=== PATIENT | male | born 1940 | race Caucasian/White ===

== ENCOUNTER 2018-04-08 15:50 | Inpatient (IN) | payer OTHER ==
[2018-04-08] MEDS ORDERED: METOPROLOL TARTRATE 5 MG/5 ML INJ IV ONE (17:01)
[2018-04-08] MEDS ORDERED: NA CHLORIDE 0.9% 1,000 ML ONE (17:05)
[2018-04-08 17:14] LABS: Absolute Lymphocytes (CBC) 1.1 K/uL (0.7-4.9); Absolute Monocytes 0.7 K/uL (0.1-1.3); Absolute Neutrophil 7.5 K/uL (1.8-8.0); Basophils % 0.7 % (0-1.3); Eosinophils % 0.5 % (0-4.4); Hematocrit 34.7 % (39.6-49.0); Lymphocytes % 11.6 % (15.3-44.8); MCH 26.7 pg (27.0-35.0); MCV 82.7 fL (80-100); MPV 8.1 fL (7.6-11.3)
--- NOTE | 2018-04-08 17:17 | RAD REPORT ---
EXAM DESCRIPTION: RAD - Chest Single View - 04/08/2018 5:07 pm CLINICAL HISTORY: Chest pain, shortness of breath, hypotension COMPARISON: September 2010 TECHNIQUE: AP portable chest image was obtained 1653 hours . FINDINGS: No mass, consolidation or failure. Lung markings are not substantially different when adju sting for technique differences. Minimal interstitial edema or infiltrate could be masked. Trachea is midline. Diaphragmatic eventration is noted and stable. Heart and vasculature are normal. No measurable pleural effusion and no pneumothorax. No gross bony abnormality seen. No acute aortic f indings suspected. IMPRESSION: No failure, focal infiltrate or mass lesion. Lung markings are prominent but not substantially different. Mild failure or volume overload could be masked.
[2018-04-08 17:21] LABS: Potassium 4.4 mEq/L (3.6-5.0)
--- NOTE | 2018-04-08 17:21 | EKG ---
Test Date: 2018-04-08 Test Time: 16:36:27 Ammunition Officer: LUCIO MEASUREMENT RESULTS: Intervals: Rate: 152 [place]: QRSD: 94 QT: 304 QTc: 483 [place]: P: WA: QRS: 2 T: 86 INTERPRETIVE STATEMENTS: Atrial fibrillation with rapid ventricular response Abnormal ECG Compared to ECG 06/19/2017 07:19:09 Sinus bradycardia no longer present Electronically Signed On 04-08-18 17:19:59 CDT by Diaz Razo
[2018-04-08 17:31] LABS: Protime INR 1.06
[2018-04-08 17:42] LABS: Albumin 3.8 g/dL (3.2-5.5); Bilirubin Direct 0.1 mg/dL (0-0.2); Bilirubin Total 0.6 mg/dL (0.3-1.2); Magnesium 1.8 mg/dL (1.8-2.5); Protein, Total 7.1 g/dL (6.0-8.3)
--- NOTE | 2018-04-08 18:19 | ER ---
Nurse's Notes [facility] Name: Lauro Masters Age: 77 yrs Sex: Male : 1940 Arrival Date: 04/08/2018 Time: 15:54 Bed 16 Private MD: Diagnosis: Atrial fibrillation and flutter;Cough Presentation: 04/08 16:16 Presenting complaint: Patient states: Reports low BP at home with SOB, CP and aj dizziness. Patient lost his 3 weeks ago. Patient is in NAD in triage. Ambulated with steady gait. Transition of care: patient was not received from another setting of care. Onset of symptoms was April 08, 2018. Care prior to arrival: None. 16:16 Method Of Arrival: Ambulatory aj 16:16 Acuity: KATHLEEN 3 aj 19:05 Initial Sepsis Screen: Does the patient meet any 2 criteria? HR > 90 bpm. Does the ea patient have a suspected source of infection? No. Patient's initial sepsis screen is negative. Triage Assessment: 16:18 General: Appears in no apparent distress. comfortable, Behavior is calm, cooperative, aj appropriate for age. Pain: Complains of pain in chest. Neuro: Level of Consciousness is awake, alert, obeys commands, Oriented to person, place, time, situation. Cardiovascular: Reports chest pain, shortness of breath, Capillary refill < 3 seconds in bilateral fingers Patient's skin is warm and dry. Respiratory: Reports shortness of breath at rest Airway is patent Respiratory effort is even, unlabored, Respiratory pattern is regular, symmetrical. Derm: Skin is intact, is healthy with good turgor, Skin is pink, warm \T\ dry. normal. Historical: - Allergies: 16:18 No Known Allergies; aj - Home Meds: 16:18 aspirin 81 mg Oral chew [Active]; hydrochlorothiazide 25 mg Oral tab [Active]; aj lisinopril 20 mg Oral tab [Active]; simvastatin 20 mg Oral tab [Active]; Prilosec Oral [Active]; metformin 500 mg Oral TG24 [Active]; - PMHx: 16:18 Hyperlipidemia; Hypertension; aj - PSHx: 16:18 colon cancer; aj - Immunization history:: Adult Immunizations up to date. - Social history:: Smoking status: Patient/guardian denies using tobacco. Screenin:40 Abuse screen: Denies threats or abuse. Denies injuries from another. Nutritional sg screening: No deficits noted. Tuberculosis screening: No symptoms or risk factors identified. Never had TB. Fall Risk None identified. Assessment: 17:15 General: Appears in no apparent distress. comfortable, well groomed, well developed, sg well nourished, Behavior is calm, cooperative, appropriate for age. Pain: Denies pain. Neuro: Level of Consciousness is awake, alert, obeys commands, Oriented to person, place, time, situation, Crown Assembly Machine Operator are equal bilaterally Moves all extremities. Full function Gait is steady, Speech is normal, Facial symmetry appears normal. Cardiovascular: Heart tones S1 S2 present Capillary refill is brisk in bilateral fingers Patient's skin is warm and dry. Chest pain is denied. Respiratory: Airway is patent Respiratory effort is even, unlabored, Respiratory pattern is regular, symmetrical, Breath sounds are clear. GI: Abdomen is round non-distended, Bowel sounds. GI: Reports normal bowel habits. : No signs and/or symptoms were reported regarding the genitourinary system. EENT: No signs and/or symptoms were reported regarding the EENT system. Derm: Skin is pink, warm \T\ dry. Musculoskeletal: No signs and/or symptoms reported regarding the musculoskeletal system. 17:56 Reassessment: Patient appears in no apparent distress at this time. Patient and/or sg family updated on plan of care and expected duration. Pain level reassessed. Patient is alert, oriented x 3, equal unlabored respirations, skin warm/dry/pink. Patient denies pain at this time. 18:25 Reassessment: Patient appears in no apparent distress at this time. Patient and/or sg family updated on plan of care and expected duration. Pain level reassessed. Patient is alert, oriented x 3, equal unlabored respirations, skin warm/dry/pink. Patient denies pain at this time. 19:00 Reassessment: Patient appears in no apparent distress at this time. Patient and/or sg family updated on plan of care and expected duration. Pain level reassessed. Patient is alert, oriented x 3, equal unlabored respirations, skin warm/dry/pink. Patient denies pain at this time. 19:05 General: Appears in no apparent distress. comfortable, Behavior is calm, cooperative, ea appropriate for age. Pain: Denies pain. Neuro: Level of Consciousness is awake, alert, obeys commands, Oriented to person, place, time, situation, Crown Assembly Machine Operator are equal bilaterally Speech is normal, Facial symmetry appears normal. 19:05 Cardiovascular: Heart tones S1 S2 present Patient's skin is warm and dry. Chest pain is ea denied. Respiratory: Airway is patent Respiratory effort is even, unlabored, Respiratory pattern is regular, symmetrical, Breath sounds are clear bilaterally. GI: Abdomen is non-distended, Bowel sounds present X 4 quads. : No signs and/or symptoms were reported regarding the genitourinary system. EENT: No signs and/or symptoms were reported regarding the EENT system. Derm: Skin is pink, warm \T\ dry. 19:50 Reassessment: Patient and/or family updated on plan of care and expected duration. Pain ea level reassessed. Patient is alert, oriented x 3, equal unlabored respirations, skin warm/dry/pink. Report called to receiving nurse on fourth floor. Vital Signs: 16:18 BP 124 / 105; Pulse 86; Resp 20; Temp 98.0; Pulse Ox 98% on R/A; Weight 90.72 kg; aj Height 6 ft. 0 in. (182.88 cm); 17:08 Pulse 152 MON; Resp 14 S; Pulse Ox 98% on R/A; Pain 0/10; sg 17:31 BP 102 / 58; Pulse 107 MON; Resp 14 S; Pulse Ox 96% on R/A; Pain 0/10; sg 17:55 BP 111 / 78; Pulse 126; Resp 19 S; Pulse Ox 96% on R/A; Pain 0/10; sg 19:00 BP 131 / 90; Pulse 89; Resp 18; Pulse Ox 98% on R/A; Pain 0/10; ea 19:45 BP 127 / 68; Pulse 61; Resp 18; Temp 97.5(O); Pulse Ox 99% on R/A; Pain 0/10; ea 16:18 Body Mass Index 27.12 (90.72 kg, 182.88 cm) aj 17:08 A fib sg 17:08 notified of VS and cardiac rythm, Orders recieved, see EMAR sg ED Course: 15:54 Patient arrived in ED. mr 16:17 Triage completed. aj 16:18 Lyle Buckley MD is Attending Physician. kdr 16:18 Arm band placed on left wrist. Patient placed in an exam room. yonathan 16:55 Robert Ramirez, RN is Primary Nurse. sg 17:00 Initial lab(s) drawn, by ED staff, sent to lab. Inserted saline lock: 20 gauge in right sg antecubital area, using aseptic technique. Blood collected. IV inserted by credit support specialist Cole. 17:08 CXR XRAY In Process Unspecified. EDMS 17:08 X-ray completed. Portable x-ray completed in exam room. Patient tolerated procedure bb2 well. 17:09 EKG done, by structures technician. reviewed by Lyle Buckley MD. at1 17:10 IV was discontinued by the patient. a pressure dressing was applied, bleeding sg controlled. Inserted saline lock: 20 gauge in left forearm, using aseptic technique. 18:18 Angel Ashford MD is Hospitalizing Provider. kdr 19:05 Patient has correct armband on for positive identification. Bed in low position. Call ea light in reach. 19:47 Dianne Anderson RN is Primary Nurse. ea 20:12 No provider procedures requiring assistance completed. Patient admitted, IV remains in ea place. Administered Medications: 17:03 Drug: Lopressor 5 mg Route: IVP; Site: left forearm; iw 19:05 Follow up: Response: No adverse reaction; Blood pressure is lowered ea 17:10 Drug: NS 0.9% 250 ml Route: IV; Rate: bolus; Site: left wrist; sg 18:26 Drug: PlaVIX 300 mg Route: PO; sg 19:00 Follow up: Response: No adverse reaction ea 18:26 Drug: Lopressor 25 mg Route: PO; sg 20:16 Follow up: Response: No adverse reaction; Blood pressure is lowered ea 18:27 Drug: Aspirin 325 mg Route: PO; sg 19:00 Follow up: Response: No adverse reaction ea Outcome: 18:19 Decision to Hospitalize by Provider. kdr 19:00 Admitted to Med/surg accompanied by tech, via wheelchair, room 421, on monitor, Report ea called to Receiving nurse on fourth floor 19:00 Instructed on the need for admit. 20:12 Condition: stable ea 20:14 Patient left the ED. ea Signatures: Dispatcher [employer] EDRobert Hale, SAMANTHA RN sg Becerril, Andree, RN Lyle Mohr MD MD kdr Rivera, Maria mr David, Venita, RN Andree Perez, pipe line inspector EKG Tat1 Dianne Anderson RN RN ea Bock, Brittany bb2 Corrections: (The following items were deleted from the chart) 17:31 17:30 NS 0.9% 250 ml IV at bolus in left wrist sg sg
--- NOTE | 2018-04-08 18:19 | EDPHYS ---
Physician Documentation [facility] Name: Lauro Masters Age: 77 yrs Sex: Male : 1940 Arrival Date: 04/08/2018 Time: 15:54 Bed 16 Private MD: ED Physician Lyle Buckley HPI: 04/08 18:09 This 77 yrs old Male presents to ER via Ambulatory with complaints of Upper kdr respiratory congestion/cough for about a week and a half. 18:09 The patient or guardian reports cough, that is intermittent, described as mild, with no kdr sputum, difficulty breathing. Onset: The symptoms/episode began/occurred gradually, 1.5 week(s) ago. Severity of symptoms: At their worst the symptoms were mild, moderate, just prior to arrival, in the emergency department the symptoms have improved. Modifying factors: The symptoms are alleviated by nothing, the symptoms are aggravated by exertion. Associated signs and symptoms: Pertinent positives: chest pain, with cough, Pertinent negatives: diarrhea, ear ache, fever, nausea, rhinorrhea, sore throat, vomiting. The patient has not experienced similar symptoms in the past. The patient has not recently seen a physician. Historical: - Allergies: 16:18 No Known Allergies; aj - Home Meds: 16:18 aspirin 81 mg Oral chew [Active]; hydrochlorothiazide 25 mg Oral tab [Active]; aj lisinopril 20 mg Oral tab [Active]; simvastatin 20 mg Oral tab [Active]; Prilosec Oral [Active]; metformin 500 mg Oral TG24 [Active]; - PMHx: 16:18 Hyperlipidemia; Hypertension; aj - PSHx: 16:18 colon cancer; aj - Immunization history:: Adult Immunizations up to date. - Social history:: Smoking status: Patient/guardian denies using tobacco. ROS: 18:13 Constitutional: Negative for fever, chills, and weight loss, Eyes: Negative for injury, kdr pain, redness, and discharge, ENT: Negative for injury, pain, and discharge, Neck: Negative for injury, pain, and swelling, Cardiovascular: Negative for chest pain, palpitations, and edema, Abdomen/GI: Negative for abdominal pain, nausea, vomiting, diarrhea, and constipation, Back: Negative for injury and pain, : Negative for injury, bleeding, discharge, and swelling, MS/Extremity: Negative for injury and deformity, Skin: Negative for injury, rash, and discoloration, Neuro: Negative for headache, weakness, numbness, tingling, and seizure activity. Psych: Negative for depression, anxiety, suicide ideation, homicidal ideation, and hallucinations, Allergy/Immunology: Negative for hives, rash, and allergies, Endocrine: Negative for neck swelling, polydipsia, polyuria, polyphagia, and marked weight changes, Hematologic/Lymphatic: Negative for swollen nodes, abnormal bleeding, and unusual bruising. 18:13 Respiratory: Positive for cough, with no reported sputum, shortness of breath, at rest. Intermittent s/s - is concerned because he can't seem to cough anything up. Exam: 18:13 Constitutional: This is a well developed, well nourished patient who is awake, alert, kdr and in no acute distress. Head/Face: Normocephalic, atraumatic. Eyes: Pupils equal round and reactive to light, extra-ocular motions intact. Lids and lashes normal. Conjunctiva and sclera are non-icteric and not injected. Cornea within normal limits. Periorbital areas with no swelling, redness, or edema. Neck: Trachea midline, no thyromegaly or masses palpated, and no cervical lymphadenopathy. Supple, full range of motion without nuchal rigidity, or vertebral point tenderness. No Meningismus. Chest/axilla: Normal chest wall appearance and motion. Nontender with no deformity. No lesions are appreciated. Cardiovascular: Regular rate and rhythm with a normal S1 and S2. No gallops, murmurs, or rubs. Normal PMI, no JVD. No pulse deficits. Respiratory: Lungs have equal breath sounds bilaterally, clear to auscultation and percussion. No rales, rhonchi or wheezes noted. No increased work of breathing, no retractions or nasal flaring. Abdomen/GI: Soft, non-tender, with normal bowel sounds. No distension or tympany. No guarding or rebound. No evidence of tenderness throughout. Back: No spinal tenderness. No costovertebral tenderness. Full range of motion. Skin: Warm, dry with normal turgor. Normal color with no rashes, no lesions, and no evidence of cellulitis. MS/ Extremity: Pulses equal, no cyanosis. Neurovascular intact. Full, normal range of motion. Neuro: Awake and alert, GCS 15, oriented to person, place, time, and situation. Cranial nerves II-XII grossly intact. Motor strength 5/5 in all extremities. Sensory grossly intact. Cerebellar exam normal. Normal gait. Psych: Awake, alert, with orientation to person, place and time. Behavior, mood, and affect are within normal limits. Vital Signs: 16:18 BP 124 / 105; Pulse 86; Resp 20; Temp 98.0; Pulse Ox 98% on R/A; Weight 90.72 kg; aj Height 6 ft. 0 in. (182.88 cm); 17:08 Pulse 152 MON; Resp 14 S; Pulse Ox 98% on R/A; Pain 0/10; sg 17:31 BP 102 / 58; Pulse 107 MON; Resp 14 S; Pulse Ox 96% on R/A; Pain 0/10; sg 17:55 BP 111 / 78; Pulse 126; Resp 19 S; Pulse Ox 96% on R/A; Pain 0/10; sg 19:00 BP 131 / 90; Pulse 89; Resp 18; Pulse Ox 98% on R/A; Pain 0/10; ea 19:45 BP 127 / 68; Pulse 61; Resp 18; Temp 97.5(O); Pulse Ox 99% on R/A; Pain 0/10; ea 16:18 Body Mass Index 27.12 (90.72 kg, 182.88 cm) aj 17:08 A fib sg 17:08 notified of VS and cardiac rythm, Orders recieved, see EMAR sg MDM: 18:13 Data reviewed: vital signs, nurses notes, lab test result(s), EKG, radiologic studies. kdr Counseling: I had a detailed discussion with the patient and/or guardian regarding: the historical points, exam findings, and any diagnostic results supporting the discharge/admit diagnosis, lab results, radiology results, the need for further work-up and treatment in the hospital. Physician consultation: Angel Ashford MD. Admission orders: after a detailed discussion of the patient's condition and case, the admit orders are written by me. ED course: The patient was improving with the interventions given. 18:19 Patient medically screened. kdr 04/08 16:35 Order name: CBC with Diff; Complete Time: 18:08 kdr 04/08 16:35 Order name: Chem 7; Complete Time: 18:08 kdr 04/08 17:02 Order name: BNP; Complete Time: 18:08 kdr 04/08 17:02 Order name: LFT's; Complete Time: 18:08 kdr 04/08 17:02 Order name: Magnesium; Complete Time: 18:08 kdr 04/08 17:02 Order name: PT-INR; Complete Time: 18:08 kdr 04/08 17:02 Order name: Ptt, Activated; Complete Time: 18:08 kdr 04/08 17:02 Order name: Troponin (emerg Dept Use Only) kdr 04/08 18:23 Order name: Basic Metabolic Panel EDMS 04/08 18:23 Order name: Basic Metabolic Panel EDMS 04/08 18:24 Order name: CBC with Automated Diff EDMS 04/08 18:24 Order name: CBC with Automated Diff EDMS 04/08 18:24 Order name: Troponin I EDMS 04/08 18:24 Order name: Troponin I EDMS 04/08 16:35 Order name: CXR XRAY; Complete Time: 18:08 kdr 04/08 17:02 Order name: EKG; Complete Time: 17:03 kdr 04/08 17:02 Order name: Cardiac monitoring; Complete Time: 17:17 kdr 04/08 18:24 Order name: CONS Physician Consult EDMS 04/08 18:24 Order name: Regular EDMS 04/08 18:24 Order name: Echo with Doppler EDMS 04/08 18:24 Order name: EKG Electrocardiogram EDMS 04/08 18:24 Order name: EKG Electrocardiogram EDMS 04/08 18:24 Order name: EKG Electrocardiogram EDMS 04/08 18:24 Order name: EKG Electrocardiogram EDMS 04/08 18:24 Order name: Troponin I EDMS 04/08 17:02 Order name: EKG - Nurse/Tech; Complete Time: 17:17 kdr 04/08 17:02 Order name: IV Saline Lock; Complete Time: 17:18 kdr 04/08 17:02 Order name: Labs collected and sent; Complete Time: 17:18 kdr 04/08 17:02 Order name: O2 Per Protocol; Complete Time: 17:18 kdr 04/08 17:02 Order name: O2 Sat Monitoring; Complete Time: 17:18 kdr Administered Medications: 17:03 Drug: Lopressor 5 mg Route: IVP; Site: left forearm; iw 19:05 Follow up: Response: No adverse reaction; Blood pressure is lowered ea 17:10 Drug: NS 0.9% 250 ml Route: IV; Rate: bolus; Site: left wrist; sg 18:26 Drug: PlaVIX 300 mg Route: PO; sg 19:00 Follow up: Response: No adverse reaction ea 18:26 Drug: Lopressor 25 mg Route: PO; sg 20:16 Follow up: Response: No adverse reaction; Blood pressure is lowered ea 18:27 Drug: Aspirin 325 mg Route: PO; sg 19:00 Follow up: Response: No adverse reaction ea Disposition: 04/08/18 18:19 Hospitalization ordered by Angel Ashford for Inpatient Admission. Preliminary diagnosis are Atrial fibrillation and flutter, Cough. - Bed requested for Telemetry/MedSurg (Inpatient). - Status is Inpatient Admission. ea - Condition is Fair. - Problem is new. - Symptoms have improved. UTI on Admission? No Signatures: Dispatcher [employer] EDMS Robert Ramirez RN RN Andree Becerril RN RN Lyle Buckley MD MD [facility] Venita Hernandez RN RN José Waller em1 Dianne Anderson RN RN ea Corrections: (The following items were deleted from the chart) 18:41 18:19 Hospitalization Ordered by Angel Ashford MD for Inpatient Admission. Preliminary em1 diagnosis is Atrial fibrillation and flutter; Cough. Bed requested for Telemetry/MedSurg (Inpatient). Status is Inpatient Admission. Condition is Fair. Problem is new. Symptoms have improved. UTI on Admission? No. kdr 20:14 18:41 04/08/2018 18:19 Hospitalization Ordered by Angel Ashford MD for Inpatient ea Admission. Preliminary diagnosis is Atrial fibrillation and flutter; Cough. Bed requested for Telemetry/MedSurg (Inpatient). Status is Inpatient Admission. Condition is Fair. Problem is new. Symptoms have improved. UTI on Admission? No. em1
[2018-04-08] MEDS ORDERED: ACETAMINOPHEN 500 MG TAB PO PRN (18:21)
[2018-04-08] MEDS ORDERED: ONDANSETRON 4 MG/2 ML VIAL IV PRN (18:21)
[2018-04-08] MEDS ORDERED: CLOPIDOGREL 75 MG TABLET ONE (18:22)
[2018-04-08] MEDS ORDERED: METOPROLOL TAR 25 MG TAB ONE (18:22)
[2018-04-08] MEDS ORDERED: ASPIRIN EC 325 MG TABLET PO ONE (18:23)
[2018-04-08 21:56] VITALS: BMI 27.1
[2018-04-09 03:42] LABS: Absolute Lymphocytes (CBC) 2.2 K/uL (0.7-4.9); Absolute Monocytes 0.8 K/uL (0.1-1.3); Absolute Neutrophil 4.2 K/uL (1.8-8.0); Basophils % 0.6 % (0-1.3); Eosinophils % 1.6 % (0-4.4); Hematocrit 32.2 % (39.6-49.0); MCH 26.6 pg (27.0-35.0); MCV 82.7 fL (80-100); Monocytes % 10.8 % (3.3-12.3); RBC Red Blood Cell Count 3.89 M/uL (4.33-5.43)
[2018-04-09 03:48] LABS: Potassium 4.7 mEq/L (3.6-5.0)
--- NOTE | 2018-04-09 07:41 | EKG ---
Test Date: 2018-04-08 Test Time: 23:59:01 Vertical Roll Operator: RT MEASUREMENT RESULTS: Intervals: Rate: 74 MO: 194 QRSD: 94 QT: 446 QTc: 495 [place]: P: -1 MO: 194 QRS: -2 T: 63 INTERPRETIVE STATEMENTS: Sinus bradycardia with sinus arrhythmia with occasional and consecutive premature ventricular complexes Prolonged QT Abnormal ECG Compared to ECG 04/08/2018 16:36:27 Ventricular premature complex(es) now present Prolonged QT interval now present Atrial fibrillation no longer present Electronically Signed On 04-09-18 07:40:19 CDT by Diaz Razo
[2018-04-09 08:12] VITALS: BP 148/64; TEMP 97.9
[2018-04-09] MEDS ORDERED: ASPIRIN EC 81 MG TAB PO SCH (09:00)
[2018-04-09] MEDS ORDERED: CLOPIDOGREL 75 MG TABLET PO SCH (09:00)
--- NOTE | 2018-04-09 09:21 | P.SSS ---
Patient History Date of Service: 04/09/18 Primary Care Provider: Makeda Reason for admission: Paroxysmal atrial fibrillation History of Present Illness: Patient is an office patient of [employer]. He has a history of glucose intolerance, htn and hyperlipidemia. He had an episode of atrial fibrillation last May. He has been coughing for a week or two. Has been complaining of some pleuritic chest pain, post nasal drip. His cough is worsened when he lies down. The patient had some chest tightness. Was not able to get his blood pressure with a home cuff. Drove himself the ER. Was found to be in atrial fib. Was converted with IV labetolol. This morning he only complaints of coughing. The patient's February [birth year]. He does not report crying spells, difficulty sleeping. No suicidal thoughts. No increased drug and alcohol use. He states that his 2 adult children are helping him. Allergies No Known Allergies Allergy (Unverified 06/19/17 11:35) Home Medications: Aspirin 1 tab PO DAILY 04/09/18 Carvedilol [Coreg] 3.125 mg PO BID* #180 tablet 04/09/18 Metformin HCl 1 tab PO DAILY 04/09/18 Simvastatin 1 tab PO DAILY 04/09/18 - Past Medical/Surgical History Has patient received pneumonia vaccine in the past: Yes Diabetic: No -: HTN -: Hyperlipidemia -: GERD -: Hx Colon CA -: Herpes -: Colon resection 1986 -: Left inguinal hernia repair - Family History Brother -: Heart disease, Hypertension, Diabetes, Stroke Notes: macular degeneration bilateral eyes Mother -: Heart disease Father -: Diabetes - Social History Smoking Status: Never smoker Alcohol use: Yes CD- Drugs: No Caffeine use: Yes Place of Residence: Home Review of Systems 10-point ROS is otherwise unremarkable ENT: Nose Discharge Respiratory: Cough, Dry, Pleuritic Pain Physical Examination - Vital Signs Temperature: 97.9 F Blood Pressure: 148/64 Pulse: 56 Respirations: 16 Pulse Ox (%): 94 - Physical Exam General: Alert, In no apparent distress HEENT: Atraumatic, PERRLA, Mucous membr. moist/pink, EOMI, Sclerae nonicteric Neck: Supple, 2+ carotid pulse no bruit, No LAD, Without JVD or thyroid abnormality Respiratory: Clear to auscultation bilaterally, Normal air movement Cardiovascular: Regular rate/rhythm, Normal S1 S2 Gastrointestinal: Normal bowel sounds, No tenderness Musculoskeletal: No tenderness Integumentary: No rashes Neurological: Normal gait, Normal speech, Normal strength at 5/5 x4 extr, Normal tone, Normal affect Lymphatics: No axilla or inguinal lymphadenopathy - Studies Laboratory Data (last 24 hrs) 04/08/18 17:10: PT 12.5, INR 1.06, APTT 28.7 04/08/18 17:10: Magnesium 1.8, Total Bilirubin 0.6, AST 18, ALT 15, Alkaline Phosphatase 70 04/08/18 17:10: B-Natriuretic Peptide 132 H 04/08/18 16:54: Sodium 138, Potassium 4.4, BUN 22 H, Creatinine 1.59 H, Glucose 125 H 04/08/18 16:54: WBC 9.3, Hgb 11.2 L, Hct 34.7 L, Plt Count 260 - Diagnosis (Problem(s)) (1) Paroxysmal atrial fibrillation Current Visit: Yes Status: Acute Plan: Patient is doing better. Have discussed the patient with Dr. Zhao. Plan is to discharge him home. Out patient Holtor monitor and possible echo. Will stop the lisinopril and start him on low dose coreg. Will have him folllow up with Dr. Zhao and then Myself (2) Post-nasal drip Current Visit: Yes Status: Acute Plan: Will start the patient on flonase and claritin. He can also use zinc lozenges. (3) Grief Current Visit: Yes Status: Acute Plan: Patient seem to be in good spirits for the situation. The patient denies any suicidal thoughts. Is worried about the details of taking care of his car and house. (4) Hyperlipidemia Current Visit: No Status: Chronic Plan: stable on simvastatin Qualifiers: Hyperlipidemia type: pure hypercholesterolemia Qualified Code(s): E78.00 - Pure hypercholesterolemia, unspecified; E78.0 - Pure hypercholesterolemia - Disposition Disposition: ROUTINE DISCHARGE Condition: GOOD Consultations: Dr. Zhao Diet: AHA Activity: Ad kelly Physician Review: Patient Assessed, Agree with Above Assessment and Plan Critical Care: No Time Spent Managing Pts Care (In Minutes): 40
[2018-04-09 09:40] VITALS: O2SAT 97
--- NOTE | 2018-04-09 12:33 | ECHO ---
HEIGHT: 6 ft 0 in WEIGHT: 200 lb 0 oz DATE OF STUDY: 04/09/[address]: Lyle Buckley MD 2-DIMENSIONAL: YES M.MODE: YES DOPPLER: YES COLOR FLOW: YES TDS: NO PORTABLE: NO DEFINITY: NO BUBBLE STUDY: NO DIAGNOSIS: NEW ONSET ATRIAL FIBRILLATION CARDIAC HISTORY: CATHERIZATION: NO SURGERY: NO PROSTHETIC VALVE: NO PACEMAKER: NO MEASUREMENTS (cm) DIASTOLIC (NORMALS) SYSTOLIC (NORMALS) IVSd 1.1 (0.6-1.2) LA Diam 4.1 (1.9-4.0) LVEF 52% LVIDd 5.3 (3.5-5.7) LVIDs 3.9 (2.0-3.5) %FS 27% LVPWd 1.1 (0.6-1.2) Ao Diam 2.8 (2.0-3.7) 2 DIMENSIONAL ASSESSMENT: RIGHT ATRIUM: NORMAL LEFT ATRIUM: DILATED RIGHT VENTRICLE: NORMAL LEFT VENTRICLE: NORMAL TRICUSPID VALVE: NORMAL MITRAL VALVE: NORMAL PULMONIC VALVE: NORMAL AORTIC VALVE: SCLEROSIS PERICARDIAL EFFUSION: NONE AORTIC ROOT: NORMAL LEFT VENTRICULAR WALL MOTION: NORMAL. DOPPLER/COLOR FLOW: MILD AORTIC STENOSIS. PEAK/MEAN GRADIENT 26/15mmHg. ESTIMATED AORTIC VALVE AREA 1.6 CENTIMETERS SQUARED. MILD TRICUSPID REGURGITATION, NORMAL RIGHT VENTRICULAR SYSTOLIC PRESSURE. COMMENTS: NORMAL LEFT VENTRICULAR EJECTION FRACTION. DILATED LEFT ATRIUM. MILD AORTIC STENOSIS, NO AORTIC REGURGITATION. MILD TRICUSPID REGURGITATION. TECHNOLOGIST: LASHON ROBERTSON
--- NOTE | 2018-04-09 16:22 | EKG ---
Test Date: 2018-04-09 Test Time: 09:01:39 [employer]: JOHN MEASUREMENT RESULTS: Intervals: Rate: 64 MS: 194 QRSD: 96 QT: 428 QTc: 441 Walker: P: 36 MS: 194 QRS: 12 T: 72 INTERPRETIVE STATEMENTS: Sinus rhythm with premature atrial complexes Otherwise normal ECG Compared to ECG 04/08/2018 23:59:01 Atrial premature complex(es) now present Sinus bradycardia no longer present Sinus arrhythmia no longer present Ventricular premature complex(es) no longer present Prolonged QT interval no longer present Electronically Signed On 04-09-18 16:19:35 CDT by Geovany Zhao
--- NOTE | 2018-04-10 01:43 | CON ---
The patient was admitted on 04/08/[address] Ashford's service. Reason For Consultation: Atrial fibrillation. History Of Present Illness: Mr. Masters is a 77-year-old white male. He is known to me. I saw jeni alves approximately a year ago when he had an episode of orthostatic hypotension. At that time, we took him off hydrochlorothiazide. He has done well in that regard, but he came in with cough and congesti on and pleurisy type of chest pain; and when he came to the emergency room, he was noted to be in atr ial fibrillation that was short-lasting, and he went into normal sinus rhythm. He denied any palpita tion, nausea, vomiting, diaphoresis, PND, orthopnea, pedal edema, palpitation, or syncope. He had a creatinine of 1.59, which is chronic. His chest x-ray was negative. His white count was 7.4. He castellano d a BNP of 132. Troponin was 0.11. Asymptomatic now. Past Medical History: Includes hypertension, dyslipidemia, and diabetes. Medications: Include aspirin, lisinopril, Zocor, and metformin. Allergies: NONE. Review of Systems: Negative. Social History: Negative. Family History: Noncontributory. Physical Examination: Vital Signs: Stable. General: He was in sinus rhythm when I saw him, asymptomatic. HEENT: Negative. Neck: Supple, with no bruit. Chest: Clear. Cardiac: Revealed a regular rhythm and rate without any murmurs, gallops, or rubs. Abdomen: Benign. Extremities: Revealed no clubbing, cyanosis, or edema. Diagnostic Data: As stated earlier. Impression And Plan: Paroxysmal atrial fibrillation. He has a normal echocardiogram. He has a norm al Lexiscan. It is paroxysmal. Every time it happened, it happened secondary to a reason. This jimenez e, he has cough and congestion, which I suggest we remove the lisinopril which may be causing these s ymptoms. This is chronic for him and is getting worse. I think we need to switch the lisinopril to a beta-lane, which will help hopefully prevent his cough and maybe prevent the atrial fibrillation . I am going to see him in the office later and get an event monitor. If he has any more atrial fib rillation without any reason, I would suggest to him getting on Xarelto or Eliquis. The case was dis cussed with Dr. Ashford. I certainly would not embark on any more cardiac workup at this point. As johann arias stated, he has had a normal echocardiogram and a normal Lexiscan in my office. His other probl ems include diabetes, hypertension, dyslipidemia, all of which are stable. He has significant renal insufficiency, which we will watch, and he may do better off the lisinopril in that regard. NB/MODL Voice ID: [id number] Report ID: [id number]
== END 2018-04-09 10:16 | disposition home or self-care (01) | DRG 310 ==
LOC: ER 15:50 → ERHOLD 18:20 → 4TH 19:25
PROVIDERS: ADMIT Internal Medicine; ATTEND Internal Medicine
DX: I48.0 Paroxysmal atrial fibrillation (principal); I10 Essential (primary) hypertension; E78.5 Hyperlipidemia, unspecified; Z79.82 Long term (current) use of aspirin; K21.9 Gastro-esophageal reflux disease without esophagitis; Z85.038 Personal history of other malignant neoplasm of large intestine; R09.82 Postnasal drip; F43.21 Adjustment disorder with depressed mood
CPT/HCPCS: 36415; 71045; 80048; 80076; 83735; 83880; 84484; 85025; 85610; 85730; 93005; 93306; 99285; J7030

== ENCOUNTER 2018-11-04 13:30 | Emergency (ER) | payer OTHER ==
--- OUTSIDE RECORDS SUMMARY | 2018-11-04 13:31 | XMS REPORT ---
:1940 Author Organization eClinicalWorks Care Team Providers Name Role Phone Angel Ashford Provider Role Unavailable Allergies, Adverse Reactions, Alerts Substance Reaction Event Type N.K.D.A. 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 Assessment Microalbuminuria R80.9 Active Assessment Diabetes 1.5, 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, 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 Active (mild) Problem Benign essential hypertension I10 Active Problem Hyperlipidemia E78.5 Active Problem Grief F43.20 Active Problem Benign hypertension with chronic I12.9 Active kidney disease, stage I Assessment Pure hypercholesterolemia E78.00 Active Assessment Essential hypertension I10 Active Assessment Chronic kidney disease, 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 Active (mild) Assessment Paroxysmal atrial fibrillation I48.0 Active Problem Essential hypertension I10 Active Problem Pure hypercholesterolemia E78.00 Active Problem Abnormal kidney function N28.9 Active Assessment Grief F43.20 Active Problem Impaired glucose tolerance R73.02 Active Problem Paroxysmal atrial fibrillation I48.0 Active Medications Medication Code Code Instructions Start End Status Dosage System Date Date Zocor [facility] 61575014718 20 MG Active 1 EACH ONCE A DAY ORALLY Coreg ND 05944181549 3.125 MG Orally April 21, Active bid bid 2017 Metformin HCl [facility] 07124177670 500 MG Orally Inactive 1 each Once a day once a day (in the morning) orally Lisinopril [facility] 98207649458 2.5 MG Orally Jul 13, Active 1 tablet Once a day 2017 Pioglitazone HCl [facility] 66933009412 30 MG Orally Jul 13, Active 1 tablet Once a day 2017 Results No Known Results Summary Purpose eClinicalWorks Submission
--- OUTSIDE RECORDS SUMMARY | 2018-11-04 13:31 | XMS REPORT ---
:1940 Author Organization [employer] Care Team Providers Name Role Phone Angel Ashford Provider Role Unavailable Allergies No Known Allergies Problems Problem Type Condition Code Onset Dates Condition Status Problem Abnormal kidney function N28.9 Active Problem Grief F43.20 Active Problem Impaired glucose tolerance R73.02 Active Problem Hyperglycemia R73.9 Active Problem Sebaceous cyst L72.3 Active Problem Hyperlipidemia E78.5 Active Problem Benign essential hypertension I10 Active Problem Benign hypertension with chronic I12.9 Active kidney disease, stage I Problem Gastroesophageal reflux disease K21.9 Active Problem Colon cancer C18.9 Active Assessment Abnormal kidney function N28.9 Active Assessment Hyperglycemia R73.9 Active Assessment Benign hypertension with chronic I12.9 Active kidney disease, stage I Problem Essential hypertension I10 Active Assessment Pure hypercholesterolemia E78.00 Active Problem Pure hypercholesterolemia E78.00 Active Assessment Paroxysmal atrial fibrillation I48.0 Active Problem Paroxysmal atrial fibrillation I48.0 Active Medications Medication Code Code Instructions Start End Status Dosage System Date Date Aspirin 81 [facility] 88065353708 81 MG Orally Active 1 tablet Once a day Coreg [facility] 56941524921 3.125 MG Orally April 21, Active not 2018 defined Metformin HCl [facility] 80810580438 500 MG Orally Active 1 each Once a day once a day (in the morning) orally Zocor [facility] 11956344987 20 MG Active 1 EACH ONCE A DAY ORALLY Results No Known Results Summary Purpose eClinicalWorks Submission
--- OUTSIDE RECORDS SUMMARY | 2018-11-04 13:31 | XMS REPORT ---
[...] Active Problem Colon cancer C18.9 Active Assessment Grief F43.20 Active Assessment Essential hypertension I10 Active Problem Essential hypertension I10 Active Assessment Seborrheic keratoses L82.1 Active Problem Pure hypercholesterolemia E78.00 Active Assessment Paroxysmal atrial fibrillation I48.0 Active Problem Paroxysmal atrial fibrillation I48.0 Active Medications Medication Code Code Instructions Start End Status Dosage System Date Date Zocor [facility] 22390323986 20 MG Active 1 EACH ONCE A DAY ORALLY Coreg [facility] 67069314910 3.125 MG Orally April 21, Active not 2018 defined Lisinopril [facility] 13094930061 20 MG April 21, Active 1 TABLET 2018 ORALLY ONCE DAILY Metformin HCl [facility] 32364072791 500 MG Active 1 EACH ONCE A DAY (IN THE MORNING) ORALLY Aspirin 81 [facility] 03892891947 81 MG Orally Active 1 tablet Once a day Results No Known Results Summary Purpose eClinicalWorks Submission
--- NOTE | 2018-11-04 15:27 | RAD REPORT ---
EXAM DESCRIPTION: RAD - Ribs Left - 11/04/2018 3:20 pm CLINICAL HISTORY: Left flank pain, rib pain COMPARISON: None. FINDINGS: No displaced rib fracture is evident. No aggressive rib lesion. No underlying pneumothorax, effusion, infiltrate or pulmunary contusion. IMPRESSION: Negative left rib series.
--- NOTE | 2018-11-04 15:34 | ER ---
Nurse's Notes [facility] Name: Lauro Masters Age: 78 yrs Sex: Male : 1940 Arrival Date: 11/04/2018 Time: 13:33 Bed 13 Private MD: Angel Ashford Diagnosis: Mid back pain Presentation: 11/04 13:51 Presenting complaint: Patient states: left flank pain x 4 days ago. Pt denies dysuria, aa5 denies nausea/vomiting. Reports diarrhea. Transition of care: patient was not received from another setting of care. Onset of symptoms was October 2018. Risk Assessment: Do you want to hurt yourself or someone else? Patient reports no desire to harm self or others. Initial Sepsis Screen: Does the patient meet any 2 criteria? No. Patient's initial sepsis screen is negative. Does the patient have a suspected source of infection? No. Patient's initial sepsis screen is negative. Care prior to arrival: None. 13:51 Method Of Arrival: Ambulatory aa5 13:51 Acuity: KATHLEEN 3 aa5 Historical: - Allergies: 13:54 No Known Allergies; aa5 - Home Meds: 13:54 aspirin 81 mg Oral chew [Active]; lisinopril 20 mg Oral tab [Active]; simvastatin 20 mg aa5 Oral tab [Active]; carvedilol 3.125 mg oral tab 2 times per day [Active]; Actos 30 mg Oral tab [Active]; - PMHx: 13:54 Hyperlipidemia; Hypertension; Diabetes - NIDDM; aa5 - PSHx: 13:54 colon cancer; aa5 - Immunization history:: Pneumococcal vaccine is not up to date, Flu vaccine is not up to date. - Social history:: Smoking status: Patient/guardian denies using tobacco. - Ebola Screening: : No symptoms or risks identified at this time. Screenin:21 Abuse screen: Denies threats or abuse. Denies injuries from another. Nutritional bp screening: No deficits noted. Tuberculosis screening: No symptoms or risk factors identified. Fall Risk None identified. Assessment: 14:00 General: Appears in no apparent distress. comfortable, Behavior is calm, cooperative, bp appropriate for age. Pain: Complains of pain in back. Neuro: Level of Consciousness is awake, alert, obeys commands, Oriented to person, place, time, situation, Appropriate for age. 15:40 Reassessment: PT D/C HOME AMBULATORY, DX WITH BACK PAIN. bp Vital Signs: 13:54 BP 163 / 79; Pulse 52; Resp 16 S; Temp 98.0(TE); Pulse Ox 98% on R/A; Weight 88 kg (R); aa5 Height 6 ft. 0 in. (182.88 cm) (R); Pain 6/10; 15:41 BP 151 / 75; Pulse 57; Resp 14; Pulse Ox 99% ; bp 13:54 Body Mass Index 26.31 (88.00 kg, 182.88 cm) aa5 ED Course: 13:33 Patient arrived in ED. mr 13:34 Angel Ashford MD is Private Physician. mr 13:51 Triage completed. aa5 13:51 Arm band placed on. aa5 13:56 Zan Kennedy PA is PHCP. jr8 13:56 Raphael Lin MD is Attending Physician. jr8 14:20 Bryce Vazquez, SAMANTHA is Primary Nurse. bp 14:21 Patient has correct armband on for positive identification. Bed in low position. Call bp light in reach. Side rails up X2. 15:16 XRAY Ribs LEFT In Process Unspecified. EDMS 15:33 Angel Ashford MD is Referral Physician. jr 15:41 No provider procedures requiring assistance completed. Patient did not have IV access bp during this emergency room visit. Administered Medications: No medications were administered Outcome: 15:34 Discharge ordered by . jr8 15:41 Discharged to home ambulatory. bp 15:41 Condition: stable 15:41 Discharge instructions given to patient, Instructed on discharge instructions, follow up and referral plans. medication usage, Demonstrated understanding of instructions, follow-up care, medications, Prescriptions given X 2. 15:42 Patient left the ED. bp Signatures: Dispatcher [employer] EDNV Mynor Floridalma ZhangMariela, RN RN aa5 Zan Kennedy PA PA jr8 Bryce Vazquez, SAMANTHA RN bp
--- NOTE | 2018-11-04 15:35 | EDPHYS ---
Physician Documentation [facility] Name: Lauro Masters Age: 78 yrs Sex: Male : 1940 Arrival Date: 11/04/2018 Time: 13:33 Bed 13 Private MD: Angel Ashford ED Physician Raphael Lin HPI: 11/04 15:10 This 78 yrs old Male presents to ER via Ambulatory with complaints of Back jr8 Pain. 15:10 The patient presents with pain that is acute. The symptoms are located in the left mid jr8 back. Onset: The symptoms/episode began/occurred gradually, 2 day(s) ago. The pain does not radiate. Associated signs and symptoms: The patient has no apparent associated signs or symptoms. The problem was sustained during a fall. Modifying factors: The patient symptoms are alleviated by nothing, the patient symptoms are aggravated by any movement, bending. Severity of symptoms: At their worst the symptoms were mild, in the emergency department the symptoms are unchanged. The patient has not experienced similar symptoms in the past. The patient has not recently seen a physician. Patient stated that he fell on left side about a week ago. Had felt fine up until a couple of days ago. Started to have pain to injury site . Historical: - Allergies: 13:54 No Known Allergies; aa5 - Home Meds: 13:54 aspirin 81 mg Oral chew [Active]; lisinopril 20 mg Oral tab [Active]; simvastatin 20 mg aa5 Oral tab [Active]; carvedilol 3.125 mg oral tab 2 times per day [Active]; Actos 30 mg Oral tab [Active]; - PMHx: 13:54 Hyperlipidemia; Hypertension; Diabetes - NIDDM; aa5 - PSHx: 13:54 colon cancer; aa5 - Immunization history:: Pneumococcal vaccine is not up to date, Flu vaccine is not up to date. - Social history:: Smoking status: Patient/guardian denies using tobacco. - Ebola Screening: : No symptoms or risks identified at this time. ROS: 15:10 Eyes: Negative for injury, pain, redness, and discharge, ENT: Negative for injury, jr8 pain, and discharge, Neck: Negative for injury, pain, and swelling, Cardiovascular: Negative for chest pain, palpitations, and edema, Respiratory: Negative for shortness of breath, cough, wheezing, and pleuritic chest pain, Abdomen/GI: Negative for abdominal pain, nausea, vomiting, diarrhea, and constipation, MS/Extremity: Negative for injury and deformity, Skin: Negative for injury, rash, and discoloration, Neuro: Negative for headache, weakness, numbness, tingling, and seizure. 15:10 Back: Positive for pain with movement, Negative for pain at rest, radiated pain. Exam: 15:10 Head/Face: Normocephalic, atraumatic. Eyes: Pupils equal round and reactive to light, jr8 extra-ocular motions intact. Lids and lashes normal. Conjunctiva and sclera are non-icteric and not injected. Cornea within normal limits. Periorbital areas with no swelling, redness, or edema. ENT: Nares patent. No nasal discharge, no septal abnormalities noted. Tympanic membranes are normal and external auditory canals are clear. Oropharynx with no redness, swelling, or masses, exudates, or evidence of obstruction, uvula midline. Mucous membranes moist. Neck: Trachea midline, no thyromegaly or masses palpated, and no cervical lymphadenopathy. Supple, full range of motion without nuchal rigidity, or vertebral point tenderness. No Meningismus. Chest/axilla: Normal chest wall appearance and motion. Nontender with no deformity. No lesions are appreciated. Cardiovascular: Regular rate and rhythm with a normal S1 and S2. No gallops, murmurs, or rubs. Normal PMI, no JVD. No pulse deficits. Respiratory: Lungs have equal breath sounds bilaterally, clear to auscultation and percussion. No rales, rhonchi or wheezes noted. No increased work of breathing, no retractions or nasal flaring. Abdomen/GI: Soft, non-tender, with normal bowel sounds. No distension or tympany. No guarding or rebound. No evidence of tenderness throughout. Skin: Warm, dry with normal turgor. Normal color with no rashes, no lesions, and no evidence of cellulitis. MS/ Extremity: Pulses equal, no cyanosis. Neurovascular intact. Full, normal range of motion. Neuro: Awake and alert, GCS 15, oriented to person, place, time, and situation. Cranial nerves II-XII grossly intact. Motor strength 5/5 in all extremities. Sensory grossly intact. Cerebellar exam normal. Normal gait. 15:10 Back: pain, that is mild, of the left mid back, ROM is painful, normal spinal alignment noted, CVA tenderness, is absent, vertebral tenderness, is not appreciated, Pain along posterior left rib segment . Vital Signs: 13:54 BP 163 / 79; Pulse 52; Resp 16 S; Temp 98.0(TE); Pulse Ox 98% on R/A; Weight 88 kg (R); aa5 Height 6 ft. 0 in. (182.88 cm) (R); Pain 6/10; 15:41 BP 151 / 75; Pulse 57; Resp 14; Pulse Ox 99% ; bp 13:54 Body Mass Index 26.31 (88.00 kg, 182.88 cm) aa5 MDM: 13:56 Patient medically screened. jr8 15:33 Data reviewed: vital signs, nurses notes, radiologic studies, plain films, and as a jr8 result, I will discharge patient. Data interpreted: Pulse oximetry: on room air is 98 %. Interpretation: normal. Counseling: I had a detailed discussion with the patient and/or guardian regarding: the historical points, exam findings, and any diagnostic results supporting the discharge/admit diagnosis, radiology results, the need for outpatient follow up, a family practitioner, to return to the emergency department if symptoms worsen or persist or if there are any questions or concerns that arise at home. 11/04 14:39 Order name: ANA Ribs LEFT; Complete Time: 15:32 jr8 Administered Medications: No medications were administered Disposition: 11/04/18 15:34 Discharged to Home. Impression: Mid back pain. - Condition is Stable. - Discharge Instructions: Back Pain, Adult, Contusion, Muscle Pain, Adult. - Prescriptions for Ibuprofen 800 mg Oral Tablet - take 1 tablet by ORAL route every 12 hours As needed take with food; 20 tablet. orphenadrine citrate 100 mg Oral Tablet Sustained Release - take 1 tablet by ORAL route 2 times per day As needed; 20 tablet. - Medication Reconciliation Form, Thank You Letter, Antibiotic Education, Prescription Opioid Use form. - Follow up: Angel Ashford MD; When: 5 - 6 days; Reason: Recheck today's complaints, Continuance of care, Re-evaluation by your physician. - Problem is new. - Symptoms have improved. Addendum: 11/10/2018 01:26 Co-signature as Attending Physician, Raphael Lin MD. r n Signatures: Dispatcher [employer] EDLA Raphael Lin MD MD rn Mariela Zhang, RN RN aa5 Zan Kennedy PA PA jr8 Bryce Vazquez, RN RN bp Corrections: (The following items were deleted from the chart) 11/04 15:42 15:34 11/04/2018 15:34 Discharged to Home. Impression: Mid back pain. Condition is bp Stable. Forms are Medication Reconciliation Form, Thank You Letter, Antibiotic Education, Prescription Opioid Use. Follow up: Angel Ashford; When: 5 - 6 days; Reason: Recheck today's complaints, Continuance of care, Re-evaluation by your physician. Problem is new. Symptoms have improved. jr8
[2018-11-04 15:47] VITALS: TEMP 98
[2018-11-04 15:49] VITALS: BP 151/75; O2SAT 99
== END 2018-11-04 15:42 | disposition home or self-care (01) ==
LOC: ER 13:30
DX: M54.6 Pain in thoracic spine (principal); I10 Essential (primary) hypertension; E11.9 Type 2 diabetes mellitus without complications; E78.5 Hyperlipidemia, unspecified; Z79.82 Long term (current) use of aspirin; Z85.038 Personal history of other malignant neoplasm of large intestine
CPT/HCPCS: 99283

== ENCOUNTER 2019-07-06 09:17 | Emergency (ER) | payer OTHER ==
--- OUTSIDE RECORDS SUMMARY | 2019-07-06 09:19 | XMS REPORT ---
[...] End Status Dosage System Date Date Zocor [facility] 30733073807 20 MG Active 1 EACH ONCE A DAY ORALLY Coreg [facility] 05888070327 3.125 MG Orally April 21, Active not [address] [facility] 23540971296 20 MG April 21, Active 1 TABLET 2018 ORALLY ONCE DAILY Metformin HCl [facility] 71730185058 500 MG Active 1 EACH ONCE A DAY (IN THE MORNING) ORALLY Aspirin 81 [facility] 43285849318 81 MG Orally Active 1 tablet Once a day Results No Known Results Summary Purpose eClinicalWorks Submission
--- OUTSIDE RECORDS SUMMARY | 2019-07-06 09:19 | XMS REPORT ---
[...] Status Dosage System Date Date Aspirin 81 [facility] 84254129906 81 MG Orally Active 1 tablet Once a day Coreg [facility] 50246695540 3.125 MG Orally April 21, Active not 2018 defined Metformin HCl [facility] 81793753521 500 MG Orally Active 1 each Once a day once a day (in the morning) orally Zocor [facility] 20471974878 20 MG Active 1 EACH ONCE A DAY ORALLY Results No Known Results Summary Purpose eClinicalWorks Submission
--- OUTSIDE RECORDS SUMMARY | 2019-07-06 09:20 | XMS REPORT ---
[...] End Status Dosage System Date Date Zocor [facility] 30666919189 20 MG Active 1 EACH ONCE A DAY ORALLY Coreg ND 72750090651 3.125 MG Orally April 21, Active bid bid 2017 Metformin HCl [facility] 93469124453 500 MG Orally Inactive 1 each Once a day once a day (in the morning) orally Lisinopril [facility] 67629154191 2.5 MG Orally Jul 13, Active 1 tablet Once a day 2017 Pioglitazone HCl [facility] 06991631197 30 MG Orally Jul 13, Active 1 tablet Once a day 2017 Results No Known Results Summary Purpose eClinicalWorks Submission
[2019-07-06] MEDS ORDERED: HYDROCODONE/APAP 5/325 MG TAB ONE (09:45)
[2019-07-06] MEDS ORDERED: IBUPROFEN 400 MG TAB ONE (09:45)
--- NOTE | 2019-07-06 09:49 | ER ---
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 Patient reports that it seems to be aggravated by the sun. Transition of care: patient was not received from another setting of care. Onset of symptoms was June 29, 2019. Risk Assessment: Do you want to hurt yourself or someone else? Patient reports no desire to harm self or others. Initial Sepsis Screen: Does the patient meet any 2 criteria? No. Patient's initial sepsis screen is negative. Does the patient have a suspected source of infection? No. Patient's initial sepsis screen is negative. Care prior to arrival: None. 09:27 Method Of Arrival: Ambulatory ss 09:27 Acuity: KATHLEEN 4 ss Historical: - Allergies: 09:29 No Known Allergies; ss - PMHx: 09:29 Diabetes - NIDDM; Hyperlipidemia; Hypertension; ss - PSHx: 09:29 colon cancer; ss - Immunization history:: Adult Immunizations up to date. - Social history:: Smoking status: Patient/guardian denies using tobacco. - Ebola Screening: : Patient denies exposure to infectious person Patient denies travel to an Ebola-affected area in the 21 days before illness onset. Screenin:25 Abuse screen: Denies threats or abuse. Denies injuries from another. Nutritional sv screening: No deficits noted. Tuberculosis screening: No symptoms or risk factors identified. Fall Risk None identified. Assessment: 09:32 General: Appears in no apparent distress. uncomfortable, well developed, Behavior is sv calm, cooperative, appropriate for age. Neuro: Level of Consciousness is awake, alert, obeys commands, Oriented to person, place, time, situation, Moves all extremities. Full function Gait is steady. Respiratory: Airway is patent Respiratory effort is even, unlabored, Respiratory pattern is regular, symmetrical. Derm: Skin is pink, warm \T\ dry. Rash noted that is red, raised, on right mandible and right cheek and right zygomatic area and right ear Redness noted to the right side of face. Musculoskeletal: Range of motion: intact in all extremities. 10:00 Reassessment: Patient appears in no apparent distress at this time. No changes from sv previously documented assessment. Patient and/or family updated on plan of care and expected duration. Pain level reassessed. Patient is alert, oriented x 3, equal unlabored respirations, skin warm/dry/pink. Vital Signs: 09:29 BP 162 / 99; Pulse 68; Resp 16; Temp 98.4(TE); Pulse Ox 98% on R/A; Weight 90.72 kg; ss Height 6 ft. 0 in. (182.88 cm); Pain 9/10; 09:29 Body Mass Index 27.12 (90.72 kg, 182.88 cm) ED Course: 09:20 Patient arrived in ED. as 09:20 Angel Ashford MD is Private Physician. as 09:24 Brina Ruth RN is Primary Nurse. sv 09:24 Arm band placed on Patient placed in an exam room, on a stretcher. sv 09:25 Patient has correct armband on for positive identification. Bed in low position. Call sv light in reach. Adult w/ patient. Door closed. Head of bed elevated. 09:28 Gustavo Hernandez PA is PHCP. cp 09:28 Raphael Lin MD is Attending Physician. cp 09:28 Triage completed. ss 09:32 Nurse Practitioner and/or Physician Security System Installer to see patient. sv 09:49 Angel Ashford MD is Referral Physician. cp 10:01 No provider procedures requiring assistance completed. Patient did not have IV access sv during this emergency room visit. Administered Medications: 09:59 Drug: Ibuprofen 800 mg Route: PO; sv 09:59 Follow up: Response: Medication administered at discharge. sv 09:59 Drug: HYDROcodone-acetaminophen (5 mg-500 mg) 1 tabs Route: PO; sv 09:59 Follow up: Response: Medication administered at discharge. sv 10:35 Follow up: Response: Medication administered at discharge.; RASS 0 sv Outcome: 09:50 Discharge ordered by MD. cp 10:00 Discharged to home ambulatory, with family. sv 10:00 Condition: stable 10:00 Discharge instructions given to patient, family, Instructed on discharge instructions, follow up and referral plans. medication usage, Demonstrated understanding of instructions, follow-up care, medications, Prescriptions given X 4. 10:01 Patient left the ED. Signatures: Brina Ruth RN RN Mary Ann Aguilar Shelby, RN RN ss Gustavo Hernandez PA PA cp Corrections: (The following items were deleted from the chart) 10:35 09:59 Response: Medication administered at discharge. [facility] 16:37 09:32 Derm: Skin is pink, warm \T\ dry. sv sv
--- NOTE | 2019-07-06 09:49 | EDPHYS ---
Physician Documentation [facility] Name: Lauro Masters Age: 79 yrs Sex: Male : 1940 Arrival Date: 07/06/2019 Time: 09:20 Bed 20 Private MD: Angel Ashford ED Physician Raphael Lin HPI: 07/06 09:40 This 79 yrs old Male presents to ER via Ambulatory with complaints of Rash, cp Facial Pain. 09:40 The patient's rash thought to be caused by an unknown cause. The rash is located on the cp right mandible and right cheek and right zygomatic area and right ear. 09:40 The rash can be described as erythematous. Onset: The symptoms/episode began/occurred 1 cp week(s) ago. Associated signs and symptoms: Pertinent positives: Pain Pertinent negatives: difficulty breathing, fever, wheezing. Historical: - Allergies: 09:29 No Known Allergies; ss - PMHx: 09:29 Diabetes - NIDDM; Hyperlipidemia; Hypertension; ss - PSHx: 09:29 colon cancer; ss - Immunization history:: Adult Immunizations up to date. - Social history:: Smoking status: Patient/guardian denies using tobacco. - Ebola Screening: : Patient denies exposure to infectious person Patient denies travel to an Ebola-affected area in the 21 days before illness onset. ROS: 09:44 Eyes: Negative for injury, pain, redness, and discharge. cp 09:44 Constitutional: Negative for body aches, chills, fever, poor PO intake. 09:44 ENT: Positive for ear pain, Negative for drainage from ear(s), difficulty swallowing, difficulty handling secretions. 09:44 Respiratory: Negative for cough, shortness of breath, wheezing. 09:44 Abdomen/GI: Negative for abdominal pain, nausea, vomiting, and diarrhea. 09:44 Skin: Positive for rash, of the face. 09:44 Neuro: Negative for altered mental status, numbness, weakness. 09:44 All other systems are negative. Exam: 09:45 Constitutional: The patient appears in no acute distress, alert, awake, cp non-diaphoretic, non-toxic, well developed, well nourished. 09:45 Head/face: Noted is rash, of the right ear, right zygomatic area, right cheek and right mandible, swelling, that is mild, tenderness, that is moderate. 09:45 Eyes: Periorbital structures: appear normal, Pupils: equal, round, and reactive to light and accomodation, Extraocular movements: intact throughout, Conjunctiva: normal, no exudate, no injection, Lids and lashes: appear normal, bilaterally. 09:45 ENT: Ear canal(s): cerumen impaction, that is moderate, bilaterally, Nose: is normal, Mouth: Lips: moist, Oral mucosa: moist, Posterior pharynx: Airway: no evidence of obstruction, patent, Tonsils: are normal in appearance. 09:45 Neck: ROM/movement: is normal, is supple, without pain, no range of motions limitations, no meningismus, no nuchal rigidity. 09:45 Chest/axilla: Inspection: normal, Palpation: is normal, no crepitus, no tenderness. 09:45 Cardiovascular: Rate: normal, Rhythm: regular. 09:45 Respiratory: the patient does not display signs of respiratory distress, Respirations: normal, no use of accessory muscles, no retractions, no splinting, no tachypnea, labored breathing, is not present, Breath sounds: are clear throughout, no decreased breath sounds, no stridor, no wheezing. 09:45 Abdomen/GI: Inspection: abdomen appears normal, Palpation: abdomen is soft and non-tender, in all quadrants, rebound tenderness, is not appreciated, involuntary guarding, is not appreciated. 09:45 Skin: cellulitis, irregular, on the face, rash can be described as erythematous, on the face. Vital Signs: 09:29 BP 162 / 99; Pulse 68; Resp 16; Temp 98.4(TE); Pulse Ox 98% on R/A; Weight 90.72 kg; ss Height 6 ft. 0 in. (182.88 cm); Pain 9/10; 09:29 Body Mass Index 27.12 (90.72 kg, 182.88 cm) ss MDM: 09:29 Patient medically screened. cp 09:30 Differential diagnosis: allergic reaction, cellulitis, herpes zoster. cp 09:49 Data reviewed: vital signs, nurses notes, I have discussed the patient's cp presentation/case with the attending Emergency Department Physician; and as a result, I will discharge patient. Administered Medications: 09:59 Drug: Ibuprofen 800 mg Route: PO; sv 09:59 Follow up: Response: Medication administered at discharge. sv 09:59 Drug: HYDROcodone-acetaminophen (5 mg-500 mg) 1 tabs Route: PO; sv 09:59 Follow up: Response: Medication administered at discharge. sv 10:35 Follow up: Response: Medication administered at discharge.; RASS 0 sv Disposition: 10:05 Chart complete. cp 10:43 Co-signature as Attending Physician, Raphael Lin MD. rn Disposition: 07/06/19 09:50 Discharged to Home. Impression: Zoster [herpes zoster] - right mandibular nerve, Cellulitis of face. - Condition is Stable. - Discharge Instructions: Cellulitis, Adult, Shingles. - Prescriptions for Clindamycin HCl 300 mg Oral Capsule - take 1 capsule by ORAL route every 6 hours for 10 days; 40 capsule. Tramadol 50 mg Oral Tablet - take 1 tablet by ORAL route every 8 hours as needed; 15 tablet. Acyclovir 800 mg Oral Tablet - take 1 tablet by ORAL route 5 times per day for 10 days; 50 tablet. Medrol (Clark) 4 mg Oral Tablets, Dose Pack - take 1 tablet by ORAL route as directed - follow package instructions; 1 packet. - Medication Reconciliation Form, Thank You Letter, Antibiotic Education, Prescription Opioid Use form. - Follow up: Angel Ashford MD; When: 2 - 3 days; Reason: Recheck today's complaints. - Problem is new. - Symptoms have improved. Signatures: Brina Ruth RN RN sv Nieto, Roman, MD MD rn Smirch, Shelby, RN RN ss Page, Corey, PA PA cp Corrections: (The following items were deleted from the chart) 10:01 09:50 07/06/2019 09:50 Discharged to Home. Impression: Zoster [herpes zoster] - right sv mandibular nerve; Cellulitis of face. Condition is Stable. Forms are Medication Reconciliation Form, Thank You Letter, Antibiotic Education, Prescription Opioid Use. Follow up: Angel Ashford; When: 2 - 3 days; Reason: Recheck today's complaints. Problem is new. Symptoms have improved. cp
[2019-07-06 10:02] VITALS: BP 162/99; TEMP 98.4; O2SAT 98
== END 2019-07-06 10:01 | disposition home or self-care (01) ==
LOC: ER 09:17
DX: B02.9 Zoster without complications (principal); L03.211 Cellulitis of face; E11.9 Type 2 diabetes mellitus without complications; E78.5 Hyperlipidemia, unspecified; I10 Essential (primary) hypertension
CPT/HCPCS: 99283

== ENCOUNTER 2020-09-29 08:59 | Emergency (ER) | payer OTHER ==
--- OUTSIDE RECORDS SUMMARY | 2020-09-29 09:04 | XMS REPORT | Continuity of Care Document ---
:1940 Author Organization [facility] t Address [address] [place] [address] Care Team Providers Name Role Phone Unavailable Unavailable Unavailable Problems This patient has no known problems. Allergies, Adverse Reactions, Alerts This patient has no known allergies or adverse reactions. Medications Ordered Filled Start Stop Current Ordering Indication Dosage Frequency Signature Comments Components Source Medication Medication Date Date Medication? Clinician (SIG) Name Name Gabapentin Gabapentin 2018-11 Yes Josie [address] [facility] Acyclovir Acyclovir Yes Josie [address] [facility] Lisinopril Lisinopril Yes Josie [address] [facility] Pioglitazon Pioglitazon Yes Josie [address] [facility] HCl e HCl [facility] Simvastatin Simvastatin Yes Josie TAKE [address] [facility] TABLET BY [facility] - MOUTH ONCE [facility] A DAY l [facility] Aspirin Aspirin Yes Josie as [facility] Lisinopril Lisinopril Yes Josie TAKE [address] [facility] TABLET BY [facility] - MOUTH [facility] EVERY DAY l [facility] Carvedilol Carvedilol Yes Josie take [address] [facility] tablet by [facility] - mouth [facility] twice l daily [facility] Simvastatin Simvastatin Yes Josie TAKE [address] [facility] TABLET BY [facility] - MOUTH ONCE [facility] A DAY l Outpati ent Clinics Procedures This patient has no known procedures. Encounters Start End Encounter Admission Attending Care Care Encounter Source Date/Time Date/Time Type Type Clinicians Facility Department ID 2020-09-27 2020-09-27 Outpatient [facility] [id number] [facility] 2020-07-06 2020-07-06 [facility] [id number] [facility] 09:[facility]00 09:[facility]:00 t Specialty/U [facility] - Specialty [facility]y [facility]Urology [facility] l Clinic Outpati ent Clinics 2020-07-04 2020-07-04 [facility] [id number] [facility] 09:44:00 09:44:00 t Specialty/U Denita [facility]es - Specialty rology [facility] /Urology Clinic l Clinic Outpati ent Clinics 2020-04-05 2020-04-05 [facility] [id number] [facility] 09:00:00 09:00:00 t Specialty/U Denita kes - Specialty rology [facility]Urology Clinic l Clinic Outpati ent Clinics 2020-03-30 2020-03-30 [facility] [id number] [facility] 16:10[facility]00 16:10:00 [facility] Medicine l Medicine Outpati ent Clinics 2020-03-27 2020-03-27 [facility] [id number] [facility] 09:40:00 09:40:00 t [facility] Medicine Medicine Outpati ent Clinics 2020-02-10 2020-02-10 [facility] [id number] [facility] 09:55[facility]00 09:55:00 [facility] Medicine l Medicine Outpati ent Clinics 2019-12-29 2019-12-29 [facility] [id number] [facility] 17:22:00 17:22:00 [facility] Medicine Medicine Outpati ent Clinics 2019-12-28 2019-12-28 [facility] [id number] [facility] 09:40:00 09:40:00 t [facility] Medicine Medicine Outpati ent Clinics 2019-12-07 2019-12-07 [facility] [id number] [facility] 11:56:00 11:56:00 t [facility] Medicine Outpati ent Clinics 2019-11-05 2019-11-05 [facility] [id number] [facility] 10:21:00 10:21:00 t [facility] Medicine l Medicine Outpati ent Clinics 2019-10-01 2019-10-01 [facility] [id number] [facility] 09:00:00 09:00:00 t [facility] Medicine Outpati ent Clinics 2019-09-27 2019-09-27 [facility] [id number] [facility] 09:00:00 09:00:00 t [facility] Medicine Outpati ent Clinics 2019-09-23 2019-09-23 [facility] [id number] [facility] 14:54:00 14:54:00 t [facility] Medicine Outpati ent Clinics 2019-08-16 2019-08-16 [facility] [id number] [facility] 09:30:00 09:30:00 t [facility] Medicine Outpati ent Clinics 2019-08-12 2019-08-12 [facility] [id number] [facility] 09:45:00 09:45:00 t [facility] Medicine Medicine Outpati ent Clinics 2019-08-03 2019-08-03 [facility] [id number] 11:55:00 11:55:00 t [facility] Medicine Outpati ent Clinics 2019-07-27 2019-07-27 [facility] [id number] [facility] 10:20:00 10:20:00 t [facility] Medicine Outpati ent Clinics 2019-07-20 2019-07-20 [facility] [id number] 10:00:00 10:00:00 [facility] Medicine Outpati ent Clinics 2019-07-13 2019-07-13 [facility] [id number] 10:30:00 10:30:00 [facility] Medicine Outpati ent Clinics 2018-07-13 2018-07-13 [place] [id number] [facility] 09:45:00 09:45:00 [facility] Medicine Outpati ent Clinics 2018-06-02 2018-06-02 Out[facility] [id number] [facility] 08:45:00 08:45:00 [facility] Medicine Outpati ent Clinics 2018-04-21 2018-04-21 Out[facility] [id number] [facility] 09:00:00 09:00:00 [facility] Outpati ent Clinics Results This patient has no known results.
--- OUTSIDE RECORDS SUMMARY | 2020-09-29 09:04 | XMS REPORT ---
:1940 Author Organization [employer] Care Team Providers Name Role Phone Josie Mena Provider Role Unavailable Allergies, Adverse Reactions, Alerts Substance Reaction Event Type N.K.D.A. 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 Problem Post herpetic neuralgia B02.29 Acti ve Problem Pain in right shoulder M25.511 Activ e Problem Encounter for immunization Z23 A ctive Problem Hyperglycemia R73.9 Active Problem Type 2 diabetes mellitus with E11.22 Active diabetic chronic kidney disease Problem Chronic kidney disease, stage 3 N18.3 Active (moderate) Problem Other chronic pain G89.29 Active Problem History of colon cancer Z85.038 Acti ve Problem Pure hypercholesterolemia E78.00 Ac tive Assessment Elevated PSA R97.20 Active Problem Benign essential hypertension I10 Active Problem Grief F43.20 Active Problem Paroxysmal atrial fibrillation I48.0 Active Problem Gastroesophageal reflux disease K21.9 Active Problem Impaired glucose tolerance R73.02 A ctive Problem Sebaceous cyst L72.3 Active Medications Medication Code Code Instructions Start End Status Dosage System Date Date Simvastatin [facility] 08879930453 20.000 Active TAKE 1 TABLET BY MOUTH ONCE A DAY Lisinopril [facility] 58912994131 2.500 Active TAKE 1 TABLET BY MOUTH EVERY DAY Lisinopril [facility] 28107774866 2.5 MG Orally Jul 13, Active 1 t ablet Once a day 2017 Simvastatin [facility] 02912997875 20 Active TAKE 1 TABLET BY MOUTH ONCE A DAY Gabapentin ND 85517693270 100 MG Orally Oct 01, Active 1 c apsule Once a day 2018 Carvedilol ND 13032276840 3.125 MG Orally Active t belinda 1 Twice a day tablet by mouth twice daily Pioglitazone HCl [facility] 15751594514 30 MG Orally Active 1 tablet Once a day Aspirin [facility] 73621827646 81 MG Orally Active as dire cted Acyclovir [facility] 05528248455 400 MG Orally Jul 27, Active 1 t able Four times a 2018 day Results No Known Results Summary Purpose [employer] Submission
--- OUTSIDE RECORDS SUMMARY | 2020-09-29 09:04 | XMS REPORT ---
:1940 Author Organization [employer] Care Team Providers Name Role Phone Josie Mena Provider Role Unavailable Allergies No Known Allergies [...] ve Problem Pure hypercholesterolemia E78.00 Ac tive Problem Benign essential hypertension I10 Active Problem Grief F43.20 Active Problem Paroxysmal atrial fibrillation I48.0 Active Problem Gastroesophageal reflux disease K21.9 Active Problem Impaired glucose tolerance R73.02 A ctive Problem Sebaceous cyst L72.3 Active Medications No Known Medications Results No Known Results Summary Purpose [employer] Submission
--- OUTSIDE RECORDS SUMMARY | 2020-09-29 09:04 | XMS REPORT ---
:1940 Author Organization [facility] Address 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 564671540 Problem Pain in right M25.511 Active [id number] shoulder Problem Sebaceous cyst L72.3 Active 983071318 Problem Other chronic pain G89.29 Active 00694089 Problem Gastroesophageal K21.9 Active 318521128 reflux disease Problem 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 Problem History of colon Z85.038 Active 037132294 cancer Problem Chronic kidney N18.3 Active 696400352 disease, stage 3 (moderate) Problem Encounter for Z23 Active 905596345 immunization ALLERGIES No Known Allergies ENCOUNTERS from 1940 to 2020-09-27 Encounter Location Date Provider Diagnosis [facility] [address] Sep, Adry Acevedo Type 2 diabetes Family [facility] [address], [facility] [place] [address] chronic kidney disease E11.22 ; Encoun ter for administration of vaccine Z23 ; Osteophyte of r ight shoulder M25.71 1 ; Paroxysmal atri al fibrillation I4 8.0 and History of colo n cancer Z85.038 IMMUNIZATIONS Vaccine Route Administration Date Status FLUZONE HIGH DOSE OVER 65 IM Intramuscular Sep 27, 2020 Admin istered FLUZONE HIGH DOSE OVER 65 Unknown Dec 28, 2019 Leesa diggs SOCIAL HISTORY Tobacco Use: Social History Observation Description Date Details (start date - stop date) Never Smoker Sex Assigned At : Social History Observation Description Sex Assigned At Unknown PHQ9 Question Answer Notes Little interest or pleasure in doing things Not at all Feeling down, depressed, or hopeless Not at all Trouble falling or staying asleep or sleeping too much Not a t all Feeling tired or having little energy Not at all Poor appetite or overeating Not at all Feeling bad about yourself, or that you are a failure, or castellano ve let Not at all yourself or your family down Trouble concentrating on things, such as reading the newspap er or Not at all watching television Moving or speaking so slowly that other people could have no ticed; Not at all or the opposite, being so fidgety or restless that you have been moving around a lot more than usual Total Score 0 Thoughts that you would be better off or of hurting you rself in Not at all some way Alcohol Screen Question Answer Notes Did you have a drink containing alcohol in Yes the past year? Points 2 Interpretation Negative How often did you have a drink containing Two to four times a month (2 points) alcohol in the past year? Tobacco Use/Smoking Question Answer Notes Are you a never smoker Tobacco use other than smoking: Question Answer Notes Are you an other tobacco user? No REASON FOR REFERRAL No Information VITAL SIGNS Height 70 in Sep, Weight 202.4 lbs Sep, Temperature 97.7 degrees Fahrenheit Sep, BMI 29.04 kg/m2 Sep, Oximetry 97 % Sep, Respiratory Rate 16 /min Sep, Blood pressure systolic 130 mm Hg Sep, Blood pressure diastolic 82 mm Hg Sep, MEDICATIONS Medication SIG (Take, Route, Frequency, Start Date End Date Status Duration) Carvedilol 3.125 MG take 1 tablet by mouth twice Active daily Orally Twice a day for 90 days Simvastatin 20 TAKE 1 TABLET BY MOUTH ONCE A Active DAY for 90 Lisinopril 2.5 MG 1 tablet Orally Once a day Jun, Active for 30 days Gabapentin 100 MG 1 capsule Orally Once a day Sep, Active for 30 day(s) Acyclovir 400 MG 1 tablet Orally Four times a 03 Jul, 2019 Not-Taking day for 10 days Simvastatin 20.000 TAKE 1 TABLET BY MOUTH ONCE A Active DAY for 90 Pioglitazone HCl 30 MG 1 tablet Orally Once a day Active for 90 Lisinopril 2.500 TAKE 1 TABLET BY MOUTH EVERY Active DAY for 90 Aspirin 81 MG as directed Orally Active PROCEDURES No Information RESULTS Component Value Reference Range HEMOGLOBIN A1C Reviewed date:09/27/2020 10:07:09 Interpretation: Performing Lab: A1C 6.1 REASON FOR VISIT 6 month f/u MEDICAL (GENERAL) HISTORY Type Description Date Medical History Sebaceous cyst Medical History Colon cancer Medical History Hyperglycemia Medical History Benign essential hypertension Medical History Hyperlipidemia Medical History Gastroesophageal reflux disease Medical History Benign hypertension with chronic kidney disease, stage I Medical History Hyperglycemia Medical History Hyperglycemia Surgical History colon resection Surgical History hernia repair Goals Section No Information Health Concerns No Information MEDICAL EQUIPMENT No Information MENTAL STATUS No Information FUNCTIONAL STATUS No Information ASSESSMENTS Encounter Date Diagnosis Notes Sep, Type 2 diabetes mellitus with diabetic c hronic kidney disease (ICD-10 - E11.22) Sep, Osteophyte of right shoulder (ICD-10 - M 25.711) Sep, Encounter for administration of vaccine (ICD-10 - Z23) Sep, History of colon cancer (ICD-10 - Z85.03 8) Sep, Paroxysmal atrial fibrillation (ICD-10 - I48.0) PLAN OF TREATMENT Medication Medication Name Sig Start Date Stop Date Carvedilol 3.125 MG take 1 tablet by mouth twice daily Orally Twice a day for 90 days Treatment Notes Assessment Notes Clinical Notes Type 2 diabetes mellitus with meds as kemar BP daily and diabetic chronic kidney disease record Encounter for administration of given vaccine Osteophyte of right shoulder will monitor Paroxysmal atrial fibrillation med as kemar p;chhayase dailykeep appt with cardiology as scheduledreport if sudden re onet of A-Fib History of colon cancer f/u with GI as scheduled Next Appt Details 3 Months Reason: Provider Name:Adry Acevedo, 2020-12-28 09 :40:00 AM, [address] [facility], [address], [place], [address], Provider Name:Josie Mena, 09:15:00 AM, [address] [facility], [facility] [address], [place], [address], Insurance Providers Payer Name Payer Address Payer Insured Patient Coverage Cover age Phone Name Relationship to Start Date End Date Insured MEDICARE Attn Part B [id number] nalini Masters 2010 [employer] Claims [address] [place] [address] [facility] [address] [employer] [phone] nalini [place] [address] [place] [address]
[2020-09-29 09:59] LABS: Absolute Lymphocytes (CBC) 1.1 K/uL (0.7-4.9); Basophils % 0.7 % (0-1.3); Hematocrit 35.6 % (39.6-49.0); Lymphocytes % 13.4 % (15.3-44.8); MPV 8.1 fL (7.6-11.3); RBC Red Blood Cell Count 3.92 M/uL (4.33-5.43)
[2020-09-29 10:13] LABS: Potassium 4.2 mmol/L (3.5-5.1)
[2020-09-29 10:53] LABS: Urine Blood NEGATIVE (NEG); Urine Glucose NEGATIVE (NEG); Urine Protein TRACE (NEG); Urine Specific Gravity 1.025 (1.005-1.030)
--- NOTE | 2020-09-29 12:17 | RAD REPORT ---
EXAM DESCRIPTION: CTAbdomen Pelvis W Contrast - 09/29/2020 12:06 pm CLINICAL HISTORY: Abdominal pain. ABD PAIN COMPARISON: No comparisons TECHNIQUE: Biphasic CT imaging of the abdomen and pelvis was performed with 100 ml non-ionic IV cont rast. All CT scans are performed using dose optimization technique as appropriate and may include automated exposure control or mA/KV adjustment according to patient size. FINDINGS: The lung bases are clear. The liver, spleen, pancreas, adrenal glands and kidneys are within normal limits. Mildly hyperdense l eft renal cyst is present measuring 20 mm. No bowel obstruction, free air, free fluid or abscess. Postoperative changes are seen involving the r ight colon. Inflammatory changes are present surrounding the sigmoid colon in the lower pelvis are mu ltiple diverticula are present. The appendix appears absent. Prostate gland is mildly prominent. No e vidence of significant lymphadenopathy. No suspicious bony findings. IMPRESSION: Mild acute sigmoid diverticulitis is suspected. No abscess or other complication evident . Following appropriate treatment, followup colonoscopy would be recommended.
--- NOTE | 2020-09-29 12:28 | EDPHYS ---
Physician Documentation [facility] Name: Lauro Masters Age: 80 yrs Sex: Male : 1940 Arrival Date: 09/29/2020 Time: 09:02 Bed 5 Private MD: Adry Acevedo ED Physician Lyle Buckley HPI: 09/29 09:27 This 80 yrs old Male presents to ER via Ambulatory with complaints of Urinary kdr Problem. 09:27 The patient presents with urinary symptoms, urinary frequency, retention, Feels kdr pressure but is still able to urinate. Onset: The symptoms/episode began/occurred gradually, 3 day(s) ago. Modifying factors: The symptoms are alleviated by nothing, the symptoms are aggravated by nothing, Feels like he has to go and is not emptying. Associated signs and symptoms: The patient has no apparent associated signs or symptoms. Severity of symptoms: At their worst the symptoms were mild, moderate, just prior to arrival, a " 4" out of "10", in the emergency department the symptoms have improved, mildly, a " 2" out of "10". The patient has not experienced similar symptoms in the past. The patient has not recently seen a physician. Historical: - Allergies: 09:12 No Known Allergies; hb - Home Meds: 09:12 Actos 30 mg Oral tab [Active]; aspirin 81 mg Oral chew [Active]; carvedilol 3.125 mg hb Oral tab 2 times per day [Active]; hydrochlorothiazide 25 mg Oral tab [Active]; lisinopril 20 mg Oral tab [Active]; metformin 500 mg Oral TG24 [Active]; Prilosec Oral [Active]; simvastatin 20 mg Oral tab [Active]; - PMHx: 09:12 Diabetes - NIDDM; Hyperlipidemia; Hypertension; hb - PSHx: 09:12 colon cancer; hb - Immunization history:: Adult Immunizations up to date. - Social history:: Smoking status: Patient denies any tobacco usage or history of. ROS: 09:27 Constitutional: Negative for fever, chills, and weight loss, Eyes: Negative for injury, kdr pain, redness, and discharge, ENT: Negative for injury, pain, and discharge, Neck: Negative for injury, pain, and swelling, Cardiovascular: Negative for chest pain, palpitations, and edema, Respiratory: Negative for shortness of breath, cough, wheezing, and pleuritic chest pain, Back: Negative for injury and pain, MS/Extremity: Negative for injury and deformity, Skin: Negative for injury, rash, and discoloration, Neuro: Negative for headache, weakness, numbness, tingling, and seizure activity. Psych: Negative for depression, anxiety, suicide ideation, homicidal ideation, and hallucinations, Allergy/Immunology: Negative for hives, rash, and allergies, Endocrine: Negative for neck swelling, polydipsia, polyuria, polyphagia, and marked weight changes, Hematologic/Lymphatic: Negative for swollen nodes, abnormal bleeding, and unusual bruising. 09:27 Abdomen/GI: Positive for abdominal pain, suprapubic pressure for a few days and feels like he can not . Exam: 09:27 Constitutional: This is a well developed, well nourished patient who is awake, alert, kdr and in no acute distress. Head/Face: Normocephalic, atraumatic. Eyes: Pupils equal round and reactive to light, extra-ocular motions intact. Lids and lashes normal. Conjunctiva and sclera are non-icteric and not injected. Cornea within normal limits. Periorbital areas with no swelling, redness, or edema. Neck: Trachea midline, no thyromegaly or masses palpated, and no cervical lymphadenopathy. Supple, full range of motion without nuchal rigidity, or vertebral point tenderness. No Meningismus. Chest/axilla: Normal chest wall appearance and motion. Nontender with no deformity. No lesions are appreciated. Cardiovascular: Regular rate and rhythm with a normal S1 and S2. No gallops, murmurs, or rubs. Normal PMI, no JVD. No pulse deficits. Respiratory: Lungs have equal breath sounds bilaterally, clear to auscultation and percussion. No rales, rhonchi or wheezes noted. No increased work of breathing, no retractions or nasal flaring. Back: No spinal tenderness. No costovertebral tenderness. Full range of motion. Skin: Warm, dry with normal turgor. Normal color with no rashes, no lesions, and no evidence of cellulitis. MS/ Extremity: Pulses equal, no cyanosis. Neurovascular intact. Full, normal range of motion. Neuro: Awake and alert, GCS 15, oriented to person, place, time, and situation. Cranial nerves II-XII grossly intact. Motor strength 5/5 in all extremities. Sensory grossly intact. Cerebellar exam normal. Normal gait. Psych: Awake, alert, with orientation to person, place and time. Behavior, mood, and affect are within normal limits. 09:27 Abdomen/GI: Inspection: abdomen appears normal, obese Bowel sounds: active, all quadrants, Palpation: soft, mild abdominal tenderness, in the suprapubic area, mass, is not appreciated, rebound tenderness, is not appreciated. Vital Signs: 09:07 BP 167 / 84; Pulse 82; Resp 16; Pulse Ox 97% on R/A; Pain 2/10; hb 09:18 Temp 98.5(O); Weight 91.63 kg; Height 6 ft. 0 in. (182.88 cm); Pain 2/10; dh3 09:58 BP 156 / 70; Pulse 67; Resp 16; Pulse Ox 98% on R/A; hb 10:45 BP 167 / 71; Pulse 56; Resp 16; Pulse Ox 100% on R/A; hb 11:45 BP 162 / 70; Pulse 57; Resp 15; Pulse Ox 99% on R/A; hb 12:30 BP 148 / 68; Pulse 59; Resp 16; Pulse Ox 98% on R/A; hb 09:18 Body Mass Index 27.40 (91.63 kg, 182.88 cm) dh3 MDM: 12:28 Patient medically screened. kdr 15:34 Data reviewed: vital signs, lab test result(s). Counseling: I had a detailed discussion kdr with the patient and/or guardian regarding: the historical points, exam findings, and any diagnostic results supporting the discharge/admit diagnosis, lab results, radiology results, the need for outpatient follow up. 09/29 09:19 Order name: Urine Culture [facility] 09/29 09:19 Order name: CBC with Diff; Complete Time: 10:20 kdr 09/29 09:19 Order name: Chem 7; Complete Time: 10:20 kdr 09/29 10:33 Order name: Urine Dipstick--Ancillary (enter results); Complete Time: 12:26 eb 09/29 11:36 Order name: CT Abd/Pelvis - IV Contrast Only; Complete Time: 12:26 kdr 09/29 09:19 Order name: Urine Dipstick-Ancillary (obtain specimen); Complete Time: 10:45 kdr Administered Medications: 12:47 Drug: Flagyl 500 mg Route: PO; hb 12:48 Follow up: Response: Medication administered at discharge. hb 12:47 Drug: Cipro 500 mg Route: PO; hb 12:48 Follow up: Response: Medication administered at discharge. hb Disposition: 09/29/20 12:28 Discharged to Home. Impression: Sigmoid Diverticulitis. - Condition is Stable. - Discharge Instructions: Diverticulitis, Barb-au-Hggj, Abdominal Pain, Adult, [id number]. - Prescriptions for Flagyl 500 mg Oral Tablet - take 1 tablet by ORAL route every 6 hours for 10 days; 40 tablet. Cipro 500 mg Oral Tablet - take 1 tablet by ORAL route every 12 hours for 10 days; 20 tablet. - Medication Reconciliation Form, Thank You Letter, Antibiotic Education form. - Follow up: Adry Acevedo; When: 2 - 3 days; Reason: If symptoms return, Further diagnostic work-up, Recheck today's complaints, Continuance of care, Re-evaluation by your physician. - Problem is new. - Symptoms have improved. Signatures: Dispatcher [employer] EDMS Lyle Buckley MD MD [facility] Shell Ghosh RN RN Corrections: (The following items were deleted from the chart) 12:51 12:28 09/29/2020 12:28 Discharged to Home. Impression: Sigmoid Diverticulitis. hb Condition is Stable. Forms are Medication Reconciliation Form, Thank You Letter, Antibiotic Education, Prescription Opioid Use. Follow up: Adry Acevedo; When: 2 - 3 days; Reason: If symptoms return, Further diagnostic work-up, Recheck today's complaints, Continuance of care, Re-evaluation by your physician. Problem is new. Symptoms have improved. kdr
--- NOTE | 2020-09-29 12:28 | ER ---
Nurse's Notes [facility] Name: Lauro Masters Age: 80 yrs Sex: Male : 1940 Arrival Date: 09/29/2020 Time: 09:02 Bed 5 Private MD: Adry Acevedo Diagnosis: Sigmoid Diverticulitis Presentation: 09/29 09:07 Chief complaint: Difficulty urinating and suprapubic pressure x 2 days. Coronavirus hb screen: At this time, the client does not indicate any symptoms associated with coronavirus-19. Ebola Screen: No symptoms or risks identified at this time. Initial Sepsis Screen: Does the patient meet any 2 criteria? No. Patient's initial sepsis screen is negative. Does the patient have a suspected source of infection? No. Patient's initial sepsis screen is negative. Risk Assessment: Do you want to hurt yourself or someone else? Patient reports no desire to harm self or others. Onset of symptoms was September 28, 2020. 09:07 Method Of Arrival: Ambulatory hb 09:07 Acuity: KATHLEEN 3 hb Triage Assessment: 09:13 General: Appears in no apparent distress. Behavior is calm, cooperative. Pain: Pain hb currently is 2 out of 10 on a pain scale. EENT: No signs and/or symptoms were reported regarding the EENT system. Neuro: Level of Consciousness is awake, alert, obeys commands, Oriented to person, place, time, situation. Cardiovascular: Patient's skin is warm and dry. Respiratory: Respiratory effort is even, unlabored, Respiratory pattern is regular, symmetrical. GI: No signs and/or symptoms were reported involving the gastrointestinal system. : Reports urinary retention, suprapubic pain. Derm: Skin is pink, warm \T\ dry. Musculoskeletal: No signs and/or symptoms reported regarding the musculoskeletal system. Historical: - Allergies: 09:12 No Known Allergies; hb - Home Meds: 09:12 Actos 30 mg Oral tab [Active]; aspirin 81 mg Oral chew [Active]; carvedilol 3.125 mg hb Oral tab 2 times per day [Active]; hydrochlorothiazide 25 mg Oral tab [Active]; lisinopril 20 mg Oral tab [Active]; metformin 500 mg Oral TG24 [Active]; Prilosec Oral [Active]; simvastatin 20 mg Oral tab [Active]; - PMHx: 09:12 Diabetes - NIDDM; Hyperlipidemia; Hypertension; hb - PSHx: 09:12 colon cancer; hb - Immunization history:: Adult Immunizations up to date. - Social history:: Smoking status: Patient denies any tobacco usage or history of. Screenin:13 Abuse screen: Denies threats or abuse. Denies injuries from another. Nutritional hb screening: No deficits noted. Tuberculosis screening: No symptoms or risk factors identified. Fall Risk None identified. Assessment: 09:14 General: see triage . hb 09:58 Reassessment: Patient appears in no apparent distress at this time. Patient and/or hb family updated on plan of care and expected duration. Pain level reassessed. Patient is alert, oriented x 3, equal unlabored respirations, skin warm/dry/pink. 10:45 Reassessment: Patient appears in no apparent distress at this time. Patient and/or hb family updated on plan of care and expected duration. Pain level reassessed. Patient is alert, oriented x 3, equal unlabored respirations, skin warm/dry/pink. 11:45 Reassessment: Patient appears in no apparent distress at this time. Patient and/or hb family updated on plan of care and expected duration. Pain level reassessed. Patient is alert, oriented x 3, equal unlabored respirations, skin warm/dry/pink. 12:39 Reassessment: Patient appears in no apparent distress at this time. Patient and/or hb family updated on plan of care and expected duration. Pain level reassessed. Patient is alert, oriented x 3, equal unlabored respirations, skin warm/dry/pink. Vital Signs: 09:07 BP 167 / 84; Pulse 82; Resp 16; Pulse Ox 97% on R/A; Pain 2/10; hb 09:18 Temp 98.5(O); Weight 91.63 kg; Height 6 ft. 0 in. (182.88 cm); Pain 2/10; dh3 09:58 BP 156 / 70; Pulse 67; Resp 16; Pulse Ox 98% on R/A; hb 10:45 BP 167 / 71; Pulse 56; Resp 16; Pulse Ox 100% on R/A; hb 11:45 BP 162 / 70; Pulse 57; Resp 15; Pulse Ox 99% on R/A; hb 12:30 BP 148 / 68; Pulse 59; Resp 16; Pulse Ox 98% on R/A; hb 09:18 Body Mass Index 27.40 (91.63 kg, 182.88 cm) [facility] ED Course: 09:02 Patient arrived in ED. mr 09:03 Peter Acevedoa is Private Physician. mr 09:06 Lyle Buckley MD is Attending Physician. kdr 09:11 Triage completed. hb 09:12 Arm band placed on. hb 09:13 Patient has correct armband on for positive identification. Bed in low position. Call hb light in reach. 09:39 Initial lab(s) drawn, by me, sent to lab. Inserted saline lock: 20 gauge in right 3 forearm, using aseptic technique. Blood collected. 09:58 Shell Ghosh, RN is Primary Nurse. hb 12:06 CT Abd/Pelvis - IV Contrast Only In Process Unspecified. EDMS 12:27 Adry Acevedo is Referral Physician. kdr 12:49 No provider procedures requiring assistance completed. IV discontinued, intact, hb bleeding controlled, No redness/swelling at site. Administered Medications: 12:47 Drug: Flagyl 500 mg Route: PO; hb 12:48 Follow up: Response: Medication administered at discharge. hb 12:47 Drug: Cipro 500 mg Route: PO; hb 12:48 Follow up: Response: Medication administered at discharge. hb Outcome: 12:28 Discharge ordered by . kdr 12:49 Discharged to home ambulatory. hb 12:49 Condition: stable 12:49 Discharge instructions given to patient, Instructed on discharge instructions, follow up and referral plans. medication usage, Demonstrated understanding of instructions, follow-up care, medications, Prescriptions given X 2. 12:51 Patient left the ED. hb Signatures: Dispatcher [employer] EDWV Lyle Buckley MD MD [facility] [place] Shell Ghosh, RN RN Laila Cr [facility]
[2020-09-29] MEDS ORDERED: CIPROFLOXACIN HCL 500 MG TAB ONE (12:55)
[2020-09-29] MEDS ORDERED: metroNIDAZOLE 500 MG TABLET ONE (12:55)
[2020-09-29 13:13] VITALS: TEMP 98.5
[2020-09-29 13:20] VITALS: BP 148/68; O2SAT 98
== END 2020-09-29 12:51 | disposition home or self-care (01) ==
LOC: ER 08:59
DX: K57.32 Diverticulitis of large intestine without perforation or abscess without bleeding (principal); I10 Essential (primary) hypertension; E78.5 Hyperlipidemia, unspecified; E11.9 Type 2 diabetes mellitus without complications; Z79.82 Long term (current) use of aspirin; Z85.038 Personal history of other malignant neoplasm of large intestine
CPT/HCPCS: 87088; 85025; 87086; 80048; 36415; 81003; 74177; 99284; Q9967

== ENCOUNTER 2023-01-13 07:42 | Emergency (ER) | payer OTHER ==
--- OUTSIDE RECORDS SUMMARY | 2023-01-13 07:46 | XMS REPORT | Continuity of Care Document ---
:1940 [facility] Organization [facility] t Address [address] [place] [address] Care Team Providers Name Role Phone Adry Acevedo Attending Clinician Unavailable Payers Payer Name Policy Type Policy Number Effective Date Expiration Date S lauren MEDICARE MB [id number] 2009 [facility] NOVITAS 00:00:00 [facility] [employer]ERS LIFE C1 [id number] [facility] [employer] C1 [id number] [facility] MEDICARE MB [id number] 2009 [facility] NOVITAS 00:00:[address] - [facility] MEDICARE MB [id number] 2009 [facility] NOVITAS 00:00:00 [facility] [employer] LIFE C1 [id number] [facility] [employer] C1 [id number] [facility] MEDICARE MB [id number] 2009 [facility] NOVITAS 00:00:00 [facility] Problems Condition Condition Condition Status Onset Resolution Last Treating Co mments Source Name Details Category Date Date Treatment Clinician Date [id number] Skin Problem Common lesion of Spirit hand [facility] [id number] Incomplete Problem Co mmon emptying Spirit of bladder [facility] [id number] 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 - [facility] [id number] HTN, goal Problem Comm on below [facility] 140/80 - [facility] Elevated Elevated Problem Commo n PSA PSA Spirit [facility] [id number] Pure Problem Common hyperchole [facility] sterolemia - [facility] [id number] Paroxysmal Problem Co mmon atrial Spirit fibrillati - [facility] on [facility] Benign Benign Problem Common essential essential Spir it hypertensi hypertensi - [facility] on on [facility] [id number] History of Problem Co mmon colon Spirit cancer - [facility] [id number] Sigmoid Problem Commo n diverticul [facility] itis - [facility] Gastroesop Gastroesop Problem C ommon hageal hageal [facility] reflux reflux - [facility] disease disease [facility] [id number] Post Problem Common herpetic [facility] neuralgia - [facility] [id number] +5th digit Problem Co mmon eff [facility] 08/24/20*Ch - [facility] 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 Social History Social Habit Start Date Stop Date Quantity Comments Source History of Tobacco Use Co mmon [facility] Sex Assigned At Com [facility] Smoking Status Start Date Stop Date Source Never Smoker [facility] Medications Ordered Filled Start Stop Current Ordering Indication Dosage Frequency Signature Comments Components Source Medication Medication Date Date Medication? Clinician (SIG) Name Name Flomax 0.4 Flomax 0.4 2021-11- No 1{capsu QD Flomax 0.4 MG MG 0-12 05-10 le} MG 00:00: :00 00 :00 Flomax 0.4 Flomax 0.4 2021-11- No 1{capsu QD Flomax 0.4 MG MG 0-12 05-10 le} MG 00:00: :00 00 :00 Flomax 0.4 Flomax 0.4 2021-11- No 1{capsu QD Flomax 0.4 MG MG 0-12 05-10 le} MG 00:00: :00 00 :00 Flomax 0.4 Flomax 0.4 2021-11- No 1{capsu QD Flomax 0.4 MG MG 0-12 05-10 le} MG 00:00: 00:00 00 :00 Flomax 0.4 Flomax 0.4 2021-11- No 1{capsu QD Flomax 0.4 MG MG 0-12 05-10 le} MG 00:00: 00:00 00 :00 Flomax 0.4 Flomax 0.4 2021-11- No 1{capsu QD Flomax 0.4 MG MG 0-12 05-10 le} MG 00:00: 00:00 00 :00 Gabapentin Gabapentin 2018- Yes Josie 1 capsule [facility] 1-08 [place] [facility] 00:00: - [facility] 00 [facility] Acyclovir Acyclovir Yes Josie 1 tablet [facility] 9-03 [place] [facility] 00:00: - [facility] 00 [facility] Lisinopril Lisinopril Yes Josie 1 tablet [facility] 8-20 [place] [facility] 00:00: - [facility] 00 [facility] Pioglitazon Pioglitazon Yes Josie 1 tablet Common e HCl e HCl [place] [facility] Simvastatin Simvastatin Yes Josie TAKE 1 Common [place] TABLET BY Spirit MOUTH ONCE - CHI A DAY [facility] Aspirin Aspirin Yes Josie as Common [place] directed [facility] Lisinopril Lisinopril Yes Josie TAKE 1 Common [place] TABLET BY Spirit MOUTH - [facility] EVERY DAY [facility] Carvedilol Carvedilol Yes Josie take 1 Common [place] tablet by Spirit mouth - [facility] twice [facility] Simvastatin Simvastatin Yes Josie TAKE 1 Common [place] TABLET BY Spirit MOUTH ONCE - [facility] A DAY [facility] Aspirin 81 Aspirin 81 No Aspirin 81 MG MG MG Carvedilol Carvedilol No Carvedilol 3.125 MG 3.125 MG 3.125 MG Simvastatin Simvastatin No 1{table QD Simvastati 20 20 t_in_th n 20 e_eveni ng} Aspirin 81 Aspirin 81 No Aspirin 81 MG MG MG Lisinopril Lisinopril No Lisinopril 2.5 MG 2.5 MG 2.5 MG Pioglitazon Pioglitazon No Pioglitazo e HCl 30 MG e HCl 30 MG ne HCl 30 MG Pioglitazon Pioglitazon No Pioglitazo e HCl 30 MG e HCl 30 MG ne HCl 30 MG Aspirin 81 Aspirin 81 No Aspirin 81 MG MG MG Carvedilol Carvedilol No Carvedilol 3.125 MG 3.125 MG 3.125 MG Lisinopril Lisinopril No Lisinopril 2.5 MG 2.5 MG 2.5 MG Simvastatin Simvastatin No Simvastati 20 MG 20 MG n 20 MG Carvedilol Carvedilol No Carvedilol 3.125 MG 3.125 MG 3.125 MG Aspirin 81 Aspirin 81 No Aspirin 81 MG MG MG Simvastatin Simvastatin No Simvastati 20 MG 20 MG n 20 MG Lisinopril Lisinopril No Lisinopril 2.5 MG 2.5 MG 2.5 MG Pioglitazon Pioglitazon No Pioglitazo e HCl 30 MG e HCl 30 MG ne HCl 30 MG Pioglitazon Pioglitazon No Pioglitazo e HCl 30 MG e HCl 30 MG ne HCl 30 MG Lisinopril Lisinopril No Lisinopril 2.5 MG 2.5 MG 2.5 MG Carvedilol Carvedilol No Carvedilol 3.125 MG 3.125 MG 3.125 MG Aspirin 81 Aspirin 81 No Aspirin 81 MG MG MG Simvastatin Simvastatin No Simvastati 20 MG 20 MG n 20 MG Aspirin 81 Aspirin 81 No Aspirin 81 MG MG MG Lisinopril Lisinopril No Lisinopril 2.5 MG 2.5 MG 2.5 MG Pioglitazon Pioglitazon No Pioglitazo e HCl 30 MG e HCl 30 MG ne HCl 30 MG Simvastatin Simvastatin No QD Simvastati 20 MG 20 MG n 20 MG Carvedilol Carvedilol No Carvedilol 3.125 MG 3.125 MG 3.125 MG Simvastatin Simvastatin No QD Simvastati 20 MG 20 MG n 20 MG Lisinopril Lisinopril No Lisinopril 2.5 MG 2.5 MG 2.5 MG Pioglitazon Pioglitazon No Pioglitazo e HCl 30 MG e HCl 30 MG ne HCl 30 MG Aspirin 81 Aspirin 81 No Aspirin 81 MG MG MG Carvedilol Carvedilol No Carvedilol 3.125 MG 3.125 MG 3.125 MG Simvastatin Simvastatin No QD Simvastati 20 MG 20 MG n 20 MG Carvedilol Carvedilol No Carvedilol 3.125 MG 3.125 MG 3.125 MG Aspirin 81 Aspirin 81 No Aspirin 81 MG MG MG Lisinopril Lisinopril No Lisinopril 2.5 MG 2.5 MG 2.5 MG Pioglitazon Pioglitazon No Pioglitazo e HCl 30 MG e HCl 30 MG ne HCl 30 MG Carvedilol Carvedilol No Carvedilol 3.125 MG 3.125 MG 3.125 MG Lisinopril Lisinopril No Lisinopril 2.5 MG 2.5 MG 2.5 MG Pioglitazon Pioglitazon No Pioglitazo e HCl 30 MG e HCl 30 MG ne HCl 30 MG Aspirin 81 Aspirin 81 No Aspirin 81 MG MG MG Simvastatin Simvastatin No QD Simvastati 20 MG 20 MG n 20 MG Pioglitazon Pioglitazon No Pioglitazo e HCl 30 MG e HCl 30 MG ne HCl 30 MG Carvedilol Carvedilol No Carvedilol 3.125 MG 3.125 MG 3.125 MG Simvastatin Simvastatin No QD Simvastati 20 MG 20 MG n 20 MG Aspirin 81 Aspirin 81 No Aspirin 81 MG MG MG Lisinopril Lisinopril No Lisinopril 2.5 MG 2.5 MG 2.5 MG Aspirin 81 Aspirin 81 No Aspirin 81 MG MG MG Pioglitazon Pioglitazon No Pioglitazo e HCl 30 MG e HCl 30 MG ne HCl 30 MG Simvastatin Simvastatin No QD Simvastati 40 MG 40 MG n 40 MG Lisinopril Lisinopril No Lisinopril 2.5 MG 2.5 MG 2.5 MG Carvedilol Carvedilol No Carvedilol 3.125 MG 3.125 MG 3.125 MG Aspirin 81 Aspirin 81 No Aspirin 81 MG MG MG Simvastatin Simvastatin No QD Simvastati 20 MG 20 MG n 20 MG Pioglitazon Pioglitazon No Pioglitazo e HCl 30 MG e HCl 30 MG ne HCl 30 MG Carvedilol Carvedilol No Carvedilol 3.125 MG 3.125 MG 3.125 MG Lisinopril Lisinopril No Lisinopril 2.5 MG 2.5 MG 2.5 MG Aspirin 81 Aspirin 81 No Aspirin 81 MG MG MG Simvastatin Simvastatin No QD Simvastati 20 MG 20 MG n 20 MG Pioglitazon Pioglitazon No Pioglitazo e HCl 30 MG e HCl 30 MG ne HCl 30 MG Carvedilol Carvedilol No Carvedilol 3.125 MG 3.125 MG 3.125 MG Lisinopril Lisinopril No Lisinopril 2.5 MG 2.5 MG 2.5 MG Pioglitazon Pioglitazon No Pioglitazo e HCl 30 MG e HCl 30 MG ne HCl 30 MG Aspirin 81 Aspirin 81 No Aspirin 81 MG MG MG Lisinopril Lisinopril No 1{table QD Lisinopril 2.5 MG 2.5 MG t} 2.5 MG Simvastatin Simvastatin No Simvastati 20 20 n 20 Carvedilol Carvedilol No BID Carvedilol 3.125 MG 3.125 MG 3.125 MG Pioglitazon Pioglitazon No Pioglitazo e HCl 30 MG e HCl 30 MG ne HCl 30 MG Aspirin 81 Aspirin 81 No Aspirin 81 MG MG MG Lisinopril Lisinopril No 1{table QD Lisinopril 2.5 MG 2.5 MG t} 2.5 MG Simvastatin Simvastatin No Simvastati 20 20 n 20 Carvedilol Carvedilol No BID Carvedilol 3.125 MG 3.125 MG 3.125 MG Lisinopril Lisinopril No 1{table QD Lisinopril 2.5 MG 2.5 MG t} 2.5 MG Carvedilol Carvedilol No Carvedilol 3.125 MG 3.125 MG 3.125 MG Aspirin 81 Aspirin 81 No Aspirin 81 MG MG MG Pioglitazon Pioglitazon No Pioglitazo e HCl 30 MG e HCl 30 MG ne HCl 30 MG Simvastatin Simvastatin No 1{table QD Simvastati 20 20 t_in_th n 20 e_eveni ng} Carvedilol Carvedilol No Carvedilol 3.125 MG 3.125 MG 3.125 MG Simvastatin Simvastatin No 1{table QD Simvastati 20 20 t_in_th n 20 e_eveni ng} Lisinopril Lisinopril No 1{table QD Lisinopril 2.5 MG 2.5 MG t} 2.5 MG Pioglitazon Pioglitazon No Pioglitazo e HCl 30 MG e HCl 30 MG ne HCl 30 MG Immunizations Ordered Immunization Filled Immunization Date Status Commen ts Source Name Name Pneumovax (PPSV23) Pneumovax (PPSV23) 2022-12-30 Completed [facility] 14:23:00 [facility] Pneumovax (PPSV23) Pneumovax (PPSV23) 2022-12-30 Completed [facility] 14:23:00 [facility] [address] Completed [facility] Vaccine (Low Dose Vaccine (Low Dose 16:28:00 - [facility] [facility]22-[facility]-16 Completed [facility] Vaccine (Low Dose Vaccine (Low Dose 16:28:00 - [facility] Bo[facility] Booster) [facility] COVID[address] [facility] 2022-09-16 Completed [facility] Vaccine (Low Dose Vaccine (Low Dose 16:28:00 - [facility] [address] [facility] 2022-09-16 Completed [facility] Vaccine (Low Dose Vaccine (Low Dose 16:28:00 - [facility] Booster[facility] COVID[address] [facility] 2022-09-16 Completed [facility] Vaccine (Low Dose Vaccine (Low Dose 16:28:00 - [facility] Booster) [facility] FLUZONE HIGH DOSE FLUZONE HIGH DOSE 2022-09-16 Completed [facility] OVER 65 OVER 65 16:27:00 [facility] FLUZONE HIGH DOSE FLUZONE HIGH DOSE 2022-09-16 Completed [facility] OVER 65 OVER 65 16:27:00 [facility] FLUZONE HIGH DOSE FLUZONE HIGH DOSE 2022-09-16 Completed [facility] OVER 65 OVER 65 16:27:00 [facility] FLUZONE HIGH DOSE FLUZONE HIGH DOSE 2022-09-16 Completed [facility] OVER 65 OVER 65 16:27:00 [facility] FLUZONE HIGH DOSE FLUZONE HIGH DOSE 2022-09-16 Completed [facility] OVER 65 OVER 65 16:27:00 [facility] Pfizer COVID-19 Pfizer COVID-19 2021-08-30 Completed [facility] Vaccine Vaccine 11:27:00 [facility] Pfizer COVID-19 Pfizer COVID-19 2021-08-30 Completed [facility] Vaccine Vaccine 11:27:00 [facility] Pfizer COVID-19 Pfizer COVID-19 2021-08-30 Completed [facility] Vaccine Vaccine 11:27:00 [facility] Pfizer COVID-19 Pfizer COVID-19 2021-08-30 Completed [facility] Vaccine Vaccine 11:27:00 [facility] Pfizer COVID-19 Pfizer COVID-19 2021-08-30 Completed [facility] Vaccine Vaccine 11:27:00 - [facility] Pfizer COVID-19 Pfizer COVID-19 2021-08-30 Completed [facility] Vaccine Vaccine 11:27:00 [facility] Pfizer COVID-19 Pfizer COVID-19 2021-08-30 Completed [facility] Vaccine Vaccine 11:27:00 [facility] Pfizer COVID-19 Pfizer COVID-19 2021-08-30 Completed [facility] Vaccine Vaccine 11:27:00 [facility] Pfizer COVID-19 Pfizer COVID-19 2021-08-30 Completed [facility] Vaccine Vaccine 11:27:00 [facility] Pfizer COVID-19 Pfizer COVID-19 2021-08-30 Completed [facility] Vaccine Vaccine 11:27:00 [facility] Pfizer COVID-19 Pfizer COVID-19 2021-08-30 Completed [facility] Vaccine Vaccine 11:27:00 [facility] Pfizer COVID-19 Pfizer COVID-19 2021-08-30 Completed [facility] Vaccine Vaccine 11:27:00 [facility] Pfizer COVID-19 Pfizer COVID-19 2021-08-30 Completed [facility] Vaccine Vaccine 11:27:00 - [facility] Pfizer COVID-19 Pfizer COVID-19 2021-08-30 Completed [facility] Vaccine Vaccine 11:27:00 - [facility] Pfizer COVID-19 Pfizer COVID-19 2021-08-30 Completed [facility] Vaccine Vaccine 11:27:00 [facility] Pfizer COVID-19 Pfizer COVID-19 2021-08-30 Completed [facility] Vaccine Vaccine 11:27:00 - [facility] Pfizer COVID-19 Pfizer COVID-19 2021-02-15 Completed [facility] Vaccine Vaccine 09:30:00 [facility] Pfizer COVID-19 Pfizer COVID-19 2021-02-15 Completed [facility] Vaccine Vaccine 09:30:00 [facility] Pfizer COVID-19 Pfizer COVID-19 2021-02-15 Completed [facility] Vaccine Vaccine 09:30:00 [facility] Pfizer COVID-19 Pfizer COVID-19 2021-02-15 Completed [facility] Vaccine Vaccine 09:30:00 [facility] Pfizer COVID-19 Pfizer COVID-19 2021-02-15 Completed [facility] Vaccine Vaccine 09:30:00 [facility] Pfizer COVID-19 Pfizer COVID-19 2021-02-15 Completed [facility] Vaccine Vaccine 09:30:00 [facility] Pfizer COVID-19 Pfizer COVID-19 2021-02-15 Completed [facility] Vaccine Vaccine 09:30:00 [facility] Pfizer COVID-19 Pfizer COVID-19 2021-02-15 Completed [facility] Vaccine Vaccine 09:30:00 [facility] Pfizer COVID-19 Pfizer COVID-19 2021-02-15 Completed [facility] Vaccine Vaccine 09:30:00 [facility] Pfizer COVID-19 Pfizer COVID-19 2021-02-15 Completed [facility] Vaccine Vaccine 09:30:00 [facility] Pfizer COVID-19 Pfizer COVID-19 2021-02-15 Completed [facility] Vaccine Vaccine 09:30:00 [facility] Pfizer COVID-19 Pfizer COVID-19 2021-02-15 Completed [facility] Vaccine Vaccine 09:30:00 - [facility] Pfizer COVID-19 Pfizer COVID-19 2021-02-15 Completed [facility] Vaccine Vaccine 09:30:00 [facility] Pfizer COVID-19 Pfizer COVID-19 2021-02-15 Completed [facility] Vaccine Vaccine 09:30:00 [facility] Pfizer COVID-19 Pfizer COVID-19 2021-02-15 Completed [facility] Vaccine Vaccine 09:30:00 - [facility] Pfizer COVID-19 Pfizer COVID-19 2021-02-15 Completed [facility] Vaccine Vaccine 09:30:00 [facility] Pfizer COVID-19 Pfizer COVID-19 2021-01-25 Completed [facility] Vaccine Vaccine 09:17:00 [facility] Pfizer COVID-19 Pfizer COVID-19 2021-01-25 Completed [facility] Vaccine Vaccine 09:17:00 - [facility] Pfizer COVID-19 Pfizer COVID-19 2021-01-25 Completed [facility] Vaccine Vaccine 09:17:00 [facility] Pfizer COVID-19 Pfizer COVID-19 2021-01-25 Completed [facility] Vaccine Vaccine 09:17:00 [facility] Pfizer COVID-19 Pfizer COVID-19 2021-01-25 Completed [facility] Vaccine Vaccine 09:17:00 [facility] Pfizer COVID-19 Pfizer COVID-19 2021-01-25 Completed [facility] Vaccine Vaccine 09:17:00 [facility] Pfizer COVID-19 Pfizer COVID-19 2021-01-25 Completed [facility] Vaccine Vaccine 09:17:00 [facility] Pfizer COVID-19 Pfizer COVID-19 2021-01-25 Completed [facility] Vaccine Vaccine 09:17:00 [facility] Pfizer COVID-19 Pfizer COVID-19 2021-01-25 Completed [facility] Vaccine Vaccine 09:17:00 [facility] Pfizer COVID-19 Pfizer COVID-19 2021-01-25 Completed [facility] Vaccine Vaccine 09:17:00 - [facility] Pfizer COVID-19 Pfizer COVID-19 2021-01-25 Completed [facility] Vaccine Vaccine 09:17:00 - [facility] Pfizer COVID-19 Pfizer COVID-19 2021-01-25 Completed [facility] Vaccine Vaccine 09:17:00 - [facility] Pfizer COVID-19 Pfizer COVID-19 2021-01-25 Completed [facility] Vaccine Vaccine 09:17:00 - [facility] Pfizer COVID-19 Pfizer COVID-19 2021-01-25 Completed [facility] Vaccine Vaccine 09:17:00 - [facility] Pfizer COVID-19 Pfizer COVID-19 2021-01-25 Completed [facility] Vaccine Vaccine 09:17:00 - [facility] Pfizer COVID-19 Pfizer COVID-19 2021-01-25 Completed [facility] Vaccine Vaccine 09:17:00 - [facility] FLUZONE HIGH DOSE FLUZONE HIGH DOSE 2020-09-27 Completed [facility] OVER 65 OVER 65 09:45:00 - [facility] FLUZONE HIGH DOSE FLUZONE HIGH DOSE 2020-09-27 Completed [facility] OVER 65 OVER 65 09:45:00 - [facility] FLUZONE HIGH DOSE FLUZONE HIGH DOSE 2020-09-27 Completed [facility] OVER 65 OVER 65 09:45:00 - [facility] FLUZONE HIGH DOSE FLUZONE HIGH DOSE 2020-09-27 Completed [facility] OVER 65 OVER 65 09:45:00 - [facility] FLUZONE HIGH DOSE FLUZONE HIGH DOSE 2020-09-27 Completed [facility] OVER 65 OVER 65 09:45:00 - [facility] FLUZONE HIGH DOSE FLUZONE HIGH DOSE 2020-09-27 Completed [facility] OVER 65 OVER 65 09:45:00 - [facility] FLUZONE HIGH DOSE FLUZONE HIGH DOSE 2020-09-27 Completed [facility] OVER 65 OVER 65 09:45:00 - [facility] FLUZONE HIGH DOSE FLUZONE HIGH DOSE 2020-09-27 Completed [facility] OVER 65 OVER 65 09:45:00 - [facility] FLUZONE HIGH DOSE FLUZONE HIGH DOSE 2020-09-27 Completed [facility] OVER 65 OVER 65 09:45:00 - [facility] FLUZONE HIGH DOSE FLUZONE HIGH DOSE 2020-09-27 Completed [facility] OVER 65 OVER 65 09:45:00 - [facility] FLUZONE HIGH DOSE FLUZONE HIGH DOSE 2020-09-27 Completed [facility] OVER 65 OVER 65 09:45:00 - [facility] FLUZONE HIGH DOSE FLUZONE HIGH DOSE 2020-09-27 Completed [facility] OVER 65 OVER 65 09:45:00 - [facility] FLUZONE HIGH DOSE FLUZONE HIGH DOSE 2020-09-27 Completed [facility] OVER 65 OVER 65 09:45:00 - [facility] FLUZONE HIGH DOSE FLUZONE HIGH DOSE 2020-09-27 Completed [facility] OVER 65 OVER 65 09:45:00 - [facility] FLUZONE HIGH DOSE FLUZONE HIGH DOSE 2020-09-27 Completed [facility] OVER 65 OVER 65 09:45:00 - [facility] FLUZONE HIGH DOSE FLUZONE HIGH DOSE 2020-09-27 Completed [facility] OVER 65 OVER 65 09:45:00 - [facility] Prevnar 13 (PCV13) Prevnar 13 (PCV13) 2020-08-24 Completed [facility] 11:26:00 - [facility] Prevnar 13 (PCV13) Prevnar 13 (PCV13) 2020-08-24 Completed [facility] 11:26:00 - [facility] Prevnar 13 (PCV13) Prevnar 13 (PCV13) 2020-08-24 Completed [facility] 11:26:00 - [facility] Prevnar 13 (PCV13) Prevnar 13 (PCV13) 2020-08-24 Completed [facility] 11:26:00 - [facility] Prevnar 13 (PCV13) Prevnar 13 (PCV13) 2020-08-24 Completed [facility] 11:26:00 - [facility] Prevnar 13 (PCV13) Prevnar 13 (PCV13) 2020-08-24 Completed [facility] 11:26:00 [facility] Prevnar 13 (PCV13) Prevnar 13 (PCV13) 2020-08-24 Completed [facility] 11:26:00 - [facility] Prevnar 13 (PCV13) Prevnar 13 (PCV13) 2020-08-24 Completed [facility] 11:26:00 - [facility] Prevnar 13 (PCV13) Prevnar 13 (PCV13) 2020-08-24 Completed [facility] 11:26:00 - [facility] Prevnar 13 (PCV13) Prevnar 13 (PCV13) 2020-08-24 Completed [facility] 11:26:00 [facility] Prevnar 13 (PCV13) Prevnar 13 (PCV13) 2020-08-24 Completed [facility] 11:26:00 - [facility] Prevnar 13 (PCV13) Prevnar 13 (PCV13) 2020-08-24 Completed [facility] 11:26:00 - [facility] Prevnar 13 (PCV13) Prevnar 13 (PCV13) 2020-08-24 Completed [facility] 11:26:00 - [facility] Prevnar 13 (PCV13) Prevnar 13 (PCV13) 2020-08-24 Completed [facility] 11:26:00 - [facility] Prevnar 13 (PCV13) Prevnar 13 (PCV13) 2020-08-24 Completed [facility] 11:26:00 - [facility] Prevnar 13 (PCV13) Prevnar 13 (PCV13) 2020-08-24 Completed [facility] 11:26:00 - [facility] Boostrix (Tdap) Boostrix (Tdap) 2018-08-24 Completed [facility] 11:26:00 [facility] Boostrix (Tdap) Boostrix (Tdap) 2018-08-24 Completed [facility] 11:26:00 [facility] Boostrix (Tdap) Boostrix (Tdap) 2018-08-24 Completed [facility] 11:26:00 [facility] Boostrix (Tdap) Boostrix (Tdap) 2018-08-24 Completed [facility] 11:26:00 [facility] Boostrix (Tdap) Boostrix (Tdap) 2018-08-24 Completed [facility] 11:26:00 [facility] Boostrix (Tdap) Boostrix (Tdap) 2018-08-24 Completed [facility] 11:26:00 [facility] Boostrix (Tdap) Boostrix (Tdap) 2018-08-24 Completed [facility] 11:26:00 [facility] Boostrix (Tdap) Boostrix (Tdap) 2018-08-24 Completed [facility] 11:26:00 [facility] Boostrix (Tdap) Boostrix (Tdap) 2018-08-24 Completed [facility] 11:26:00 [facility] Boostrix (Tdap) Boostrix (Tdap) 2018-08-24 Completed [facility] 11:26:00 [facility] Boostrix (Tdap) Boostrix (Tdap) 2018-08-24 Completed [facility] 11:26:00 [facility] Boostrix (Tdap) Boostrix (Tdap) 2018-08-24 Completed [facility] 11:26:00 [facility] Boostrix (Tdap) Boostrix (Tdap) 2018-08-24 Completed [facility] 11:26:00 [facility] Boostrix (Tdap) Boostrix (Tdap) 2018-08-24 Completed [facility] 11:26:00 [facility] Boostrix (Tdap) Boostrix (Tdap) 2018-08-24 Completed [facility] 11:26:00 [facility] Boostrix (Tdap) Boostrix (Tdap) 2018-08-24 Completed [facility] 11:26:00 [facility] Vital Signs Vital Name Observation Time Observation Value Comments Source height 2022-12-30 14:00:00 70 [in_i] [facility] weight 2022-12-30 14:00:00 206.2 [lb_av] [facility] temperature 2022-12-30 14:00:00 98.8 [degF] [facility] bmi 2022-12-30 14:00:00 29.58 kg/m2 [facility] oximetry 2022-12-30 14:00:00 97 % Common S pirit [facility] respiratory rate 2022-12-30 14:00:00 16 /min Comm on [facility] blood pressure 2022-12-30 14:00:00 138 mm[Hg] Common [facility] - systolic [facility] blood pressure 2022-12-30 14:00:00 70 mm[Hg] Common [facility] - diastolic [facility] height 2022-12-30 14:00:00 70 [in_i] Common [facility] weight 2022-12-30 14:00:00 206.2 [lb_av] [facility] temperature 2022-12-30 14:00:00 98.8 [degF] Common [facility] bmi 2022-12-30 14:00:00 29.58 kg/m2 [facility] oximetry 2022-12-30 14:00:00 97 % Common [facility] respiratory rate 2022-12-30 14:00:00 16 /min Comm on [facility] blood pressure 2022-12-30 14:00:00 138 mm[Hg] Common [facility] - systolic [facility] blood pressure 2022-12-30 14:00:00 70 mm[Hg] Common [facility] diastolic [facility] height 2022-11-07 11:45:00 70 [in_i] Common [facility] weight 2022-11-07 11:45:00 202.6 [lb_av] [facility] temperature 2022-11-07 11:45:00 98.4 [degF] Common [facility] bmi 2022-11-07 11:45:00 29.07 kg/m2 Common [facility] oximetry 2022-11-07 11:45:00 95 % [facility] respiratory rate 2022-11-07 11:45:00 16 /min Comm on [facility] blood pressure 2022-11-07 11:45:00 156 mm[Hg] Common [facility] - systolic [facility] blood pressure 2022-11-07 11:45:00 73 mm[Hg] Common [facility] - diastolic [facility] height 2022-09-04 11:30:00 70 [in_i] [facility] 2022-09-04 11:30:00 204.4 [lb_av] Common [facility] temperature 2022-09-04 11:30:00 98.7 [degF] Common S pirit [facility] bmi 2022-09-04 11:30:00 29.33 kg/m2 Common [facility] oximetry 2022-09-04 11:30:00 96 % [facility] respiratory rate 2022-09-04 11:30:00 16 /min Comm on [facility] blood pressure 2022-09-04 11:30:00 125 mm[Hg] Common [facility] - systolic [facility] blood pressure 2022-09-04 11:30:00 78 mm[Hg] Common [facility] - diastolic [facility] height 2022-06-27 09:40:00 70 [in_i] [facility] 2022-06-27 09:40:00 206.2 [lb_av] [facility] temperature 2022-06-27 09:40:00 97.5 [degF] Common S pirit [facility] bmi 2022-06-27 09:40:00 29.58 kg/m2 Common S p[facility] oximetry 2022-06-27 09:40:00 96 % [facility] rate 2022-06-27 09:40:00 18 /min Comm on [facility] blood pressure 2022-06-27 09:40:00 138 mm[Hg] Common [facility] - systolic [facility] blood pressure 2022-06-27 09:40:00 74 mm[Hg] [facility] height 2022-05-16 13:40:00 70 [in_i] Common [facility] weight 2022-05-16 13:40:00 204.8 [lb_av] Common [facility] temperature 2022-05-16 13:40:00 97.2 [degF] Common [facility] bmi 2022-05-16 13:40:00 29.38 kg/m2 Common [facility] oximetry 2022-05-16 13:40:00 97 % Common [facility] respiratory rate 2022-05-16 13:40:00 18 /min Comm on [facility] blood pressure 2022-05-16 13:40:00 136 mm[Hg] Common [facility] - systolic [facility] blood pressure 2022-05-16 13:40:00 76 mm[Hg] Common [facility] - diastolic [facility] height 2021-12-27 09:40:00 70 [in_i] Common [facility] weight 2021-12-27 09:40:00 206 [lb_av] Common [facility] temperature 2021-12-27 09:40:00 98.9 [degF] [facility] bmi 2021-12-27 09:40:00 29.55 kg/m2 [facility] oximetry 2021-12-27 09:40:00 97 % Common [facility] respiratory rate 2021-12-27 09:40:00 16 /min Comm on [facility] blood pressure 2021-12-27 09:40:00 136 mm[Hg] Common [facility] - systolic [facility] blood pressure 2021-12-27 09:40:00 63 mm[Hg] Common [facility] - diastolic [facility] height 2021-09-12 17:00:00 70 [in_i] Common [facility] weight 2021-09-12 17:00:00 201.0 [lb_av] [facility] bmi 2021-09-12 17:00:00 28.84 kg/m2 Common S pirit [facility] oximetry 2021-09-12 17:00:00 97 % Common [facility] Procedures This patient has no known procedures. Encounters Start End Encounter Admission Attending Care Care Encounter Source Date/Time Date/Time Type Type Clinicians Facility Department ID 2022-12-26 Outpatient Curtis, STDIAMONDLC STLMLC [id number] Common 09:16:00 Adry [id number] [facility] 2022-06-25 Outpatient Curtis, STDIAMONDLC STLMLC [id number] Common 11:05:00 Adry [id number] [facility] 2021-12-19 Outpatient Curtis, STLMLC STLMLC [id number] Common 14:03:06 Adry [id number] [facility] 2021-12-19 Outpatient Curtis, STLMLC STLMLC [id number] Common 12:29:06 Adry [id number] [facility] 2021-12-19 Outpatient Curtis, STDIAMONDLC STLMLC [id number] Common 12:06:08 Adry [id number] [facility] 2022-12-30 2022-12-30 OFFICE STLMLC STLMLC [id number] Co mmon 00:00:00 00:00:00 VISIT [facility] ESTAB PT - [facility] LEVEL 4 [facility] 2022-12-30 2022-12-30 SUB ANNUAL STLMLC STLMLC [id number] Common 00:00:00 00:00:00 MCR [facility] WELLNESS - [facility] VISIT [facility] 2022-12-18 2022-12-18 (TEL) STLMLC STLMLC [id number] Co mmon 00:00:00 00:00:00 [facility] 2022-11-07 2022-11-07 OFFICE STLMLC STLMLC [id number] Co mmon 00:00:00 00:00:00 VISIT EST Spir it PT LEVEL 3 - [facility] 2022-10-24 2022-10-24 (TEL) STLMLC STLMLC [id number] Co mmon 00:00:00 00:00:00 [facility] 2022-09-04 2022-09-04 OFFICE STLMLC STLMLC [id number] Co mmon 00:00:00 00:00:00 VISIT NEW Spir it PT LEVEL 3 [facility] 2022-06-27 2022-06-27 OFFICE STLMLC STLMLC [id number] Co mmon 00:00:00 00:00:00 VISIT [facility] PT - [facility]I LEVEL 4 [facility] 2022-06-20 2022-06-20 (TEL) STLMLC STLMLC [id number] Co mmon 00:00:00 00:00:00 [facility] 2022-05-16 2022-05-16 OFFICE STLMLC STLMLC [id number] Co mmon 00:00:00 00:00:00 VISIT EST Spir it PT LEVEL 3 [facility] 2022-04-29 2022-04-29 (TEL) STLMLC STLMLC [id number] Co mmon 00:00:00 00:00:00 [facility] 2022-03-21 2022-03-21 (TEL) STLMLC STLMLC [id number] Co mmon 00:00:00 00:00:00 [facility] 2021-12-27 2021-12-27 OFFICE STLMLC STLMLC [id number] Co mmon 00:00:00 00:00:00 VISIT [facility] PT [facility] LEVEL 4 [facility] 2021-09-26 2021-09-26 (TEL) STLMLC STLMLC [id number] Co mmon 00:00:00 00:00:00 [facility] 2021-09-25 2021-09-25 (TEL) STLMLC STLMLC [id number] Co mmon 00:00:00 00:00:00 [facility] 2021-09-12 2021-09-12 (TEL) STLMLC STLMLC [id number] Co mmon 00:00:00 00:00:00 [facility] 2021-09-12 2021-09-12 SUB ANNUAL STLMLC STLMLC [id number] Common 00:00:00 00:00:00 MCR [facility] - [facility] VISIT [facility] 2021-06-26 2021-06-26 Outpatient STLMLC STLMLC [id number] Common 00:00:00 00:00:00 [facility] 2021-06-22 2021-06-22 Outpatient STLMLC STLMLC [id number] Common 00:00:00 00:00:00 [facility] 2021-06-20 2021-06-20 Outpatient STLMLC STLMLC [id number] Common 00:00:00 00:00:00 [facility] 2021-05-25 2021-05-25 Outpatient STLMLC STLMLC [id number] Common 00:00:00 00:00:00 [facility] 2021-03-27 2021-03-27 Outpatient STLMLC STLMLC [id number] Common 00:00:00 00:00:00 [facility] 2021-02-08 2021-02-08 Outpatient STLMLC STLMLC [id number] Common 00:00:00 00:00:00 [facility] 2020-12-28 2020-12-28 Outpatient STLMLC STLMLC [id number] Common 00:00:00 00:00:00 [facility] 2020-11-27 2020-11-27 Outpatient STLMLC STLMLC [id number] Common 00:00:00 00:00:00 [facility] 2020-10-12 2020-10-12 Outpatient STLMLC STLMLC [id number] Common 00:00:00 00:00:00 [facility] 2020-09-27 2020-09-27 Outpatient STLMLC STLMLC [id number] Common 00:00:00 00:00:00 [facility] 2020-07-06 2020-07-06 [facility] [id number] Common 09:00:00 09:00:00 t Specialty/U Sp joann Specialty rology - [facility] /[facility] 2020-07-04 2020-07-04 [facility] [id number] Common 09:44:00 09:44:00 t Specialty/U Sp joann Specialty rology [facility] /[facility] 2020-04-05 2020-04-05 [facility] [id number] Common 09:00:00 09:00:00 t Specialty/U Sp joann Specialty rology - [facility] /[facility] 2020-03-30 2020-03-30 [facility] [id number] Common 16:10:00 16:10:[address] [facility] 2020-03-27 2020-03-27 [facility] [id number] Common 09:40:00 09:40:[address] [facility] 2020-02-10 2020-02-10 [facility] [id number] Common 09:55:00 09:55:[address] [facility] 2019-12-29 2019-12-29 [facility] [id number] Common 17:22:00 17:22:[address] [facility] 2019-12-28 2019-12-28 [facility] [id number] Common 09:40:00 09:40:[address] [facility] 2019-12-07 2019-12-07 [facility] [id number] Common 11:56:00 11:56:[address] [facility] 2019-11-05 2019-11-05 [facility] [id number] Common 10:21:00 10:21:[address] [facility] 2019-10-01 2019-10-01 [facility] [id number] Common 09:00:00 09:00:[address] [facility] 2019-09-27 2019-09-27 [facility] [id number] Common 09:00:00 09:00:[address] [facility] 2019-09-23 2019-09-23 [facility] [id number] Common 14:54:00 14:54:[address] [facility] 2019-08-16 2019-08-16 [facility] [id number] Common 09:30:00 09:30:[address] [facility] 2019-08-12 2019-08-12 [facility] [id number] Common 09:45:00 09:45:[address] [facility] 2019-08-03 2019-08-03 [facility] [id number] Common 11:55:00 11:55:[address] [facility] 2019-07-27 2019-07-27 [facility] [id number] Common 10:20:00 10:20:[address] [facility] 2019-07-20 2019-07-20 [facility] [id number] Common 10:00:00 10:00:[address] [facility] 2019-07-13 2019-07-13 [facility] [id number] Common 10:30:00 10:30:[address] [facility] 2018-07-13 2018-07-13 [facility] [id number] Common 09:45:00 09:45:[address] [facility] 2018-06-02 2018-06-02 [facility] [id number] Common 08:45:00 08:45:[address] [facility] 2018-04-21 2018-04-21 [facility] [id number] Common 09:00:00 09:00:[address] [facility] Results Test Description Test Time Test Comments Results Result Comments Source HEMOGLOBIN A1C 2021-12-27 00:00:00 Test Item Value Reference Range Interpretation Comme nts A1C (test code = 4548-4) 6.0
--- NOTE | 2023-01-13 08:58 | RAD REPORT ---
EXAM DESCRIPTION: Cale Single View01/13/2023 8:46 am CLINICAL HISTORY: Chest pain COMPARISON: 2018 FINDINGS: No rib fracture visualized on this limited exam. No significant pleural effusion. No pneumothorax. Several right lung nodules. At least some or present on the prior exam and are unchanged. These may r epresent granulomas. Follow-up chest series in 1 month recommended for re-evaluation Small calcified granuloma left lung. Heart is normal size
--- NOTE | 2023-01-13 09:05 | EDPHYS ---
Physician Documentation [facility] Name: Lauro Masters Age: 82 yrs Sex: Male : 1940 Arrival Date: 01/13/2023 Time: 07:46 Bed 11 Private MD: Adry Acevedo ED Physician Gustavo Lemus HPI: 01/13 08:07 This 82 yrs old Male presents to ER via Ambulatory with complaints of Fall Injury, kb Shoulder Injury. 08:07 Details of fall: The patient fell from an upright position, while walking. Onset: The kb symptoms/episode began/occurred last night. Associated injuries: The patient sustained injury to the chest, specifically the anterior aspect of right upper chest, pain with breathing, pain with movement, tenderness. Severity of symptoms: At their worst the symptoms were mild, moderate, in the emergency department the symptoms are unchanged. The patient has not experienced similar symptoms in the past. The patient has not recently seen a physician. Historical: - Allergies: 08:03 No Known Allergies; ss - PMHx: 08:03 Diabetes - NIDDM; Hyperlipidemia; Hypertension; Colon CA; ss - PSHx: 08:03 Colon resection; hernia repair; ss - Immunization history:: Client reports receiving the 2nd dose of the Covid vaccine. - Social history:: Smoking status: Patient denies any tobacco usage or history of. ROS: 08:05 Constitutional: Negative for fever, chills, and weight loss. kb 08:05 Cardiovascular: Positive for chest pain, with cough, with movement, of the anterior aspect of right upper chest. 08:05 All other systems are negative. Exam: 08:05 Constitutional: This is a well developed, well nourished patient who is awake, alert, kb and in no acute distress. Head/Face: Normocephalic, atraumatic. ENT: Moist Mucous membranes Cardiovascular: Regular rate and rhythm with a normal S1 and S2. No gallops, murmurs, or rubs. No pulse deficits. Respiratory: Respirations even and unlabored. No increased work of breathing. Talking in full sentences Skin: Warm, dry with normal turgor. Normal color. MS/ Extremity: Pulses equal, no cyanosis. Neurovascular intact. Full, normal range of motion. Neuro: Awake and alert, GCS 15, oriented to person, place, time, and situation. Moves all extremities. Normal gait. 08:05 Chest/axilla: Inspection: normal, Palpation: tenderness, that is mild, of the anterior aspect of right upper chest. Vital Signs: 08:02 BP 138 / 77; Pulse 73; Resp 18; Temp 98.0(O); Pulse Ox 99% on R/A; Weight 91.63 kg; ss Height 6 ft. 0 in. (182.88 cm); Pain 4/10; 08:02 Body Mass Index 27.40 (91.63 kg, 182.88 cm) ss MDM: 07:55 Patient medically screened. 08:04 Data reviewed: vital signs, nurses notes. 08:05 Differential diagnosis: contusion, fracture. ED course: Patient is a 82-year-old male kb who presents for pain to right upper chest. [facility] fell forward and hit right upper chest on bedpost. Reports pain is steady at about a 4 and increases with movement of right shoulder, deep inspiration or cough. On exam mild tenderness noted to right upper chest. Lungs clear throughout. Respirations even and unlabored. Will obtain chest x-ray to rule out rib fracture.. 09:02 Counseling: I had a detailed discussion with the patient and/or guardian regarding: the kb historical points, exam findings, and any diagnostic results supporting the discharge/admit diagnosis, radiology results, the need for outpatient follow up, a family practitioner, to return to the emergency department if symptoms worsen or persist or if there are any questions or concerns that arise at home. 09:05 External Records Reviewed: MARGIN TRIMMER aware reviewed. No prescriptions found. 01/13 08:03 Order name: Chest Single View XRAY 01/13 08:58 Order name: RAD; Complete Time: 09:02 EDMS Administered Medications: No medications were administered Disposition Summary: 01/13/23 09:05 Discharge Ordered Location: Home kb Condition: Stable kb Diagnosis - Fall on same level from slipping, tripping and stumbling with subsequent striking kb against object - Right upper chest wall pain kb Followup: kb - With: Emergency Department - When: As needed - Reason: Worsening of condition Followup: kb - With: Private Physician - When: 2 - 3 days - Reason: Recheck today's complaints, Continuance of care, Re-evaluation by your physician Discharge Instructions: - Discharge Summary Sheet kb - Chest Wall Pain, [id number] kb - Contusion, [id number] kb Forms: - Medication Reconciliation Form kb - Thank You Letter kb - Antibiotic Education kb - Prescription Opioid Use kb Prescriptions: - Tramadol 50 mg Oral Tablet - take 1 tablet by ORAL route every 8 hours as needed; 12 tablet; Refills: 0, kb Product Selection Permitted Signatures: Dispatcher [employer] Jessica Mejía, WASTE DUSTER-C WASTE DUSTER-Vida Guzmán, SAMANTHA RN ss
--- NOTE | 2023-01-13 09:05 | ER ---
Nurse's Notes [facility] Name: Lauro Masters Age: 82 yrs Sex: Male : 1940 Arrival Date: 01/13/2023 Time: 07:46 Bed 11 Private MD: Adry Acevedo Diagnosis: Fall on same level from slipping, tripping and stumbling with subsequent striking against object;Right upper chest wall pain Presentation: 01/13 08:02 Chief complaint: Patient states: Fell from standing last night and hit R anterior chest ss wall onto bedpost. Denies difficulty breathing. Coronavirus screen: Client denies travel out of the [place] in the last 14 days. Ebola Screen: Patient denies exposure to infectious person. Patient denies travel to an Ebola-affected area in the 21 days before illness onset. Initial Sepsis Screen: Does the patient meet any 2 criteria? No. Patient's initial sepsis screen is negative. Does the patient have a suspected source of infection? No. Patient's initial sepsis screen is negative. Risk Assessment: Do you want to hurt yourself or someone else? Patient reports no desire to harm self or others. Onset of symptoms was January 12, 2023. 08:02 Method Of Arrival: Ambulatory ss 08:02 Acuity: KATHLEEN 3 Historical: - Allergies: 08:03 No Known Allergies; ss - PMHx: 08:03 Diabetes - NIDDM; Hyperlipidemia; Hypertension; Colon CA; ss - PSHx: 08:03 Colon resection; hernia repair; ss - Immunization history:: Client reports receiving the 2nd dose of the Covid vaccine. - Social history:: Smoking status: Patient denies any tobacco usage or history of. Vital Signs: 08:02 BP 138 / 77; Pulse 73; Resp 18; Temp 98.0(O); Pulse Ox 99% on R/A; Weight 91.63 kg; ss Height 6 ft. 0 in. (182.88 cm); Pain 4/10; 08:02 Body Mass Index 27.40 (91.63 kg, 182.88 cm) ED Course: 07:46 Patient arrived in ED. mr 07:46 Adry Acevedo is Private Physician. mr 07:55 Jessica Correa FNP-C [facility] kb 07:55 Gustavo Lemus MD is Attending Physician. kb 08:03 Triage completed. ss 08:03 Arm band placed on right wrist. ss 09:25 No provider procedures requiring assistance completed. Patient did not have IV access ss during this emergency room visit. Administered Medications: No medications were administered Outcome: 09:05 Discharge ordered by . kb 09:25 Discharged to home ambulatory. ss 09:25 Condition: good 09:25 Discharge instructions given to patient, family, Instructed on discharge instructions, follow up and referral plans. medication usage, Demonstrated understanding of instructions, follow-up care, medications, Prescriptions given X 1. 09:25 Patient left the ED. ss Signatures: Jessica Correa, BEAD BUILDER-C BEAD BUILDER-Folridalma Razo mr Vida Levin, RN RN ss
[2023-01-13 09:57] VITALS: BP 138/77; TEMP 98; O2SAT 99
== END 2023-01-13 09:25 | disposition home or self-care (01) ==
LOC: ER 07:42
DX: R07.89 Other chest pain (principal); W01.10XA Fall on same level from slipping, tripping and stumbling with subsequent striking against unspecified object, initial encounter; E11.9 Type 2 diabetes mellitus without complications; I10 Essential (primary) hypertension
CPT/HCPCS: 71045; 99282

== ENCOUNTER 2024-08-09 11:10 | Day surgery (SDC) | payer OTHER ==
[2024-08-06 13:23] LABS: Absolute Eosinophils 0.3 K/uL (0-0.5); Absolute Lymphocytes (CBC) 1.5 K/uL (0.7-4.9); Absolute Monocytes 0.4 K/uL (0.1-1.3); Absolute Neutrophil 3.9 K/uL (1.8-8.0); Basophils % 0.7 % (0-1.3); Eosinophils % 4.3 % (0-4.4); Hematocrit 41.6 % (39.6-49.0); Hemoglobin 13.8 g/dL (13.6-17.9); Lymphocytes % 24.1 % (15.3-44.8); MCH 32.2 pg (27.0-35.0); MCHC 33.3 g/dL (32.0-36.0); MCV 96.5 fL (80-100); MPV 7.9 fL (7.6-11.3); Monocytes % 6.3 % (3.3-12.3); Neutrophils % 64.6 % (41.7-73.7); Platelets 194 thou/uL (152-406); Red Cell Distribution Width 13.7 % (12.1-15.2)
[2024-08-06 13:29] LABS: PTT, Activated Partial Thromb 32.3 SECONDS (24.3-36.9); Protime INR 0.98
[2024-08-06 13:36] LABS: Anion Gap 9.9 mEq/L (5.0-15.0); Potassium 4.9 mEq/L (3.5-5.1)
--- NOTE | 2024-08-06 17:31 | RAD REPORT ---
EXAM: Chest 2 views HISTORY: History of colon cancer, hypertension, diabetes, preop for catheter lab COMPARISON: 01/13/2023 FINDINGS: LUNGS/PLEURA: The lungs are clear. No pleural effusions or pneumothorax. No pulmonary edema. MEDIASTINUM: The mediastinal silhouette is within normal limits. CARDIAC: Mild cardiomegaly. UPPER ABDOMEN: No significant abnormality. BONES: No acute fracture. LINES/TUBES/OTHER: N/A IMPRESSION: No evidence of acute cardiopulmonary disease
[2024-08-09] MEDS ORDERED: NA CHLORIDE 0.9% 500 ML ONE (11:12)
[2024-08-09] MEDS ORDERED: HEPA 1000U/500MLS 2,000 UNIT/1,000 ML BAG IV ONE (12:43)
[2024-08-09] MEDS ORDERED: LIDOCAINE 1% 20 ML MDV ONE (12:44)
[2024-08-09] MEDS ORDERED: VERAPAMIL HCL 10 MG/4 ML VIAL IV ONE (12:57)
[2024-08-09] MEDS ORDERED: MIDAZOLAM HCL 2 MG/2 ML INJ ONE (12:57)
[2024-08-09] MEDS ORDERED: FENTANYL CITR 100 MCG/2 ML ONE (12:57)
[2024-08-09] MEDS ORDERED: HEPARIN 10,000 UNIT/10 ML VIAL IV ONE (12:57)
[2024-08-09] MEDS ORDERED: ATROPINE SULF 1 MG/10 ML SYR IV ONE (12:58)
[2024-08-09] MEDS ORDERED: CLOPIDOGREL 75 MG TABLET ONE (12:58)
[2024-08-09] MEDS ORDERED: HEPARIN 5000 UNIT/ML 1 ML VIAL ONE (12:58)
[2024-08-09] MEDS ORDERED: TICAGRELOR 90 MG TABLET PO ONE (12:58)
[2024-08-09] MEDS ORDERED: ASPIRIN 325 MG TAB ONE (12:58)
--- NOTE | 2024-08-09 12:58 | EKG ---
Test Date: 2024-08-06 Test Time: 13:14:08 [place] Cleaner: BOBY MEASUREMENT RESULTS: Intervals: Rate: 93 DE: QRSD: 106 QT: 362 QTc: 450 [place]: P: DE: QRS: 23 T: 29 INTERPRETIVE STATEMENTS: Atrial fibrillation with premature ventricular or aberrantly conducted complexes Abnormal ECG Compared to ECG 04/09/2018 09:01:39 Ventricular premature complex(es) now present Sinus rhythm no longer present Atrial premature complex(es) no longer present Electronically Signed On 08-09-24 12:49:53 CDT by Neo Culver
--- NOTE | 2024-08-09 14:57 | OP ---
Date of Procedure: 08/09/2024 Surgeon: STIVEN GALVAN Procedure Performed: Selective coronary angiogram. Indication: Pre-aortic valve replacement. Has severe aortic valve stenosis. Access: Right radial artery 6-[place] closed with TR band. Complications: None. Bleeding: Less than 50 mL. Anesthesia: Total sedation time was 45 minutes. Used fentanyl and Versed. Description Of Procedure: After risks, benefits, and alternatives were explained, patient agreed to the procedure and signed informed consent. The patient was brought into cardiac catheter[facility], prepped and draped in the usual sterile fashion. Then, I accessed right radial artery using pediatric micropuncture kit, placed 6-[place] Slender sheath. Took 5-[place] 4.0 catheter over t he J-wire into the aortic root, engaged left main, and then in the right coronary artery took standar d views and then removed the catheter and the sheath, placed TR band with good hemostasis. Findings: 1.Left main; proximal 20% stenosis, but it is very large vessel. 2.LAD; large vessel with proximal 30%, mid 30%, and then luminal irregularities. Diagonal 1 has lum inal irregularities. 3.Left circumflex; very large and dominant with luminal irregularities. 4.RCA; moderate size and codominant. Has proximal 50%, mid luminal irregularities and then luminal irregularities of the PDA. Conclusion: Moderate coronary artery disease. Recommendation: Proceed with valve replacement as scheduled. SR/MODL Voice ID: [id number] Report ID: [id number]
[2024-08-09 16:05] VITALS: BP 121/72
[2024-08-09 16:09] VITALS: O2SAT 96
== END 2024-08-09 15:45 | disposition home or self-care (01) ==
LOC: CCL 11:10
PROVIDERS: ATTEND Internal Medicine
DX: I35.0 Nonrheumatic aortic (valve) stenosis (principal); I25.10 Atherosclerotic heart disease of native coronary artery without angina pectoris; I10 Essential (primary) hypertension; E78.5 Hyperlipidemia, unspecified; E11.9 Type 2 diabetes mellitus without complications; Z79.82 Long term (current) use of aspirin; Z79.899 Other long term (current) drug therapy; Z82.49 Family history of ischemic heart disease and other diseases of the circulatory system
CPT/HCPCS: 93005; 85025; 80048; 36415; 85610; 85730; 71046; 93454; 76937; C1893; Q9966; J1644; J2001; J2250; J3010; J7040; 99152; J0461

== ENCOUNTER 2024-08-25 14:38 | Inpatient (IN) | payer OTHER ==
--- NOTE | 2024-08-25 15:12 | RAD REPORT ---
EXAMINATION: CT HEAD WITHOUT CONTRAST CLINICAL INDICATION: Male, 84 years old.DIZZINESS TECHNIQUE: Axial CT images from the skull base to the vertex without intravenous contrast. Coronal an d sagittal reformatted images were created from the data set. One or more of the following dose reduction techniques were used: Automated exposure control, adjustment of the mA and/or kV according to patient size, and/or iterative reconstruction. Unless otherwise specified, incidental findings do not require dedicated imaging follow-up. [id number]. COMPARISON: 06/18/2017 FINDINGS: INTRACRANIAL: No acute intracranial hemorrhage. No hydrocephalus. No mass effect or midline shift. No significant white matter disease. Cerebral atrophy and marked chronic small vessel ischemic changes. VASCULATURE: No visualized abnormalities in the arteries or dural venous sinuses. SCALP/SKULL: No significant soft tissue or osseous abnormalities. SINUSES: Mucosal thickening in the maxillary sinuses bilaterally. IMPRESSION: No acute intracranial abnormality.
--- NOTE | 2024-08-25 15:21 | RAD REPORT ---
EXAMINATION: ONE VIEW CHEST XR CLINICAL INDICATION: Male, 84 years old.COUGH TECHNIQUE: 1 View, AP supine, X-ray of the chest was performed. [id number]. COMPARISON: 08/06/24 FINDINGS: Lungs and pleura: Clear lungs. No effusion. Heart and mediastinum: Normal heart size. Unremarkable mediastinal contours. Osseous structures: No acute abnormality. Tubes/lines: None Other: None. IMPRESSION: No acute intrathoracic abnormality.
[2024-08-25 15:24] LABS: Absolute Lymphocytes (CBC) 0.3 K/uL (0.7-4.9); Absolute Monocytes 0.3 K/uL (0.1-1.3); Basophils % 0.5 % (0-1.3); Eosinophils % 0.8 % (0-4.4); Hematocrit 38.1 % (39.6-49.0); Hemoglobin 12.8 g/dL (13.6-17.9); Lymphocytes % 5.6 % (15.3-44.8); MCH 32.2 pg (27.0-35.0); MCHC 33.7 g/dL (32.0-36.0); MCV 95.4 fL (80-100); MPV 7.9 fL (7.6-11.3); Monocytes % 5.5 % (3.3-12.3); Neutrophils % 87.6 % (41.7-73.7); Platelets 150 thou/uL (152-406); RBC Red Blood Cell Count 3.99 M/uL (4.33-5.43); Red Cell Distribution Width 13.5 % (12.1-15.2)
[2024-08-25 15:25] LABS: PT Prothrombin Time 12.9 SECONDS (9.4-12.5); Protime INR 1.16
[2024-08-25 15:41] LABS: ALT/SGPT 18 U/L (16-61); AST/SGOT 19 U/L (15-37); Albumin 3.3 g/dL (3.4-5.0); Alkaline Phosphatase 88 U/L (45-117); BUN Blood Urea Nitrogen 27 mg/dL (7-18); Bicarbonate 22 mEq/L (21-32); Bilirubin Total 0.4 mg/dL (0.2-1.0); Globulin 3.4 g/dL (2.3-3.5); Glomerular Filtration Rate 36 ml/min (=/>90); Glucose Level 143 mg/dL (74-106); Lipase 35 U/L (13-75); Magnesium 1.9 mg/dL (1.6-2.4); NT PRO-BNP 5505 pg/mL (<450); Protein, Total 6.7 g/dL (6.4-8.2); Sodium Level 132 mEq/L (136-145); Troponin High Sensitivity 27.2 pg/mL (<58.9)
[2024-08-25 15:43] LABS: Bilirubin Direct < 0.2 mg/dL (0-0.2); Bilirubin Indirect, Calculated 0.2 mg/dL (0.2-0.8)
[2024-08-25] MEDS ORDERED: ENOXAPARIN 100 MG/ML SYR SQ ONE (16:00)
[2024-08-25] MEDS ORDERED: FAMOTIDINE 20 MG/2 ML VIAL IV ONE (16:01)
[2024-08-25] MEDS ORDERED: METOPROLOL TARTRATE 5 MG/5 ML INJ IV ONE (16:01)
[2024-08-25] MEDS ORDERED: METOPROLOL XL 50 MG TAB PO ONE (16:01)
--- NOTE | 2024-08-25 16:05 | ER ---
Nurse's Notes [facility] Name: Lauro Masters Age: 84 yrs Sex: Male : 1940 Arrival Date: 08/25/2024 Time: 14:38 Bed 7 Private MD: Diagnosis: Persistent atrial fibrillation-with RVR, NEW ONSET;Weakness;Unspecified kidney failure;Cutaneous abscess of other sites-RIGHT LOWER ABDOMINAL WALL , PARTIALLY RESOLVED Presentation: 08/25 14:42 Chief complaint: EMS states: DIZZINESS AFTER TAKING BACTRIM AT 0800. Coronavirus bp screen: At this time, the client does not indicate any symptoms associated with coronavirus-19. Ebola Screen: No symptoms or risks identified at this time. Initial Sepsis Screen: Does the patient meet any 2 criteria? No. Patient's initial sepsis screen is negative. Does the patient have a suspected source of infection? No. Patient's initial sepsis screen is negative. Risk Assessment: Do you want to hurt yourself or someone else? Patient reports no desire to harm self or others. Onset of symptoms was August 25, 2024 at 08:00. 14:42 Method Of Arrival: EMS: [facility] bp 14:42 Acuity: KATHLEEN 3 bp Triage Assessment: 14:44 General: Appears in no apparent distress. Behavior is cooperative, appropriate for age, bp anxious. Pain: Denies pain. EENT: No deficits noted. Neuro: Reports dizziness. Cardiovascular: Rhythm is irregular. Respiratory: No deficits noted. GI: No signs and/or symptoms were reported involving the gastrointestinal system. : No signs and/or symptoms were reported regarding the genitourinary system. Derm: No deficits noted. Musculoskeletal: No deficits noted. Historical: - Allergies: 14:44 No Known Allergies; bp - PMHx: 14:44 Hypertension; Hyperlipidemia; Diabetes - NIDDM; COLON CA; bp - PSHx: 14:44 hernia repair; colon resection; bp - Immunization history:: Adult Immunizations up to date. - Infectious Disease History:: Denies. - Social history:: Smoking status: Patient denies any tobacco usage or history of. - Family history:: not pertinent. Screenin:45 [facility] ED Fall Risk Assessment (Adult) History of falling in the last 3 months, bp including since admission No falls in past 3 months (0 pts) Confusion or Disorientation No (0 pts) Intoxicated or Sedated No (0 pts) Impaired Gait No (0 pts) Mobility Assist Device Used No (0 pt) Altered Elimination No (0 pt) Score/Fall Risk Level 0 - 2 = Low Risk Oriented to surroundings. Abuse screen: Denies threats or abuse. Denies injuries from another. Nutritional screening: No deficits noted. Tuberculosis screening: No symptoms or risk factors identified. Assessment: 14:45 General: SEE TRIAGE NOTE. bp 16:08 Reassessment: Patient appears in no apparent distress at this time. Patient is alert, bp oriented x 3, equal unlabored respirations, skin warm/dry/pink. 17:28 Reassessment: REPORT FAXED TO 216. bp Vital Signs: 14:42 BP 122 / 74; Pulse 100; Resp 18; Temp 98; Pulse Ox 96% ; bp 16:07 BP 104 / 65; Pulse 117; Resp 18; Pulse Ox 94% ; bp 17:27 BP 105 / 68; Pulse 96; Resp 12; Temp 98; Pulse Ox 96% ; bp ED Course: 14:42 Patient arrived in ED. bp 14:43 Gustavo Lemus MD is Attending Physician. fritz 14:43 Triage completed. bp 14:44 Arm band placed on. bp 14:45 Patient has correct armband on for positive identification. bp 14:46 Bryce Vazquez, RN is Primary Nurse. bp 14:56 CT Head Brain wo Cont In Process Unspecified. EDMS 15:02 XRAY Chest (1 view) In Process Unspecified. EDMS 15:10 Initial lab(s) drawn, by me, sent to lab. EKG done, by ED staff, reviewed by Gustavo Lemus MD. Inserted saline lock: 22 gauge in right forearm, using aseptic technique. Blood collected. Flushed with 10 mL NS. 16:03 Giuliano Carver is Hospitalizing Provider. fritz 16:53 1653 CM met with and his daughter Lavern at the bedside in the ED exam ane room. Patient identified by name and . Demographic sheet confirmed. Patient reports he lives in a 2 story home with his daughter and that prior to admission, he performs ADLs independently. NO DME, no HH, No home oxygen or other medical services at this time. MPOA is in place and PCP is Curtis Rider FNP. Patient wishes to return home upon discharge and Lavern states she will transport him home. CM team will continue to follow and coordinate care during this hospital stay. Administered Medications: 15:09 Drug: NS 0.9% IV 500 ml IV at bolus once Route: IV; Rate: bolus; Site: right forearm; bp 15:09 Drug: NS 0.9% IV 1000 ml IV at 125 ml/hr continuous Route: IV; Rate: 125 ml/hr; Site: bp right forearm; 16:00 Drug: Metoprolol IVP 2.5 mg IVP once; Hold for SBP <100 or HR <60. Route: IVP; Site: bp right forearm; 16:06 Drug: Famotidine IVP 20 mg IVP once; dilute with 10 mL 0.9% NaCl; give over 2 minutes bp Route: IVP; Site: right forearm; 16:06 Drug: Enoxaparin Sub-Q 100 mg Sub-Q once Route: Sub-Q; Site: right lower abdomen; bp 16:07 Drug: Metoprolol PO 50 mg PO once Route: PO; bp 16:07 Drug: Metoprolol IVP 2.5 mg IVP once; Hold for SBP <100 or HR <60. Route: IVP; Site: bp right forearm; Medication: 14:45 VIS not applicable for this client. bp Outcome: 16:04 Decision to Hospitalize by Provider. fritz 18:24 Patient left the ED. ph Signatures: Dispatcher [employer] Gustavo De La Paz MD MD cha Hall, Patricia, RN RN ph Peltier, Brian, RN RN bp Elliott, Andie, RN RN skylar
--- NOTE | 2024-08-25 16:05 | EDPHYS ---
Physician Documentation [facility] Name: Lauro Masters Age: 84 yrs Sex: Male : 1940 Arrival Date: 08/25/2024 Time: 14:38 Bed 7 Private MD: ED Physician Gustavo Lemus HPI: 08/25 15:55 This 84 yrs old Male presents to ER via EMS with complaints of Dizziness. fritz 15:55 The patient presents with dizziness, feeling faint, generalized weakness, fritz lightheadedness. Onset: The symptoms/episode began/occurred just prior to arrival, this morning. Context: occurred at home, occurred while the patient was at rest, just prior to the episode the patient experienced no apparent symptoms. Modifying factors: The symptoms are alleviated by nothing, the symptoms are aggravated by nothing. Associated signs and symptoms: Pertinent positives: palpitations, shortness of breath. Severity of symptoms: At their worst the symptoms were moderate in the emergency department the symptoms have improved mildly. Patient's baseline: Neuro: alert and fully oriented. The patient has not experienced similar symptoms in the past. Historical: - Allergies: 14:44 No Known Allergies; bp - PMHx: 14:44 Hypertension; Hyperlipidemia; Diabetes - NIDDM; COLON CA; bp - PSHx: 14:44 hernia repair; colon resection; bp - Immunization history:: Adult Immunizations up to date. - Infectious Disease History:: Denies. - Social history:: Smoking status: Patient denies any tobacco usage or history of. - Family history:: not pertinent. ROS: 15:55 Constitutional: Negative for fever, chills, and weight loss, Eyes: Negative for injury, fritz pain, redness, and discharge, ENT: Negative for injury, pain, and discharge, Neck: Negative for injury, pain, and swelling, Respiratory: Negative for shortness of breath, cough, wheezing, and pleuritic chest pain, Abdomen/GI: Negative for abdominal pain, nausea, vomiting, diarrhea, and constipation, Back: Negative for injury and pain, : Negative for injury, bleeding, discharge, and swelling, MS/Extremity: Negative for injury and deformity, Skin: Negative for injury, rash, and discoloration, Neuro: Negative for headache, weakness, numbness, tingling, and seizure, Psych: Negative for depression, anxiety, suicide ideation, homicidal ideation, and hallucinations, Allergy/Immunology: Negative for hives, rash, and allergies, Endocrine: Negative for neck swelling, polydipsia, polyuria, polyphagia, and marked weight changes, Hematologic/Lymphatic: Negative for swollen nodes, abnormal bleeding, and unusual bruising, 15:55 Cardiovascular: Positive for palpitations, Exam: 15:55 Constitutional: This is a well developed, well nourished patient who is awake, alert, fritz and in no acute distress. Head/Face: Normocephalic, atraumatic. Eyes: Pupils equal round and reactive to light, extra-ocular motions intact. Lids and lashes normal. Conjunctiva and sclera are non-icteric and not injected. Cornea within normal limits. Periorbital areas with no swelling, redness, or edema. ENT: Nares patent. No nasal discharge, no septal abnormalities noted. Tympanic membranes are normal and external auditory canals are clear. Oropharynx with no redness, swelling, or masses, exudates, or evidence of obstruction, uvula midline. Mucous membranes moist. Neck: Trachea midline, no thyromegaly or masses palpated, and no cervical lymphadenopathy. Supple, full range of motion without nuchal rigidity, or vertebral point tenderness. No Meningismus. Chest/axilla: Normal chest wall appearance and motion. Nontender with no deformity. No lesions are appreciated. Respiratory: Lungs have equal breath sounds bilaterally, clear to auscultation and percussion. No rales, rhonchi or wheezes noted. No increased work of breathing, no retractions or nasal flaring. Abdomen/GI: Soft, non-tender, with normal bowel sounds. No distension or tympany. No guarding or rebound. No evidence of tenderness throughout. Back: No spinal tenderness. No costovertebral tenderness. Full range of motion. Male : Normal genitalia with no discharge or lesions. Skin: Warm, dry with normal turgor. Normal color with no rashes, no lesions, and no evidence of cellulitis. MS/ Extremity: Pulses equal, no cyanosis. Neurovascular intact. Full, normal range of motion. Neuro: Awake and alert, GCS 15, oriented to person, place, time, and situation. Cranial nerves II-XII grossly intact. Motor strength 5/5 in all extremities. Sensory grossly intact. Cerebellar exam normal. Normal gait. Psych: Awake, alert, with orientation to person, place and time. Behavior, mood, and affect are within normal limits. 15:55 Cardiovascular: Rate: tachycardic, actual rate is 139 bpm, Rhythm: irregularly irregular, Pulses: Pulses are 4+ in bilateral radial, brachial, femoral, popliteal, posterior tibial and and dorsalis pedis arteries.. Heart sounds: normal, Edema: is not appreciated, JVD: is not appreciated, 15:55 ECG was reviewed by the Attending Physician. Vital Signs: 14:42 BP 122 / 74; Pulse 100; Resp 18; Temp 98; Pulse Ox 96% ; bp 16:07 BP 104 / 65; Pulse 117; Resp 18; Pulse Ox 94% ; bp 17:27 BP 105 / 68; Pulse 96; Resp 12; Temp 98; Pulse Ox 96% ; bp MDM: 14:43 Patient medically screened. fritz 15:58 Differential diagnosis: cardiac arrhythmia, CVA, generalized weakness, GI bleed, fritz idiopathic dizziness, near-syncope, TIA. Data reviewed: vital signs, nurses notes, lab test result(s), EKG, radiologic studies, CT scan, plain films. Consideration of Admission/Observation Patient was admitted/placed on observation. Escalation of care including admission/observation considered. I considered the following discharge prescriptions or medication management in the emergency department Medications were administered in the Emergency Department. See MAR. Independent interpretation of the following test(s) in the Emergency Department EKG: See my EKG interpretation above. Test considered but Not performed: Ultrasound no 2 d echo in er. Historians other than the Patient: Spouse/Significant Other: well informed. Care significantly affected by the following chronic conditions: Diabetes, Hypertension, Cancer, hyperlipidemia. Counseling: I had a detailed discussion with the patient and/or guardian regarding the historical points, exam findings, and any diagnostic results supporting the discharge/admit diagnosis, lab results, radiology results, the need for further work-up and treatment in the hospital. 08/25 14:45 Order name: Basic Metabolic Panel; Complete Time: 15:52 fritz 08/25 14:45 Order name: CBC with Diff; Complete Time: 15:52 fritz 08/25 14:45 Order name: LFT's; Complete Time: 15:52 fritz 08/25 14:45 Order name: Magnesium; Complete Time: 15:52 fritz 08/25 14:45 Order name: NT PRO-BNP; Complete Time: 15:52 [facility] 08/25 14:45 Order name: PT-INR; Complete Time: 15:52 [facility] 08/25 14:45 Order name: Troponin HS; Complete Time: 15:52 [facility] 08/25 14:45 Order name: Urinalysis w/ reflexes [facility] 08/25 14:45 Order name: Lipase; Complete Time: 15:52 [facility] 08/25 15:51 Order name: TSH [facility] 08/25 17:00 Order name: Basic Metabolic Panel EDMS 08/25 17:00 Order name: Basic Metabolic Panel EDMS 08/25 17:00 Order name: Basic Metabolic Panel EDMS 08/25 17:00 Order name: Basic Metabolic Panel EDMS 08/25 17:00 Order name: CBC with Automated Diff EDMS 08/25 17:00 Order name: CBC with Automated Diff EDMS 08/25 17:00 Order name: CBC with Automated Diff EDMS 08/25 17:00 Order name: CBC with Automated Diff EDMS 08/25 17:00 Order name: Lipid Profile EDMS 08/25 17:00 Order name: Lipid Profile EDMS 08/25 17:00 Order name: Magnesium EDMS 08/25 17:00 Order name: Magnesium EDMS 08/25 17:00 Order name: Magnesium EDMS 08/25 17:00 Order name: Magnesium EDMS 08/25 17:00 Order name: Phosphorus EDMS 08/25 17:00 Order name: Phosphorus EDMS 08/25 17:00 Order name: Phosphorus EDMS 08/25 17:00 Order name: Phosphorus EDMS 08/25 17:00 Order name: Troponin High Sensitivity EDMS 08/25 17:00 Order name: Troponin High Sensitivity EDMS 08/25 17:00 Order name: Troponin High Sensitivity EDMS 08/25 14:45 Order name: XRAY Chest (1 view); Complete Time: 15:52 [facility] 08/25 14:45 Order name: CT Head Brain wo Cont; Complete Time: 15:52 [facility] 08/25 14:45 Order name: Cardiac monitoring; Complete Time: 15:10 [facility] 08/25 14:45 Order name: EKG - Nurse/Tech; Complete Time: 15:09 [facility] 08/25 14:45 Order name: IV Saline Lock; Complete Time: 15:10 [facility] 08/25 14:45 Order name: Labs collected and sent; Complete Time: 15:10 fritz 08/25 14:45 Order name: O2 Per Protocol; Complete Time: 14:46 fritz 08/25 14:45 Order name: O2 Sat Monitoring; Complete Time: 14:46 [facility] EC:55 Rate is 139 beats/min. Rhythm is irregularly irregular. QRS [place] is Normal. CA interval fritz is normal. QRS interval is normal. QT interval is normal. No Q waves. T waves are Normal. No ST changes noted. Clinical impression: Atrial Fibrillation. Interpreted by me. Reviewed by me. Administered Medications: 15:09 Drug: NS 0.9% IV 500 ml IV at bolus once Route: IV; Rate: bolus; Site: right forearm; bp 15:09 Drug: NS 0.9% IV 1000 ml IV at 125 ml/hr continuous Route: IV; Rate: 125 ml/hr; Site: bp right forearm; 16:00 Drug: Metoprolol IVP 2.5 mg IVP once; Hold for SBP <100 or HR <60. Route: IVP; Site: bp right forearm; 16:06 Drug: Famotidine IVP 20 mg IVP once; dilute with 10 mL 0.9% NaCl; give over 2 minutes bp Route: IVP; Site: right forearm; 16:06 Drug: Enoxaparin Sub-Q 100 mg Sub-Q once Route: Sub-Q; Site: right lower abdomen; bp 16:07 Drug: Metoprolol PO 50 mg PO once Route: PO; bp 16:07 Drug: Metoprolol IVP 2.5 mg IVP once; Hold for SBP <100 or HR <60. Route: IVP; Site: bp right forearm; Disposition Summary: 08/25/24 16:04 Hospitalization Ordered Notes: Hospitalization Status: Observation fritz Provider: Giuliano Carver cha Location: Telemetry/MedSurg (observation) fritz Condition: Fair fritz Problem: new fritz Symptoms: have improved fritz Bed/Room Type: Standard [facility] Room Assignment: 216(08/25/24 17:04) bd Diagnosis - Persistent atrial fibrillation - with RVR, NEW ONSET fritz - Weakness fritz - Unspecified kidney failure fritz - Cutaneous abscess of other sites - RIGHT LOWER ABDOMINAL WALL , PARTIALLY RESOLVED fritz Forms: - Medication Reconciliation Form fritz - SBAR form fritz - Leadership Thank You Letter fritz Signatures: Dispatcher [employer] EDMarcie Vargas Corey, MD MD cha Peltier, Brian, RN RN bp Corrections: (The following items were deleted from the chart) 14: 14:46 Chest Single View+RAD.RAD.BRZ ordered. EDMS EDMS 1446 14:46 Head Brain Wo Cont+CT.RAD.BRZ ordered. EDMS EDMS 17:04 16:04 fritz webber
--- NOTE | 2024-08-25 16:36 | P.HP ---
Certification for Inpatient Patient admitted to: Inpatient With expected LOS: >2 Midnights Patient will require the following post-hospital care: None Practitioner: I am a practitioner with admitting privileges, knowledge of patient current condition, hospital course, and medical plan of care. Services: Services provided to patient in accordance with Admission requirements found in Title 42 Section 412.3 of the Code of Federal Regulations Patient History Date of Service: 08/25/24 Reason for admission: New onset A-fib with RVR History of Present Illness: Lauro Masters is an 84-year-old male with past medical history of hypertension, hyperlipidemia, diabetes mellitusNIDDM, colon cancer who presents to with chief complaint of dizziness, lightheadedness, and palpitations. He reports having a recent heart cath in preparation for a TAVR with Dr. Culver. He was started on sulfa for a suspected right lower abdomen skin infection that needed to be taken care of prior to the TAVR. He reports not feeling well today and thinking it was from the sulfa. His symptoms were weakness, heart palpitations, N/V/D. He called the ambulance when he was too weak to get off his bathroom floor. On admission to the ED, EKG showing HR 139, hypotension, systolic murmur, in no acute distress. Initial vitals BP 122 / 74; Pulse 100; Resp 18; Temp 98; Pulse Ox 96% Chest pain report "No acute intrathoracic abnormality" Head CT reports "No acute intracranial abnormality." Will be admitted to hospitalist service for further evaluation and treatment of A-fib with RVR. Cardiology consulted Allergies No Known Allergies Allergy (Verified 08/06/24 12:56) Home Medications: Aspirin 1 tab PO DAILY 04/09/18 Carvedilol [Coreg] 3.125 mg PO BID* #180 tablet 04/09/18 Metformin HCl 1 tab PO DAILY 04/09/18 Simvastatin 1 tab PO DAILY 04/09/18 - Past Medical/Surgical History Diabetic: No -: HTN -: Hyperlipidemia -: GERD -: Hx Colon CA -: Herpes -: Colon resection 1987 -: Left inguinal hernia repair - Family History Father -: Hypertension, Diabetes Mother -: Hypertension, Diabetes, Cancer Brother -: Heart disease, Hypertension, Diabetes, Stroke Notes: macular degeneration bilateral eyes - Social History Smoking Status: Smoker current status UNK Alcohol use: Yes CD- Drugs: No Caffeine use: Yes Review of Systems Cardiovascular: Palpitations Gastrointestinal: Nausea, Vomiting Neurological: Other (Dizziness) Physical Examination - Physical Exam General: Alert, In no apparent distress, Oriented x3 HEENT: Atraumatic, Normocephalic Neck: Supple, 2+ carotid pulse no bruit, JVD not distended Respiratory: Clear to auscultation bilaterally, Normal air movement Cardiovascular: No edema, Normal pulses, Normal S1 S2, Other (Systolic murmur), Irregular heart rate/rhythm Capillary refill: <2 Seconds Gastrointestinal: Normal bowel sounds, Soft and benign, Non-distended, No tenderness, Other (left lower abdomen breakdown) Musculoskeletal: No clubbing Integumentary: No rashes Neurological: Normal speech, Normal tone - Studies Laboratory Data (last 24 hrs) 08/25/24 08/25/24 08/25/24 15:10 15:10 15:10 WBC 4.60 Hgb 12.8 L Hct 38.1 L Plt Count 150 L PT 12.9 H INR 1.16 Sodium 132 L Potassium 5.0 BUN 27 H Creatinine 1.80 H Glucose 143 H Magnesium 1.9 Total Bilirubin 0.4 AST 19 ALT 18 Alkaline Phosphatase 88 Lipase 35 Assessment and Plan - Plan Assessment and plan New onset A-fib with RVR Aortic stenosis -Sotalol 80 BID with serial EKG -Eliquis 5 BID -Cardiology consulted -Reports TAVR will be schedule outpatient -Recent heart cath prior to new onset Afib -Continuous telemetry Skin infection to right lower abdomen -cefpodoxime BID -Preparation for TAVR -stopped taking Sulfa d/t reaction of feeling unwell Fluid volume deficit 2/2 vomiting/diarrhea IVY -BUN/creatinine 27/1.8, GFR 36 -Monitor in AM labs Hypertension/hyperlipidemia -continue home medications Diabetes mellitusNIDDM -Accucheck with SSI Colon cancer -Continue outpatient follow-up DVT ppx Eliquis Full code LOS Discharge Plan: Home Plan to discharge in: 48 Hours - Advance Directives Does patient have a Living Will: Yes Does patient have a Durable POA for Healthcare: Yes
[2024-08-25] MEDS ORDERED: HEPARIN 5000 UNIT/ML 1 ML VIAL SQ SCH (17:00)
[2024-08-25] MEDS ORDERED: LABETALOL 20 MG/4ML SYRINGE IV PRN (17:14)
[2024-08-25] MEDS: CEFUROXIME 250 MG TAB PO SCH (18:00)
[2024-08-25] MEDS: APIXABAN 5 MG TABLET PO SCH (20:39)
[2024-08-25] MEDS: SOTALOL HCL 80 MG TAB PO SCH (20:39)
[2024-08-25] MEDS: INSULIN REGULAR (HUMAN) 100 UNIT/ML SQ SCH (20:43)
[2024-08-25 23:03] VITALS: BMI 27.1
[2024-08-26] MEDS: NA CHLORIDE 0.9% 1,000 ML IV SCH (02:32)
[2024-08-26 06:00] LABS: Absolute Eosinophils 0.1 K/uL (0-0.5); Absolute Lymphocytes (CBC) 0.4 K/uL (0.7-4.9); Absolute Monocytes 0.4 K/uL (0.1-1.3); Absolute Neutrophil 2.7 K/uL (1.8-8.0); Basophils % 0.7 % (0-1.3); Eosinophils % 2.4 % (0-4.4); Hemoglobin 12.5 g/dL (13.6-17.9); Lymphocytes % 11.5 % (15.3-44.8); MCH 31.8 pg (27.0-35.0); MCHC 32.8 g/dL (32.0-36.0); MPV 7.9 fL (7.6-11.3); Neutrophils % 75.4 % (41.7-73.7); Platelets 140 thou/uL (152-406); RBC Red Blood Cell Count 3.92 M/uL (4.33-5.43); Red Cell Distribution Width 13.9 % (12.1-15.2)
[2024-08-26 06:22] LABS: Anion Gap 6.8 mEq/L (5.0-15.0); Phosphorus 2.9 mg/dL (2.5-4.9); Potassium 5.8 mEq/L (3.5-5.1)
[2024-08-26] MEDS: LACTULOSE 20 GM/30 ML UCUP PO ONE (08:25)
--- NOTE | 2024-08-26 12:39 | P.CNS ---
Date of Consult: 08/26/24 Chief Complaint: New onset A-fib with RVR History of Present Illness: Patient with PMH of severe getting worked up for TAVR, diastolic dysfunction, mild to moderate CAD, presented with generalized malaise, weakness, that started after he was started on antibiotics for right groin celluitis, found to be in AF RVR, denies chest pain, no syncope. Allergies No Known Allergies Allergy (Verified 08/06/24 12:56) Home medications list reviewed: Yes Home Medications: Aspirin 1 tab PO DAILY 04/09/18 Carvedilol [Coreg] 3.125 mg PO BID* #180 tablet 04/09/18 Metformin HCl 1 tab PO DAILY 04/09/18 Simvastatin 1 tab PO DAILY 04/09/18 Lisinopril [Zestril] 1 tab PO DAILY 08/25/24 Pioglitazone [Actos*] 30 mg PO DAILY 08/25/24 Tamsulosin [Flomax*] 0.4 mg PO DAILY 08/25/24 - Past Medical/Surgical History Diabetic: No -: HTN -: Hyperlipidemia -: GERD -: Hx Colon CA -: Herpes -: Colon resection 1986 -: Left inguinal hernia repair - Family History Father Medical History: Hypertension, Diabetes Mother Medical History: Hypertension, Diabetes, Cancer Brother Medical History: Heart disease, Hypertension, Diabetes, Stroke Notes: macular degeneration bilateral eyes - Social History Alcohol use: Yes CD- Drugs: No Caffeine use: Yes Review of Systems 10-point ROS is otherwise unremarkable Physical Examination Temp Pulse Resp BP Pulse Ox 98 F 96 H 12 105/68 97 08/26/24 09:27 08/26/24 09:27 08/26/24 09:27 08/26/24 09:27 08/26/24 08:00 General: Alert, In no apparent distress HEENT: Atraumatic, PERRLA, Mucous membr. moist/pink, EOMI, Sclerae nonicteric Neck: Supple, 2+ carotid pulse no bruit, No LAD, Without JVD or thyroid abnormality Respiratory: Clear to auscultation bilaterally, Normal air movement Cardiovascular: Irregular heart rate/rhythm Gastrointestinal: Normal bowel sounds, No tenderness Musculoskeletal: No tenderness Integumentary: No rashes Neurological: Normal gait, Normal speech, Normal tone, Normal affect Lymphatics: No axilla or inguinal lymphadenopathy Laboratory Data (last 24 hrs) 10/02/24 10/02/24 10/02/24 15:10 15:10 15:10 WBC 4.60 Hgb 12.8 L Hct 38.1 L Plt Count 150 L PT 12.9 H INR 1.16 Sodium 132 L Potassium 5.0 BUN 27 H Creatinine 1.80 H Glucose 143 H Magnesium 1.9 Total Bilirubin 0.4 AST 19 ALT 18 Alkaline Phosphatase 88 Lipase 35 - Problems (1) Elevated troponin Onset Date: 06/19/17 Current Visit: No Status: Acute Plan: Patient had a recent coronary angiogram that shown moderate mid RCA disease with mild LAD/LCX disease, troponin leak is mild and most likely secondary to AF, no further cardiac work up needed for that. (2) Paroxysmal atrial fibrillation Onset Date: 04/10/18 Current Visit: No Status: Acute Plan: not new onset as patient was told that he has AF before, started on Sotalol 80 mg po BID (please get EKG after 3rd dose) Eliquis 5 mg po BID NPO after midnight for possible ALIS DCCV in am. (3) Aortic stenosis Current Visit: Yes Status: Acute Plan: getting outpatient work up for TAVR.
--- NOTE | 2024-08-26 14:33 | P.PN ---
Date of Service: 08/26/24 Subjective Awake sitting on side of bed Ambulating independently No new complaints ROS 10 point ROS as noted above, otherwise negative Physical Exam General: Alert and Oriented x3, NAD HEENT: Atraumatic, Normocephalic Neck: Supple, 2+ carotid pulse no bruit, JVD not distended Respiratory: Clear to auscultation bilaterally, Normal air movement Cardiovascular: Normal pulses, Normal S1 S2, Other (Systolic murmur), Afib Capillary refill: <2 Seconds Gastrointestinal: Normal bowel sounds, Soft on palpation, Non-distended, No tenderness, Other (left lower abdomen bruised bump) Musculoskeletal: No clubbing Integumentary: No rashes Neurological: Normal speech, Normal tone Vitals Reviewed Problem list Paroxsymal A-fib with RVR Aortic stenosis Skin infection to right lower abdomen Fluid volume deficit 2/2 vomiting/diarrhea Hyperkalemia IVY Hypertension/hyperlipidemia Diabetes mellitusNIDDM Colon cancer Assessment and Plan Paroxsymal A-fib with RVR Elevated Troponin Aortic stenosis -Troponin 27.2/72.1/84.2, likely 2/2 Afib -Sotalol 80 BID with serial EKG -Eliquis 5 BID -Cardiology recommend, ALIS cardioversion 08/27 -Reports TAVR will be scheduled outpatient -Recent heart cath prior to new onset Afib -Continuous telemetry Skin infection to right lower abdomen -cefpodoxime BID -Preparation for TAVR -stopped taking Sulfa d/t reaction of feeling unwell Fluid volume deficit 2/2 vomiting/diarrhea Hyperkalemia/hypernatremia IVY -BUN/creatinine 26/1.62, GFR 41, K 5.8, na 132 -recheck potassium -Lactulose x1 -Monitor in AM labs Hypertension/hyperlipidemia -continue home medications Diabetes mellitusNIDDM -Accucheck with SSI Colon cancer -Continue outpatient follow-up DVT ppx Eliquis Full code LOS Discharge Plan: Home Plan to discharge in: 48 Hours
[2024-08-26 15:41] LABS: Anion Gap 8.2 mEq/L (5.0-15.0); Potassium 5.2 mEq/L (3.5-5.1)
[2024-08-26] MEDS: ACETAMINOPHEN 325 MG TABLET PO PRN (20:25)
[2024-08-26] MEDS: ATORVASTATIN 10 MG TAB PO SCH (20:25)
[2024-08-27 05:33] LABS: Absolute Eosinophils 0.4 K/uL (0-0.5); Absolute Lymphocytes (CBC) 0.8 K/uL (0.7-4.9); Absolute Monocytes 0.3 K/uL (0.1-1.3); Absolute Neutrophil 2.4 K/uL (1.8-8.0); Basophils % 0.5 % (0-1.3); Eosinophils % 10.2 % (0-4.4); Hematocrit 39.1 % (39.6-49.0); Hemoglobin 13.1 g/dL (13.6-17.9); MCH 32.1 pg (27.0-35.0); MCHC 33.5 g/dL (32.0-36.0); MCV 95.9 fL (80-100); MPV 7.6 fL (7.6-11.3); Monocytes % 8.6 % (3.3-12.3); Neutrophils % 60.7 % (41.7-73.7); Nucleated Red Blood Cells % 0.2 % (0-0); Platelets 145 thou/uL (152-406); RBC Red Blood Cell Count 4.07 M/uL (4.33-5.43); Red Cell Distribution Width 13.5 % (12.1-15.2)
[2024-08-27 05:49] LABS: Anion Gap 10.2 mEq/L (5.0-15.0); Phosphorus 3.8 mg/dL (2.5-4.9)
[2024-08-27 05:53] LABS: Magnesium 2.1 mg/dL (1.6-2.4); Potassium 5.2 mEq/L (3.5-5.1)
[2024-08-27] MEDS ORDERED: propofoL 200 MG/20 ML VIAL IV ONE (06:47)
[2024-08-27] MEDS ORDERED: LIDOCAINE 1% MPF 5 ML VIAL ONE (06:47)
[2024-08-27] MEDS: SODIUM ZIRCONIUM CYCLOSILICATE 10 GM/PKT PO ONE (10:27)
[2024-08-27] MEDS: ASPIRIN 81 MG CHEWABLE TABLET PO SCH (10:28)
--- NOTE | 2024-08-27 16:32 | EKG ---
Test Date: 2024-08-27 Test Time: 08:27:53 Passenger Barge Master: LUCIO MEASUREMENT RESULTS: Intervals: Rate: 47 [place]: 224 QRSD: 104 QT: 486 QTc: 430 [place]: P: 63 [place]: 224 QRS: -21 T: 54 INTERPRETIVE STATEMENTS: Marked sinus bradycardia with 1st degree AV block Abnormal ECG Compared to ECG 08/25/2024 15:03:00 First degree AV block now present Atrial fibrillation no longer present Electronically Signed On 08-27-24 16:31:38 CDT by Neo Culver
--- NOTE | 2024-08-27 16:40 | P.PN ---
Date of Service: 08/27/24 Subjective Awake and standing by the bed this morning Converted to Sinus rhythm this morning. no new complaints ROS 10 point ROS as noted above, otherwise negative Physical Exam General: AAO x2, NAD HEENT: Atraumatic, Normocephalic Neck: Supple, 2+ carotid pulse no bruit, JVD not distended Respiratory: Clear to auscultation bilaterally, Normal air movement Cardiovascular: Normal pulses, Normal S1 S2, Other (Systolic murmur), NSR Capillary refill: <2 Seconds Gastrointestinal: Normal active bowel sounds, Soft on palpation, Non-distended, No tenderness, Other (left lower abdomen bruised bump) Musculoskeletal: No clubbing Integumentary: No rashes Neurological: Normal speech, Normal tone Vitals Reviewed Problem list Paroxsymal A-fib with RVR Aortic stenosis Skin infection to right lower abdomen Fluid volume deficit 2/2 vomiting/diarrhea Hyperkalemia IVY Hypertension/hyperlipidemia Diabetes mellitusNIDDM Colon cancer Assessment and Plan Paroxsymal A-fib with RVR Elevated Troponin Aortic stenosis -Troponin 27.2/72.1/84.2, likely 2/2 Afib -Sotalol 80 BID with serial EKG -Eliquis 5 BID -Cardiology recommend, Converted with sotalol -Reports TAVR will be scheduled outpatient -Recent heart cath prior to new onset Afib -Continuous telemetry Skin infection to right lower abdomen -cefpodoxime BID -Preparation for TAVR -stopped taking Sulfa d/t reaction of feeling unwell Fluid volume deficit 2/2 vomiting/diarrhea Hyperkalemia/hypernatremia IVY -BUN/creatinine 33/1.75, GFR 38, K 5.2, na 134 -recheck potassium -Kayexalate x1 -Monitor in AM labs Hypertension/hyperlipidemia -continue home medications Diabetes mellitusNIDDM -Accucheck with SSI Colon cancer -Continue outpatient follow-up DVT ppx Eliquis Full code LOS Discharge Plan: Home Plan to discharge in: 48 Hours <Jadyn Fisher - Last Filed: 08/27/24 16:27> Patient seen and examined. Plan of care discussed with Ms. Pittsey. Patient spontaneously converted to sinus rhythm on sotalol. Daughter is complaining patient has unsteady gait. Plan: Continue sotalol and Eliquis PT consulted to reevaluate patient functional status. Continue telemetry Cardiology to follow. <ankita sanders - Last Filed: 08/27/24 18:24>
--- NOTE | 2024-08-27 16:41 | EKG ---
Test Date: 2024-08-25 Test Time: 15:03:00 Fish And Wildlife Technician: BP MEASUREMENT RESULTS: Intervals: Rate: 139 [place]: QRSD: 98 QT: 324 QTc: 493 [place]: P: [place]: QRS: 32 T: 68 INTERPRETIVE STATEMENTS: Atrial fibrillation with rapid ventricular response Abnormal ECG Compared to ECG 08/06/2024 13:14:08 Ventricular premature complex(es) no longer present Electronically Signed On 08-27-24 16:34:20 CDT by Neo Culver
[2024-08-28] MEDS: ONDANSETRON 4 MG/2 ML VIAL IV PRN (05:02)
[2024-08-28 05:36] LABS: C.diff Antigen/Toxin Ag neg : Tox neg (NEG : NEG); CDIFF INTERNAL NEG CONTROL White Background (WHITE BKGD); STOOL CONSISTENCY Liquid/Semi-Solid
[2024-08-28 06:02] LABS: Absolute Eosinophils 0.3 K/uL (0-0.5); Absolute Lymphocytes (CBC) 0.6 K/uL (0.7-4.9); Absolute Monocytes 0.4 K/uL (0.1-1.3); Absolute Neutrophil 4.6 K/uL (1.8-8.0); Basophils % 0.2 % (0-1.3); Eosinophils % 5.2 % (0-4.4); Hematocrit 37.9 % (39.6-49.0); Hemoglobin 12.8 g/dL (13.6-17.9); Lymphocytes % 10.5 % (15.3-44.8); MCH 32.2 pg (27.0-35.0); MCHC 33.7 g/dL (32.0-36.0); MCV 95.3 fL (80-100); MPV 7.6 fL (7.6-11.3); Monocytes % 6.9 % (3.3-12.3); Neutrophils % 77.2 % (41.7-73.7); Nucleated Red Blood Cells % 0.1 % (0-0); Platelets 149 thou/uL (152-406); RBC Red Blood Cell Count 3.97 M/uL (4.33-5.43); Red Cell Distribution Width 13.7 % (12.1-15.2)
[2024-08-28 06:20] LABS: Anion Gap 9.8 mEq/L (5.0-15.0); Magnesium 1.8 mg/dL (1.6-2.4); Phosphorus 3.1 mg/dL (2.5-4.9); Potassium 4.8 mEq/L (3.5-5.1)
--- NOTE | 2024-08-28 13:32 | RAD REPORT ---
EXAMINATION: ONE VIEW CHEST XR CLINICAL INDICATION: Male, 84 years old.Pneumonia TECHNIQUE: 1 View, AP supine, X-ray of the chest was performed. [id number]. COMPARISON: 08/25/2024 FINDINGS: Lungs and pleura: Clear lungs. No effusion. Small calcified pulmonary nodules. Heart and mediastinum: Similar size and configuration. Unremarkable mediastinal contours. Osseous structures: No acute abnormality. Tubes/lines: None Other: None. IMPRESSION: No acute intrathoracic abnormality.
--- NOTE | 2024-08-28 18:03 | P.PN ---
Date of Service: 08/28/24 Subjective Awake eating breakfast sitting on the edge of the bed Worked with physical therapy no new complaint ROS 10 point ROS as noted above, otherwise negative Physical Exam General: Alert and oriented x2, NAD, some confusion, conversing well HEENT: Atraumatic, Normocephalic Neck: Supple, 2+ carotid pulse no bruit, JVD not distended Respiratory: Clear to auscultation bilaterally, symmetrical chest wall movement, room air Cardiovascular: Normal S1 S2, Other (Systolic murmur), NSR Capillary refill: <2 Seconds Gastrointestinal: Normal active bowel sounds, Soft on palpation, ND/NT Other (left lower abdomen bruised bump) Musculoskeletal: No clubbing Integumentary: No rashes Neurological: Normal speech, Normal tone Vitals Reviewed Problem list Paroxsymal A-fib with RVR Aortic stenosis Skin infection to right lower abdomen Fluid volume deficit 2/2 vomiting/diarrhea Hyperkalemia IVY Hypertension/hyperlipidemia Diabetes mellitusNIDDM Colon cancer Assessment and Plan Paroxsymal A-fib with RVR Elevated Troponin Aortic stenosis -Troponin 27.2/72.1/84.2, likely 2/2 Afib -continue Sotalol 80 BID -Eliquis 5 BID -Cardiology recommend, Converted with sotalol -Reports TAVR will be scheduled outpatient -Recent heart cath prior to new onset Afib -Continuous telemetry Skin infection to right lower abdomen -cefpodoxime BID -Preparation for TAVR -stopped taking Sulfa d/t reaction of feeling unwell Fluid volume deficit 2/2 vomiting/diarrhea Hyperkalemia Correction: hyponatremia IVY -BUN/creatinine 30/1.42, GFR 48, K 4.8, na 133 -stable -Monitor in AM labs Hypertension/hyperlipidemia -continue home medications Diabetes mellitusNIDDM -Accucheck with SSI Colon cancer -Continue outpatient follow-up DVT ppx Eliquis Full code LOS Discharge Plan: Home Plan to discharge in: 48 Hours <Jadyn Fisher - Last Filed: 08/28/24 17:57> Patient seen and examined. Plan of care discussed with Melania Phillip. Patient currently has no complaint. He ambulated well with a walker He remained in sinus rhythm Continue sotalol and Eliquis. Continue Cefuroxime. Doxycycline added due to an episode of fever. <ankita sanders - Last Filed: 08/29/24 16:43>
[2024-08-28] MEDS: DOXYCYCLINE 100 MG CAP PO SCH (21:34)
[2024-08-28 22:00] LABS: Specific Gravity 1.021 (1.005-1.030); Sqamous Epithelial <5 /HPF (None Seen); Urine Bacteria <20 /HPF (<20); Urine Bilirubin NEGATIVE (Negative); Urine Blood Trace (Negative); Urine Clarity Clear (Clear); Urine Color Yellow (Yellow); Urine Culture Reflex Order NOT NEEDED; Urine Glucose NEGATIVE (Negative); Urine Ketones NEGATIVE (Negative); Urine Microscopic Reflex YN ORDER UMIC; Urine Mucus Slight /HPF (None Seen); Urine Nitrite NEGATIVE (Negative); Urine Protein 1+ (Negative); Urine RBC <5 /HPF (None Seen); Urine Urobilinogen Normal (Normal); Urine WBC None Seen /HPF (<5); Urine pH 5.5 (5.0-7.0)
[2024-08-28 23:12] VITALS: O2SAT 96
[2024-08-29 08:27] LABS: Anion Gap 10.5 mEq/L (5.0-15.0); Potassium 4.5 mEq/L (3.5-5.1)
[2024-08-29 14:06] VITALS: BP 114/59; TEMP 97.8
--- NOTE | 2024-08-29 16:24 | P.DS ---
Admission Date: 08/25/24 Discharge Date: 08/29/24 Disposition: ROUTINE DISCHARGE Discharge Condition: GOOD Reason for Admission: New onset A-fib with RVR Brief History of Present Illness: Diagnosis Paroxsymal A-fib with RVR Aortic stenosis Skin infection to right lower abdomen Fluid volume deficit 2/2 vomiting/diarrhea Hyperkalemia IVY Hypertension/hyperlipidemia Diabetes mellitusNIDDM Colon cancer Right groin infection (POA) HPI 08/25/24 Lauro Masters is an 84-year-old male with past medical history of hypertension, hyperlipidemia, diabetes mellitusNIDDM, colon cancer who presents to with chief complaint of dizziness, lightheadedness, and palpitations. He reports having a recent heart cath in preparation for a TAVR with Dr. Culver. He was started on sulfa for a suspected right lower abdomen skin infection that needed to be taken care of prior to the TAVR. He reports not feeling well today and thinking it was from the sulfa. His symptoms were weakness, heart palpitations, N/V/D. He called the ambulance when he was too weak to get off his bathroom floor. On admission to the ED, EKG showing HR 139, hypotension, systolic murmur, in no acute distress. Initial vitals BP 122 / 74; Pulse 100; Resp 18; Temp 98; Pulse Ox 96% Chest pain report "No acute intrathoracic abnormality" Head CT reports "No acute intracranial abnormality." Will be admitted to hospitalist service for further evaluation and treatment of A-fib with RVR. Cardiology consulted Hospital Course: Lauro Masters is a pleasant 84 year old male with a past medical history significant for history of hypertension, hyperlipidemia, diabetes mellitusNIDDM, colon cancer who was admitted to the [facility] on 08/25/24 for Afib with RVR. Lauro presented with dizziness, lightheadedness and palpitations. While in the ED he was found to be in atrial fibrillation with RVR, EKG showing heart rate of 139. He reports he had recently had a heart catheterization for evaluation and scheduling of his TAVR with Dr. Culver. On admission he was started on sotalol and Eliquis with consultation to Cardiology. He was successfully converted to normal sinus rhythm on 08/27. He is able to ambulate independently, tolerating p.o. diet, urinating without difficulty, remained on room air with satisfactory oxygenation. QT/QTc 492/457, Dr. Culver has cleared Lauro for discharge. Of note, He did spike a fever 101.4 on 08/27, doxycycline added to the antibiotic therapy with Ceftin which he has been given for right groin infection, present on admission. On 08/29/24, Lauro was seen on morning rounds and deemed medically stable for discharge. Lauro was discharged with instructions to schedule follow-up appointments with PCP and Dr. Culver. Lauro was provided prescriptions for Eliquis, sotalol, doxycycline and Ceftin. Physical Exam General: AAO x3, NAD, some confusion, conversing well HEENT: Atraumatic, Normocephalic Neck: Supple, 2+ carotid pulse no bruit, JVD not distended Respiratory: Clear to auscultation bilaterally, symmetrical chest wall movement, nonlabored breathing room air Cardiovascular: Normal S1 S2, Other (Systolic murmur), normal sinus rhythm Capillary refill: <2 Seconds Gastrointestinal: Normal active bowel sounds, Soft on palpation, ND/NT Other (left lower abdomen bruised bump) Musculoskeletal: No clubbing Integumentary: No rashes Neurological: Normal speech, Normal tone Vital Signs/Physical Exam: Temp Pulse Resp BP Pulse Ox 97.8 F 51 16 114/59 L 92 08/29/24 12:00 08/29/24 12:00 08/29/24 12:00 08/29/24 12:00 08/29/24 12:00 Laboratory Data at Discharge: WBC 5.90 thou/uL (4.3-10.9) 08/28/24 05:35 Hgb 12.8 g/dL (13.6-17.9) L 08/28/24 05:35 Hct 37.9 % (39.6-49.0) L 08/28/24 05:35 Plt Count 149 thou/uL (152-406) L 08/28/24 05:35 PT 12.9 SECONDS (9.4-12.5) H 08/25/24 15:10 INR 1.16 08/25/24 15:10 Sodium Cancelled 08/29/24 Unknown Potassium Cancelled 08/29/24 Unknown BUN Cancelled 08/29/24 Unknown Creatinine Cancelled 08/29/24 Unknown Glucose Cancelled 08/29/24 Unknown Phosphorus 3.1 mg/dL (2.5-4.9) 08/28/24 05:35 Magnesium 1.8 mg/dL (1.6-2.4) 08/28/24 05:35 Total Bilirubin 0.4 mg/dL (0.2-1.0) 08/25/24 15:10 AST 19 U/L (15-37) 08/25/24 15:10 ALT 18 U/L (16-61) 08/25/24 15:10 Alkaline Phosphatase 88 U/L (45-117) 08/25/24 15:10 Triglycerides 79 mg/dL (<150) 08/26/24 05:36 Cholesterol 102 mg/dL (<200) 08/26/24 05:36 HDL Cholesterol 40 mg/dL (40-60) 08/26/24 05:36 Cholesterol/HDL Ratio 2.55 08/26/24 05:36 Lipase 35 U/L (13-75) 08/25/24 15:10 Home Medications: Aspirin 1 tab PO DAILY 04/09/18 Carvedilol [Coreg] 3.125 mg PO BID* #180 tablet 04/09/18 Metformin HCl 1 tab PO DAILY 04/09/18 Simvastatin 1 tab PO DAILY 04/09/18 Lisinopril [Zestril] 1 tab PO DAILY 08/25/24 Pioglitazone [Actos*] 30 mg PO DAILY 08/25/24 Tamsulosin [Flomax*] 0.4 mg PO DAILY 08/25/24 Apixaban [Eliquis] 5 mg PO BID 30 Days #60 tab 08/29/24 Cefuroxime [Ceftin*] 500 mg PO BID 4 Days #16 tab 08/29/24 Doxycycline Hyclate 100 mg PO BID 8 Days #16 tab 08/29/24 Sotalol HCl [Betapace*] 80 mg PO BID 6AM 6PM 30 Days #60 tab 08/29/24 New Medications: Sotalol HCl [Betapace*] 80 mg PO BID 6AM 6PM 30 Days #60 tab Cefuroxime [Ceftin*] 500 mg PO BID 4 Days #16 tab Doxycycline Hyclate 100 mg PO BID 8 Days #16 tab Apixaban [Eliquis] 5 mg PO BID 30 Days #60 tab Physician Discharge Instructions: 1. Please call and schedule a follow-up appointment with your PCP in 3-5 days - Please follow-up with your PCP for medication refills/adjustments - Resume home medications as prescribed 2. Please call and schedule a follow-up appointment with Dr Couch in one week -Close monitoring while on sotalol 3. Continue heart healthy diet 4. activity restrictions fall precautions 5. Return to the ED if symptoms worsen New medications Sotalol 80 mg twice daily Eliquis 5 mg twice a day -monitor for bleeding -may apply Vaseline to arms and legs to prevent bleeding through Ceftin 500 mg twice daily x 4 days- for skin infection to right groin Doxycycline 100 mg twice daily x 8 days- skin infection to right groin STOP Lisinopril- causing elevated potassium Diet: AHA Activity: Fall precautions Followup: Adry Acevedo NP [Primary Care Provider] - 1-2 Weeks Sundeep Couch MD [ACTIVE - CAN ADMIT] - 1-2 Weeks
--- NOTE | 2024-08-30 07:31 | TEE ---
TRANSESOPHAGEAL ECHOCARDIOGRAM REPORT CARDIOLOGY DEPARTMENT DATE OF STUDY: 08/27/2024 HEIGHT: 6'0" WEIGHT: 200 lbs DIAGNOSIS: ATRIAL FIBRILLATION PANELBEATER COMMENTS: ALIS CARDIAC HISTORY: CATHERIZATION: SURGERY: PROSTHETIC VALVE: PACEMAKER: 2 DIMENSIONAL ASSESSMENT: RIGHT ATRIUM: LEFT ATRIUM: RIGHT VENTRICLE: LEFT VENTRICLE: TRICUSPID VALVE: MITRAL VALVE: PULMONIC VALVE: AORTIC VALVE: PERICARDIAL EFFUSION: AORTIC ROOT: EJECTION FRACTION: LEFT VENTRICULAR WALL MOTION: DOPPLER/COLOR FLOW: COMMENTS: 1. TRANSESOPHAGEAL ECHOCARDIOGRAM PROBE WAS INSERTED, NO DIFFICULTY 2. NO LEFT ATRIAL APPENDAGE THROMBUS IS SEEN TECHNOLOGIST: LEE DO
--- NOTE | 2024-08-30 11:53 | EKG ---
Test Date: 2024-08-29 Test Time: 15:25:44 Continuous Improvement Intern: MIRANDA MEASUREMENT RESULTS: Intervals: Rate: 54 [place]: 218 QRSD: 98 QT: 490 QTc: 464 [place]: P: 72 [place]: 218 QRS: 16 T: 62 INTERPRETIVE STATEMENTS: Sinus bradycardia with 1st degree AV block with premature atrial complexes with aberrant conduction Otherwise normal ECG Compared to ECG 08/27/2024 08:27:53 Atrial premature complex(es) now present Aberrant conduction of supraventricular beat(s) now present Electronically Signed On 08-30-24 11:51:47 CDT by Sundeep Couch
--- NOTE | 2024-08-30 11:53 | EKG ---
Test Date: 2024-08-29 Test Time: 15:30:11 Uniform Cap Operator: MIRANDA MEASUREMENT RESULTS: Intervals: Rate: 54 [place]: 218 QRSD: 102 QT: 500 QTc: 474 [place]: P: 74 [place]: 218 QRS: 18 T: 61 INTERPRETIVE STATEMENTS: Sinus bradycardia with 1st degree AV block with premature atrial complexes Otherwise normal ECG Compared to ECG 08/29/2024 15:25:44 Aberrant conduction of supraventricular beat(s) no longer present Electronically Signed On 08-30-24 11:51:38 CDT by Sundeep Couch
--- NOTE | 2024-08-30 22:33 | OP ---
Date of Procedure: 08/27/2024 Surgeon: STIVEN GALVAN Procedures Performed: 1.Transesophageal echocardiogram. 2.Electrical cardioversion until normal sinus rhythm. Indication: Atrial fibrillation with rapid ventricular response. Description Of Procedure: After risks, benefits, and alternatives were explained, the patient agreed to the procedure and signed informed consent. The patient was brought into the cystoscopy room. Af ter appropriate time-out, deep sedation was administered by Anesthesia and then ALIS probe was then ad vanced into the esophagus without difficulties. There was no left atrial appendage thrombus or throm bus in the heart. Then, ALIS probe was removed and a synchronized 200-joule electrical cardioversion was done successfully converting the rhythm into normal sinus rhythm. The patient was sent to [facility] in stable condition. Conclusion: Successful ALIS-guided electrical cardioversion until normal sinus rhythm. SR/MODL Voice ID: [id number] Report ID: [id number]
== END 2024-08-29 17:23 | disposition home or self-care (01) | DRG 309 ==
LOC: ER 14:38 → ERHOLD 16:53 → 2ND 17:19
PROVIDERS: ADMIT Internal Medicine; ATTEND Internal Medicine
DX: I48.0 Paroxysmal atrial fibrillation (principal); E87.0 Hyperosmolality and hypernatremia; N17.9 Acute kidney failure, unspecified; L02.211 Cutaneous abscess of abdominal wall; L03.314 Cellulitis of groin; E11.9 Type 2 diabetes mellitus without complications; I10 Essential (primary) hypertension; I35.0 Nonrheumatic aortic (valve) stenosis; E78.5 Hyperlipidemia, unspecified; I95.9 Hypotension, unspecified; K21.9 Gastro-esophageal reflux disease without esophagitis; E87.5 Hyperkalemia; I25.10 Atherosclerotic heart disease of native coronary artery without angina pectoris; R01.1 Cardiac murmur, unspecified; R53.1 Weakness; R79.89 Other specified abnormal findings of blood chemistry; Z85.038 Personal history of other malignant neoplasm of large intestine
CPT/HCPCS: 01922; 36415; 70450; 71045; 80048; 80061; 80076; 81001; 82947; 83690; 83735; 83880; 84100; 84443; 84484; 85025; 85610; 87324; 92960; 93005; 93312; 96372; 96374; 96375; 97116; 97161; 99284; J1650; J2001; J2405; J2704; J7030

== ENCOUNTER 2025-01-28 08:53 | Day surgery (SDC) | payer OTHER ==
[2025-01-19 10:21] LABS: Absolute Eosinophils 0.2 K/uL (0-0.5); Absolute Lymphocytes (CBC) 0.9 K/uL (0.7-4.9); Absolute Monocytes 0.4 K/uL (0.1-1.3); Basophils % 0.6 % (0-1.3); Eosinophils % 3.2 % (0-4.4); Hematocrit 41.6 % (39.6-49.0); Hemoglobin 13.8 g/dL (13.6-17.9); Lymphocytes % 16.1 % (15.3-44.8); MCH 31.7 pg (27.0-35.0); MCHC 33.2 g/dL (32.0-36.0); MCV 95.4 fL (80-100); MPV 7.4 fL (7.6-11.3); Monocytes % 7.6 % (3.3-12.3); Neutrophils % 72.5 % (41.7-73.7); Nucleated Red Blood Cells % 0.1 % (0-0); Platelets 212 thou/uL (152-406); RBC Red Blood Cell Count 4.36 M/uL (4.33-5.43); Red Cell Distribution Width 14.1 % (12.1-15.2)
[2025-01-19 10:34] LABS: PT Prothrombin Time 15.7 SECONDS (10.0-13.0); PTT, Activated Partial Thromb 37.2 SECONDS (24.3-36.9); Protime INR 1.4
[2025-01-19 10:35] LABS: Anion Gap 8.5 mEq/L (5.0-15.0); Potassium 4.5 mEq/L (3.5-5.1)
--- NOTE | 2025-01-20 16:48 | EKG ---
Test Date: 2025-01-19 Test Time: 10:52:48 Health And Wellness Instructor: RAJWINDER MEASUREMENT RESULTS: Intervals: Rate: 100 [place]: QRSD: 120 QT: 336 QTc: 433 [place]: P: [place]: QRS: -13 T: 111 INTERPRETIVE STATEMENTS: Atrial fibrillation Low voltage QRS Cannot rule out Anterior infarct, age undetermined T wave abnormality, consider lateral ischemia or digitalis effect Abnormal ECG Compared to ECG 08/29/2024 15:30:11 Low QRS voltage now present Myocardial infarct finding now present T-wave abnormality now present Possible ischemia now present Sinus bradycardia no longer present Atrial premature complex(es) no longer present First degree AV block no longer present Electronically Signed On 01-20-25 16:45:12 ANTHROPOLOGY INSTRUCTOR by Sundeep Couch
[~2025-01-28 08:53] MED LIST: NA CHLORIDE 0.9% 500 ML ONE
[2025-01-28] MEDS ORDERED: propofoL 200 MG/20 ML VIAL IV ONE (11:02)
[2025-01-28] MEDS ORDERED: LIDOCAINE 1% MPF 5 ML VIAL ONE (11:02)
[2025-01-28 11:35] VITALS: TEMP 97.6
[2025-01-28 12:12] VITALS: BP 117/72; O2SAT 100
--- NOTE | 2025-01-31 06:55 | TEE ---
TRANSESOPHAGEAL ECHOCARDIOGRAM REPORT CARDIOLOGY DEPARTMENT DATE OF STUDY: 01/28/2025 HEIGHT: 6'0" WEIGHT: 187 lbs DIAGNOSIS: ATRIAL FIBRILLATION OTHER SALES SUPPORT WORKER COMMENTS: ALIS CARDIAC HISTORY: CATHERIZATION: SURGERY: PROSTHETIC VALVE: PACEMAKER: 2 DIMENSIONAL ASSESSMENT: RIGHT ATRIUM: LEFT ATRIUM: RIGHT VENTRICLE: LEFT VENTRICLE: TRICUSPID VALVE: MITRAL VALVE: PULMONIC VALVE: AORTIC VALVE: PERICARDIAL EFFUSION: AORTIC ROOT: EJECTION FRACTION: LEFT VENTRICULAR WALL MOTION: DOPPLER/COLOR FLOW: COMMENTS: 1. TRANSESOPHAGEAL ECHOCARDIOGRAM WAS INSERTED, NO DIFFICULTY 2. NO LEFT ATRIAL APPENDAGE THROMBUS IS SEEN TECHNOLOGIST: LEE DO
--- NOTE | 2025-02-01 11:18 | EKG ---
Test Date: 2025-01-28 Test Time: 11:20:14 Stock Selector: LUCIO MEASUREMENT RESULTS: Intervals: Rate: 64 [place]: 242 QRSD: 130 QT: 476 QTc: 491 [place]: P: 62 [place]: 242 QRS: -40 T: 79 INTERPRETIVE STATEMENTS: Sinus rhythm with 1st degree AV block Left axis deviation Left bundle branch block Abnormal ECG Compared to ECG 01/19/2025 10:52:48 First degree AV block now present Left-axis deviation now present Left bundle-branch block now present Atrial fibrillation no longer present Myocardial infarct finding no longer present T-wave abnormality no longer present Possible ischemia no longer present Electronically Signed On 02-01-25 11:04:33 CDT by Sundeep Couch
== END 2025-01-28 12:00 | disposition home or self-care (01) ==
LOC: CCL 08:53
PROVIDERS: ATTEND Internal Medicine
DX: I48.0 Paroxysmal atrial fibrillation (principal); I35.0 Nonrheumatic aortic (valve) stenosis; I25.10 Atherosclerotic heart disease of native coronary artery without angina pectoris; I65.23 Occlusion and stenosis of bilateral carotid arteries; I44.7 Left bundle-branch block, unspecified; I12.9 Hypertensive chronic kidney disease with stage 1 through stage 4 chronic kidney disease, or unspecified chronic kidney disease; E11.22 Type 2 diabetes mellitus with diabetic chronic kidney disease; N18.30 Chronic kidney disease, stage 3 unspecified; E78.5 Hyperlipidemia, unspecified; Z79.01 Long term (current) use of anticoagulants; Z79.82 Long term (current) use of aspirin; Z79.899 Other long term (current) drug therapy
CPT/HCPCS: 93005 ×2; 93312; 85025; 80048; 36415; 85610; 85730; 92960; J2704; J2003; J7040; 01922

== ENCOUNTER 2025-09-12 19:57 | Emergency (ER) | payer OTHER ==
[2025-09-12] MEDS ORDERED: KETOROLAC 30 MG/ML INJ ONE (20:31)
--- NOTE | 2025-09-12 20:43 | EDPHYS ---
Physician Documentation [facility] Name: Lauro Masters Age: 85 yrs Sex: Male : 1940 Arrival Date: 09/12/2025 Time: 19:57 Bed 11 Private MD: ED Physician Wagner Powell HPI: 09/12 20:57 This 85 yrs old Male presents to ER via Ambulatory with complaints of Neck Pain, <24hrs kb Old. 20:57 Pt is an 85 year old male who presents for pain to right side of neck that started 2 kb days ago. States he had an injury in 1956 and every once in a while his neck starts spasming. Denies tenderness, states it hurts no matter what he does. Pt has hydrocodone at home, which helped yesterday, but not today. Denies any new injuries, falls. Historical: - Allergies: 20:16 Sulfa (Sulfonamide Antibiotics); hb - PMHx: 20:16 AFIB; COLON CA; Diabetes - NIDDM; Hyperlipidemia; Hypertension; hb - PSHx: 20:16 colon resection; heart valve replacement; hernia repair; hb - Immunization history:: Adult Immunizations up to date. - Infectious Disease History:: Denies. - Social history:: Smoking status: Patient denies any tobacco usage or history of. ROS: 20:56 Constitutional: As per HPI kb Exam: 20:56 Constitutional: This is a well developed, well nourished patient who is awake, alert, kb and in no acute distress. Head/Face: Normocephalic, atraumatic. ENT: Moist Mucous membranes Neck: Trachea midline and no cervical lymphadenopathy. Supple, full range of motion without nuchal rigidity, or vertebral point tenderness. No Meningismus. Cardiovascular: Regular rate Respiratory: Respirations even and unlabored. No increased work of breathing. Talking in full sentences Skin: Warm, dry with normal turgor. Normal color. MS/ Extremity: Pulses equal, no cyanosis. Neurovascular intact. Full, normal range of motion. Neuro: Awake and alert, GCS 15, oriented to person, place, time, and situation. Vital Signs: 20:14 BP 173 / 73; Pulse 53; Resp 16; Temp 98.1; Pulse Ox 100% on R/A; Pain 7/10; hb 20:14 Pain Scale: Adult hb MDM: 20:08 Medical Screening Exam initiated kb 20:58 Differential diagnosis: strain, muscle spasm, fracture. Data reviewed: vital signs, kb nurses notes. Test considered but Not performed: X-ray: xray considered but pt has no c-spine tenderness. CT: ct soft tissue neck considered but pt has no swelling, tenderness, fever, recent illness. Counseling: I had a detailed discussion with the patient and/or guardian regarding the historical points, exam findings, and any diagnostic results supporting the discharge/admit diagnosis, the need for outpatient follow up, a family practitioner, to return to the emergency department if symptoms worsen or persist or if there are any questions or concerns that arise at home. Administered Medications: 20:42 Drug: Dexamethasone IM 10 mg IM once Route: IM; Site: right deltoid; jb4 20:58 Follow up: Response: No adverse reaction; Marked relief of symptoms; Pain is decreased jb4 20:42 Drug: Ketorolac IM 30 mg IM once Route: IM; Site: left deltoid; jb4 20:58 Follow up: Response: No adverse reaction; Marked relief of symptoms; Pain is decreased jb4 Disposition: 09/13 04:00 Co-signature as Attending Physician, Wagner Powell MD I agree with the assessment sp4 and plan of care. I reviewed the patient's care provided by Advanced Practice Provider \T\ agree w/ the diagnosis \T\ care plan. I personally saw the pt \T\ performed a substantive portion of the visit, incldng all aspects of the (History/Exam/Medical Decision Making). Disposition Summary: 09/12/25 20:43 Discharge Ordered Notes: Location: Home kb Condition: Stable kb Diagnosis - Strain of muscle, fascia and tendon at neck level kb Followup: kb - With: Emergency Department - When: As needed - Reason: Worsening of condition Followup: kb - With: Private Physician - When: 2 - 3 days - Reason: Recheck today's complaints, Continuance of care, Re-evaluation by your physician Discharge Instructions: - Discharge Summary Sheet kb - Muscle Strain, [id number] kb Forms: - Medication Reconciliation Form kb - Antibiotic Education kb - Prescription Opioid Use kb - Patient Portal Instructions kb - Leadership Thank You Letter kb Prescriptions: - orphenadrine citrate 100 mg Oral Tablet Sustained Release - take 1 tablet ORAL route 2 times per day As needed; 20 tablet; Refills: 0, kb Product Selection Permitted Signatures: Jessica Correa, CHAIM MARK-Shell Arboleda, RN RN hb Curtis Sewell RN RN jb4 Wagner Powell MD MD sp4
--- NOTE | 2025-09-12 20:43 | ER ---
Nurse's Notes [facility] Name: Lauro Masters Age: 85 yrs Sex: Male : 1940 Arrival Date: 09/12/2025 Time: 19:57 Bed 11 Private MD: Diagnosis: Strain of muscle, fascia and tendon at neck level Presentation: 09/12 20:14 Chief complaint: Patient states: RT NECK PAIN THAT BEGAN HURTING ON FRIDAY. hb Coronavirus screen: At this time, the client does not indicate any symptoms associated with coronavirus-19. Ebola Screen: No symptoms or risks identified at this time. Acute neurological deficit: none identified. Initial Sepsis Screen: Does the patient meet any 2 criteria? No. Patient's initial sepsis screen is negative. Does the patient have a suspected source of infection? No. Patient's initial sepsis screen is negative. Risk Assessment: Do you want to hurt yourself or someone else? Patient reports no desire to harm self or others. Onset of symptoms was September 10, 2025. 20:14 Method Of Arrival: Ambulatory 20:14 Acuity: KATHLEEN 4 hb Triage Assessment: 20:16 General: Appears in no apparent distress. uncomfortable, Behavior is calm, cooperative, hb appropriate for age. Pain: Complains of pain in right posterior aspect of neck and right lateral aspect of neck Pain currently is 7 out of 10 on a pain scale. Musculoskeletal: Reports pain in right posterior aspect of neck and right lateral aspect of neck. Historical: - Allergies: 20:16 Sulfa (Sulfonamide Antibiotics); hb - PMHx: 20:16 AFIB; COLON CA; Diabetes - NIDDM; Hyperlipidemia; Hypertension; hb - PSHx: 20:16 colon resection; heart valve replacement; hernia repair; hb - Immunization history:: Adult Immunizations up to date. - Infectious Disease History:: Denies. - Social history:: Smoking status: Patient denies any tobacco usage or history of. Screenin:00 [facility] ED Fall Risk Assessment (Adult) History of falling in the last 3 months, jb4 including since admission No falls in past 3 months (0 pts) Confusion or Disorientation No (0 pts) Intoxicated or Sedated No (0 pts) Impaired Gait No (0 pts) Mobility Assist Device Used No (0 pt) Altered Elimination No (0 pt) Score/Fall Risk Level 0 - 2 = Low Risk Oriented to surroundings, Maintained a safe environment. Abuse screen: Denies threats or abuse. Nutritional screening: No deficits noted. Tuberculosis screening: No symptoms or risk factors identified. Assessment: 20:30 General: Appears in no apparent distress. comfortable, Behavior is calm, cooperative, jb4 appropriate for age. Pain: Complains of pain in neck Pain does not radiate. Pain currently is 10 out of 10 on a pain scale. Neuro: Level of Consciousness is awake, alert, obeys commands, Oriented to person, place, time, situation. Cardiovascular: Patient's skin is warm and dry. Respiratory: Airway is patent Respiratory effort is even, unlabored, Respiratory pattern is regular, symmetrical. Derm: Skin is fragile, has skin tears on right forearm Skin is pink, warm \T\ dry. Musculoskeletal: Circulation, motion, and sensation intact. Range of motion: intact in all extremities. 21:00 Reassessment: Patient appears in no apparent distress at this time. Patient and/or jb4 family updated on plan of care and expected duration. Pain level reassessed. Patient is alert, oriented x 3, equal unlabored respirations, skin warm/dry/pink. Patient states feeling better. Vital Signs: 20:14 BP 173 / 73; Pulse 53; Resp 16; Temp 98.1; Pulse Ox 100% on R/A; Pain 7/10; hb 20:14 Pain Scale: Adult hb ED Course: 20:04 Patient arrived in ED. im 20:08 [facility] kb 20:08 Wagner Powell MD is Attending Physician. kb 20:16 Triage completed. hb 20:16 Arm band placed on right wrist. hb 21:00 Patient has correct armband on for positive identification. Bed in low position. Call jb4 light in reach. Side rails up X 1. Provided Education on: plan of care. 21:00 No provider procedures requiring assistance completed. Patient did not have IV access jb4 during this emergency room visit. Administered Medications: 20:42 Drug: Dexamethasone IM 10 mg IM once Route: IM; Site: right deltoid; jb4 20:58 Follow up: Response: No adverse reaction; Marked relief of symptoms; Pain is decreased jb4 20:42 Drug: Ketorolac IM 30 mg IM once Route: IM; Site: left deltoid; jb4 20:58 Follow up: Response: No adverse reaction; Marked relief of symptoms; Pain is decreased jb4 Medication: 21:00 VIS not applicable for this client. jb4 Outcome: 20:43 Discharge ordered by . tamiko 21:00 Discharged to home ambulatory, jb4 21:00 Condition: stable 21:00 Discharge instructions given to patient, Instructed on discharge instructions, follow up and referral plans. the need for transfer, no driving heavy equipment, medication usage, Demonstrated understanding of instructions, follow-up care, medications, 21:01 Patient left the ED. jb4 Signatures: Jessica Correa, [employer] DEEDEE-Shell Arboleda RN RN Curtis Sewell RN RN jb4 Paola North
[2025-09-13 03:46] VITALS: BP 173/73; TEMP 98.1; O2SAT 100
== END 2025-09-12 21:01 | disposition home or self-care (01) ==
LOC: ER 19:57
DX: S16.1XXA Strain of muscle, fascia and tendon at neck level, initial encounter (principal)
CPT/HCPCS: 96372; 99284; J1885; J1100